=== PATIENT | male | born 1930 | race Caucasian/White ===

== ENCOUNTER 2016-02-13 19:03 | Inpatient (IN) | payer MEDICARE, OTHER ==
[~2016-02-13] VITALS: Ht 175.3 cm; Wt 91.1 kg
[~2016-02-13 19:03] MED LIST: AMLO5 PO; ASPI81CH37 CHEW; FERR325T PO; GLARGINE; LIPI40TA PO; METO50TA PO; NIAC50TA4 PO; NOVORP2 SQ; PRAD75CA PO
[2016-02-13 19:14] VITALS: BP 139/64; PULSE 65; RESP 20; TEMP 98.1; O2SAT 86
[2016-02-13] MEDS ORDERED: SODIUM CHLORIDE 0.9% FLUSH 5 ML FLUSH IVF PRN (19:15)
--- NOTE | 2016-02-13 19:17 | PD ---
HPI Chief Complaint: altered mental status Time Seen by Provider: 19:08 Travel History International Travel<30 days: No Contact w/Intl Traveler<30days: No History of Present Illness HPI This is an 85-year-old male who presents to the emergency department with fatigue, lightheadedness and weakness over the past week, with poor energy and poor exercise intolerance. His reports that he's been confused today. He was seen by Dr. correa yesterday in clinic and told everything looked good. He has been recently treated for anemia and was started on iron pills. He does say he has had black stools but this is ever since he started taking iron. He' s on Pradaxa. His thinks it's for his congestive heart failure. PFSH Past Medical History Arthritis: Yes Blood Disorders: No Anxiety: Yes (POST TRAUMATIC STRESS) Heart Rhythm Problems: No Cancer: Yes (BLADDER) Cardiac Catheterization: No Cardiovascular Problems: Yes High Cholesterol: No Chest Pain: Yes Congestive Heart Failure: No Diabetes: Yes Diminished Hearing: Yes (HEARING AIDS) Genitourinary: Yes Hypertension: Yes Immune Disorder: No Musculoskeletal: No Neurologic: No Reproductive: No Respiratory: No Myocardial Infarction: No Sickle Cell Disease: No Past Surgical History Abdominal Surgery: No Appendectomy: Yes Cardiac Surgery: Yes Cholecystectomy: Yes Coronary Artery Bypass Graft: No Ear Surgery: No Endocrine Surgery: No Eye Surgery: No Genitourinary Surgery: Yes Gynecologic Surgery: No Oral Surgery: No Thoracic Surgery: No Other Surgery: Yes Social History Alcohol Use: No Tobacco Use: No Substance Use: No Allergies-Medications (Allergen,Severity, Reaction): Coded Allergies: No Known Allergies (Verified , 02/18/10) Reported Meds & Prescriptions Reported Meds & Active Scripts Active Ferrous Sulfate 325 Mg Tab 325 Mg PO BID Pradaxa (Dabigatran) 75 Mg Cap 75 Mg PO BID Lipitor (Atorvastatin Calcium) 40 Mg Tab 40 Mg PO DAILY Norvasc (Amlodipine Besylate) 5 Mg Tab 5 Mg PO DAILY Reported [Glargine] Niacin 50 Mg Tab 20 Mg PO BID Metoprolol Tartrate 50 Mg Tab 50 Mg PO BID Novolin R Inj (Insulin Human Regular) 1,000 Unit/10 Ml Vial 0 SQ DIRECTED Sliding Scale As Directed. Aspirin Low Dose (Aspirin) 81 Mg Chew 81 Mg CHEW DAILY Review of Systems Except as stated in HPI: all other systems reviewed are Neg Physical Exam Narrative GENERAL: Pale, unwell-appearing SKIN: Warm and dry. HEAD: Atraumatic. Normocephalic. EYES: Pupils equal and round. No injection or drainage. Pale sclera. ENT: Dry mucous membranes. NECK: Trachea midline. CARDIOVASCULAR: Regular rate and rhythm. No murmur appreciated. RESPIRATORY: Clear to auscultation. Breath sounds equal bilaterally. GASTROINTESTINAL: Abdomen soft, non-tender, nondistended. MUSCULOSKELETAL: No obvious deformities. NEUROLOGICAL: Awake and alert. No obvious cranial nerve deficits. No dysarthria or aphasia. No upper or lower extremity drift. No upper extremity ataxia. PSYCHIATRIC: Appropriate mood and affect; insight and judgment normal. Data Data Orders Complete Blood Count With Diff (02/13/16 19:05) Comprehensive Metabolic Panel (02/13/16 19:05) Prothrombin Time / Inr (Pt) (02/13/16 19:05) Act Partial Throm Time (Ptt) (02/13/16 19:05) Urinalysis - C+S If Indicated (02/13/16 19:05) Type And Screen (02/13/16 19:05) Ecg Monitoring (02/13/16 19:05) Iv Access Insert/Monitor (02/13/16 19:05) Oximetry (02/13/16 19:05) Sodium Chloride 0.9% Flush (Ns Flush) (02/13/16 19:15) Troponin I (02/13/16 19:05) Thyroid Stimulating Hormone (02/13/16 19:05) Ct Brain W/O Iv Contrast(Rout) (02/13/16 ) MDM Medical Decision Making Medical Screen Exam Complete: Yes Emergency Medical Condition: Yes Interpretation(s) Vital signs are reassuring Differential Diagnosis GI bleed, urinary tract infection, dehydration, stroke, myocardial infarction, arrhythmia Narrative Course This is an 85-year-old male who presents to the emergency department with generalized fatigue and weakness that's been worsening over the past 5 days. He is very pale appearing on exam. Patient was placed on a monitor and an IV was established. EKG is demonstrates some ST depressions in the lateral leads. Patient was Hemoccult positive although he is on iron supplementation. I suspect that the patient is suffering from a GI bleed although differential is broad and includes silent myocardial infarction, urinary tract infection, and electrolyte abnormality. CT of the head will also be obtained given the patient 's episode of confusion although currently he has a normal nonfocal neurologic exam. The case Was discussed with Dr. Narvaez. Bobbi Nova MD Feb 13, 2016 19:16
[2016-02-13 19:44] LABS: AUTOMATED NEUTROPHIL # 5.7 TH/MM3 (1.8-7.7); BASOPHIL # 0.1 TH/MM3 (0-0.2); BASOPHIL % 0.6 % (0.0-2.0); EOSINOPHIL # 0.1 TH/MM3 (0-0.4); EOSINOPHIL % 0.5 % (0.0-4.0); LYMPH % 31.4 % (9.0-44.0); LYMPHOCYTE # 3.1 TH/MM3 (1.0-4.8); MEAN CELL VOLUME 101.1 FL (80.0-100.0); MEAN CORPUSCULAR HEMOGLOBIN 31.5 PG (27.0-34.0); MEAN CORPUSCULAR HGB CONC 31.2 % (32.0-36.0); MONO % 9.9 % (0.0-8.0); NEUT % 57.6 % (16.0-70.0); PLATELET COUNT 184 TH/MM3 (150-450); RED BLOOD COUNT 1.13 MIL/MM3 (4.50-5.90); WHITE BLOOD COUNT 9.9 TH/MM3 (4.0-11.0)
[2016-02-13 19:45] LABS: HEMO FLAGS AUTO DIFF
[2016-02-13 19:48] LABS: HEMATOCRIT 11.4 % (39.0-51.0)
--- NOTE | 2016-02-13 19:52 | RADRPT ---
EXAM DATE/TIME: 02/13/2016 19:24 [facility] COMPARISON: No previous studies available for comparison. INDICATIONS : Confusion fatigue,lightedheadness and weakness foe one weak RADIATION DOSE: 56.35 CTDIvol (mGy) MEDICAL HISTORY : Cardiovascular disease. Hypertension. Carcinoma, bladder.Diabetes SURGICAL HISTORY : CABG Appendectomy.Cholecystectomy. ENCOUNTER: Initial ACUITY: 1 week PAIN SCALE: 0/10 LOCATION: cranial TECHNIQUE: Multiple contiguous axial images were obtained of the head. Using automated exposure control and adj ustment of the mA and/or kV according to patient size, radiation dose was kept as low as reasonably a chievable to obtain optimal diagnostic quality images. FINDINGS: CEREBRUM: There is cerebral atrophy. Round calcified density in the right sella measures 11 mm. The ventricles are normal for age. Areas of low-attenuation are seen in the white matter and left basal ganglia. No evidence of midline shift, mass lesion, hemorrhage or acute infarction. No extra-axial fluid collect ions are seen. POSTERIOR FOSSA: The cerebellum and brainstem are intact. The 4th ventricle is midline. The cerebellopontine angle i s unremarkable. EXTRACRANIAL: The visualized portion of the orbits is intact. SKULL: The calvaria is intact. No evidence of skull fracture. CONCLUSION: 1. Cerebral atrophy and chronic ischemic small vessel vasculopathy. 2. Calcified density right sella. Aneurysm cannot be excluded. CTA brain may be warranted. Eitan Verdugo MD on February 13, 2016 at 19:48 Board Certified Radiologist. This report was verified electronically.
[2016-02-13 19:59] LABS: ANION GAP 15 MEQ/L (5-15); AST (GOT) 8 U/L (15-37); BICARBONATE 14.8 MEQ/L (21.0-32.0); BLOOD UREA NITROGEN 87 MG/DL (7-18); CHLORIDE 112 MEQ/L (98-107); GLOMERULAR FILTRATION RATE 23 ML/MIN (>89); POTASSIUM 4.7 MEQ/L (3.5-5.1); SODIUM (NA) 142 MEQ/L (136-145)
[2016-02-13 20:00] LABS: INTERNATIONAL NORMALIZED RATIO 1.1 RATIO; PROTHROMBIN TIME - PATIENT 12.4 SEC (9.8-11.6)
[2016-02-13] MEDS ORDERED: SODIUM CHLOR 0.9% 250 ML INJ 250 ML IV ONE (20:00)
[2016-02-13 20:09] LABS: ALKALINE PHOSPHATASE 57 U/L (45-117); ALT (GPT) 11 U/L (12-78); TOTAL BILIRUBIN ADULT 0.3 MG/DL (0.2-1.0)
--- NOTE | 2016-02-13 20:11 | PD ---
Physical Exam Date Seen by Provider: Feb 13, 2016 Time Seen by Provider: 19:59 Narrative 85-year-old male came to the emergency room brought by EMS with history of altered mental status, slurred speech that was transient and feeling weak for past 4 days. Patient had gone to the CT scanner and hence I was getting all the history from his . Patient has significant coronary artery disease and was seen by his advertising account manager yesterday. However today patient somehow made it to his friend's place to play cards and started having some speech issue. His brought him outside and put in in the car to drive him to the emergency room and that's when he just slumped into the seat and seemed to be unresponsive and staring. As per the she thought he was . 911 was called and patient was brought to the emergency room. Soon after I spoke with the patient was brought back from the CAT scan her and I got similar history from the patient. At that point he was awake and talking and responding appropriately to all my questions. He did not display any symptoms of stroke at that point. Patient did appear very pale. Patient was seen by the previous ER physician as soon as he came in and she had done a stool Hemoccult which was positive. Patient is on Pardaxa atrial fibrillation as per his . His was concerned that he might be anemic since he appeared so pale. Critical lab result was called from the lab personnel on hemoglobin and hematocrit which was dictated to be 3.4/11.5. I relayed this information to the patient and his family and let them know that he required blood transfusion. He was okay with that plan. I spoke with Dr. Grant from GI and asked for a consult. Patient will be getting IV Protonix bolus and drip. He will do an endoscopy and colonoscopy. I reviewed patient's test of the blood test results which reveals acute renal failure with metabolic acidosis probably all related to the GI bleeding. I have ordered 4 units of PRBC transfusion. In my opinion patient should go to the intensive care unit and I spoke with the chief nursing officer who agreed. Currently patient remains hemodynamically stable. CAT scan of the head was done and was resulted to be within normal limits from acute hemorrhage or any acute changes standpoint. Data Data Last Documented VS Vital Signs Date Time Temp Pulse Resp B/P Pulse Ox O2 Delivery O2 Flow Rate FiO2 02/13/16 19:14 98.1 65 20 139/64 86 Orders Complete Blood Count With Diff (02/13/16 19:05) Comprehensive Metabolic Panel (02/13/16 19:05) Prothrombin Time / Inr (Pt) (02/13/16 19:05) Act Partial Throm Time (Ptt) (02/13/16 19:05) Urinalysis - C+S If Indicated (02/13/16 19:05) Type And Screen (02/13/16 19:05) Ecg Monitoring (02/13/16 19:05) Iv Access Insert/Monitor (02/13/16 19:05) Oximetry (02/13/16 19:05) Sodium Chloride 0.9% Flush (Ns Flush) (02/13/16 19:15) Troponin I (02/13/16 19:05) Thyroid Stimulating Hormone (02/13/16 19:05) Ct Brain W/O Iv Contrast(Rout) (02/13/16 ) Red Blood Cells (Rbc) (02/13/16 19:57) Blood Product Administration .UPON TRANSFUSION (02/13/16 19:57) Sodium Chlor 0.9% 250 Ml Inj (Ns 250 Ml (02/13/16 20:00) Admit Order (Ed Use Only) (02/13/16 20:13) Pantoprazole Inj (Protonix Inj) (02/13/16 21:15) Pantoprazole Inj (Protonix Inj) (02/13/16 21:15) Labs Laboratory Tests Test 02/13/16 02/13/16 19:10 19:57 Prothrombin Time 12.4 SEC Prothromb Time International 1.1 RATIO Ratio Activated Partial 21.0 SEC Thromboplast Time Sodium Level 142 MEQ/L Potassium Level 4.7 MEQ/L Chloride Level 112 MEQ/L Carbon Dioxide Level 14.8 MEQ/L Anion Gap 15 MEQ/L Blood Urea Nitrogen 87 MG/DL Creatinine 2.68 MG/DL Estimat Glomerular Filtration 23 ML/MIN Rate Random Glucose 254 MG/DL Calcium Level 8.9 MG/DL Total Bilirubin 0.3 MG/DL Aspartate Amino Transf 8 U/L (AST/SGOT) Alanine Aminotransferase 11 U/L (ALT/SGPT) Alkaline Phosphatase 57 U/L Troponin I 0.03 NG/ML Total Protein 5.5 GM/DL Albumin 2.7 GM/DL Thyroid Stimulating Hormone 1.180 uIU/ML 3rd Gen Blood Type O NEGATIVE Antibody Screen NEGATIVE White Blood Count 9.9 TH/MM3 Red Blood Count 1.13 MIL/MM3 Hemoglobin 3.5 GM/DL Hematocrit 11.4 % Mean Corpuscular Volume 101.1 FL Mean Corpuscular Hemoglobin 31.5 PG Mean Corpuscular Hemoglobin 31.2 % Concent Red Cell Distribution Width 15.0 % Platelet Count 184 TH/MM3 Mean Platelet Volume 8.1 FL Neutrophils (%) (Auto) 57.6 % Lymphocytes (%) (Auto) 31.4 % Monocytes (%) (Auto) 9.9 % Eosinophils (%) (Auto) 0.5 % Basophils (%) (Auto) 0.6 % Neutrophils # (Auto) 5.7 TH/MM3 Lymphocytes # (Auto) 3.1 TH/MM3 Monocytes # (Auto) 1.0 TH/MM3 Eosinophils # (Auto) 0.1 TH/MM3 Basophils # (Auto) 0.1 TH/MM3 CBC Comment AUTO DIFF Differential Comment Crossmatch Leukocyte-Reduced Red Blood Cells Blood Bank Comment [facility] Supervised Visit with DAISHA: No Interpretation(s) Twelve-lead EKG was reviewed by me. Normal sinus rhythm, left axis deviation, interventricular conduction delay, left axis deviation, lateral T wave inversion. Heart rate of 69 bpm. Differential Diagnosis Severe anemia, intracranial hemorrhage, GI bleed Critical Care Narrative Aggregate critical care time was 45 minutes. Time to perform other separately billable procedures was not included in the critical care time. My time did not include minutes spent treating any other patients simultaneously or on activities that did not directly contribute to the patient's treatment. The services I provided to this patient were to treat and/or prevent clinically significant deterioration that could result in: GI bleed, severe anemia, symptomatic anemia, acute renal failure, metabolic acidosis I provided critical care services requiring my management, as noted below: Chart data review, documentation time, medication orders and management, vital sign assessments/reviewing monitor data, ordering and reviewing lab tests, ordering and interpreting/reviewing x-rays and diagnostic studies, care of the patient and discussion of the patient with the admitting physicians. HemaPrompt Test Point of Care Internal Pos. & Neg. Controls: Passed Fecal Specimen Occult Blood: Positive Physician Communication Physician Communication Dr. Grant, Dr. Cain Diagnosis Primary Impression: GI bleed Qualified Code: K92.2 - Gastrointestinal hemorrhage, unspecified gastrointestinal hemorrhage type Additional Impressions: Severe anemia Symptomatic anemia Acute renal failure Qualified Code: N17.9 - Acute renal failure, unspecified acute renal failure type Metabolic acidosis Admitting Information Admitting Physician Requests: Admit Jam Narvaez MD Feb 13, 2016 20:11
[2016-02-13 20:57] VITALS: BP 133/60; PULSE 63; RESP 20; TEMP 98.1; O2SAT 99
[2016-02-13] MEDS ORDERED: ACETAMINOPHEN 325 MG TAB PO PRN (21:00)
[2016-02-13] MEDS ORDERED: MAGNESIUM OXIDE 400 MG TAB PO PRN (21:00)
[2016-02-13] MEDS ORDERED: POTASSIUM CL 40 MEQ/30 ML LIQ UDC PO/TUBE PRN ×2 (21:00)
[2016-02-13] MEDS ORDERED: MAGNESIUM SULFATE INJ 2 GM in SODIUM CHLORIDE 0.9% INJ 96 ML IV PRN (21:00)
[2016-02-13] MEDS ORDERED: CHLORHEXIDINE GLUCONATE 2 % 1 PACK (2 CLOTHS) TOP PRN (21:00)
[2016-02-13] MEDS ORDERED: RESP: ALBUTEROL 2.5 MG/IPRATROPIUM 0.5 MG NEB (PRN) INH (21:00)
[2016-02-13] MEDS ORDERED: SODIUM PHOSPHATE INJ 30 MMOL in SODIUM CHLOR 0.9% 250 ML INJ 240 ML IV PRN (21:00)
[2016-02-13] MEDS ORDERED: POTASSIUM PHOSPHATE INJ 30 MMOL in SODIUM CHLOR 0.9% 250 ML INJ 250 ML IV PRN (21:00)
[2016-02-13] MEDS ORDERED: MISCELLANEOUS NURSING INFORMATION XX SCH (21:00)
[2016-02-13] MEDS ORDERED: POTASSIUM PHOSPHATE MONOBASIC 500 MG TAB PO/TUBE PRN (21:00)
[2016-02-13] MEDS ORDERED: MAGNESIUM SULFATE INJ 4 GM in SODIUM CHLORIDE 0.9% INJ 92 ML IV PRN (21:00)
[2016-02-13] MEDS ORDERED: POTASSIUM CHLOR 20 MEQ PREMIX 100 ML IV PRN ×2 (21:00)
[2016-02-13] MEDS ORDERED: POTASSIUM CHLOR 40 MEQ PREMIX 100 ML IV PRN ×2 (21:00)
[2016-02-13] MEDS ORDERED: POTASSIUM PHOSPHATE MONOBASIC 500 MG TAB PO PRN (21:00)
[2016-02-13 21:15] VITALS: BP 146/70; PULSE 66; RESP 20; TEMP 97.9; O2SAT 99
[2016-02-13] MEDS ORDERED: PANTOPRAZOLE INJ 80 MG in SODIUM CHLORIDE 0.9% INJ 35 ML IV ONE (21:15)
--- NOTE | 2016-02-13 21:15 | HHI.HP ---
[facility] Service Critical Care Medicine Primary Care Physician Nathan Reyes III, MD Admission Diagnosis GI bleed, severe anemia, symptomatic anemia Diagnosis: Travel History International Travel<30 Days: No Contact w/Intl Traveler <30 Da: No Traveled to Known Affected Are: No History of Present Illness This is an 85-year-old male who presents to the emergency department with fatigue, lightheadedness and weakness he states that began to occur several days ago. The patient's spouse reported he had periods of confusion. The patient was previously admitted 01/22/16 as an inpatient with atrial fibrillation with RVR, and CHF exacerbation at which point he was noted to be anemic. He was started on ferrous sulfate and instructed to return to his primary care provider for a GI workup to include endoscopies. He had noticed that his stools had become darker but associated to consumption of iron medication. The patient's presenting hemoglobin 3.5. Of note the patient has a history of paroxysmal atrial fibrillation and has been on Pradaxa 75 mg BID, and ASA. Critical care medicine is consulted for treatment and management Review of Systems Constitutional: COMPLAINS OF: Fatigue Respiratory: COMPLAINS OF: Shortness of breath Cardiovascular: COMPLAINS OF: Dyspnea on Exertion, Lower Extremity Edema, Orthopnea Past Family Social History Allergies: Coded Allergies: No Known Allergies (Verified , 02/13/16) Past Medical History Past Medical History see HPI Arthritis Posttraumatic stress disorder Stage IV bladder cancer status post resection and chemotherapy Hypertension Hyperlipidemia Type 2 diabetes mellitus Atrial fibrillation with RVR (see EKG 01/08/2007 and 01/16/2007) Stage 3 CKD Past Surgical History see HPI Appendectomy Cholecystectomy Bladder cancer with ostomy Cataract surgery Reported Medications Niacin 50 Mg Tab 20 Mg PO BID Metoprolol Tartrate 50 Mg Tab 50 Mg PO BID Novolin R Inj (Insulin Human Regular) 1,000 Unit/10 Ml Vial 0 SQ DIRECTED Sliding Scale As Directed. Aspirin Low Dose (Aspirin) 81 Mg Chew 81 Mg CHEW DAILY Physical Exam Vital Signs Vital Signs Date Time Temp Pulse Resp B/P Pulse Ox O2 Delivery O2 Flow Rate FiO2 02/13/16 20:57 98.1 63 20 133/60 99 Room Air 02/13/16 19:14 98.1 65 20 139/64 86 Physical Exam GENERAL: Very pale appearing critically ill male lying semirecumbent in bed SKIN: Warm and dry. HEAD: Atraumatic. Normocephalic. EYES: Pupils equal and round. No scleral icterus. No injection or drainage. ENT: No nasal bleeding or discharge. Mucous membranes pink and moist. Nasal cannula at 2 L/minute NECK: Trachea midline. No JVD. CARDIOVASCULAR: Normal rate,regular rhythm. RESPIRATORY: No accessory muscle use. Clear to auscultation. Breath sounds equal bilaterally. GASTROINTESTINAL: Abdomen soft, non-tender, nondistended. No guarding. MUSCULOSKELETAL: Extremities without clubbing, cyanosis. Ankle edema noted .No obvious deformities. NEUROLOGICAL: Awake and alert. RASS 0, oriented. No gross focal/sensory deficits. Follows commands in all 4 extremities. Laboratory Laboratory Tests Test 02/13/16 02/13/16 19:10 19:57 White Blood Count 9.9 Red Blood Count 1.13 Hemoglobin 3.5 Hematocrit 11.4 Mean Corpuscular Volume 101.1 Mean Corpuscular Hemoglobin 31.5 Mean Corpuscular Hemoglobin 31.2 Concent Red Cell Distribution Width 15.0 Platelet Count 184 Mean Platelet Volume 8.1 Neutrophils (%) (Auto) 57.6 Lymphocytes (%) (Auto) 31.4 Monocytes (%) (Auto) 9.9 Eosinophils (%) (Auto) 0.5 Basophils (%) (Auto) 0.6 Neutrophils # (Auto) 5.7 Lymphocytes # (Auto) 3.1 Monocytes # (Auto) 1.0 Eosinophils # (Auto) 0.1 Basophils # (Auto) 0.1 CBC Comment AUTO DIFF Differential Comment Prothrombin Time 12.4 Prothromb Time International 1.1 Ratio Activated Partial 21.0 Thromboplast Time Sodium Level 142 Potassium Level 4.7 Chloride Level 112 Carbon Dioxide Level 14.8 Anion Gap 15 Blood Urea Nitrogen 87 Creatinine 2.68 Estimat Glomerular Filtration 23 Rate Random Glucose 254 Calcium Level 8.9 Total Bilirubin 0.3 Aspartate Amino Transf 8 (AST/SGOT) Alanine Aminotransferase 11 (ALT/SGPT) Alkaline Phosphatase 57 Troponin I 0.03 Total Protein 5.5 Albumin 2.7 Thyroid Stimulating Hormone 1.180 3rd Gen Blood Type O NEGATIVE Antibody Screen NEGATIVE Crossmatch Leukocyte-Reduced Red Blood Cells Blood Bank Comment Result Diagram: 02/13/16190902/13/161909 Septic Shock Reassessment Heart: Irregular Lungs: Clear Skin: Warm Peripheral Pulses: Bounding Right Radial Bounding Left Radial Bounding Right Dorsalis Pedis Bounding Left Dorsalis Pedis Capillary Refill: Brisk Assessment and Plan Assessment and Plan This is an 85-year-old male, with symptomatic severe anemia, with weakness, confusion, and shortness of breath secondary to GI bleed. The patient has a known history of atrial fibrillation and has scheduled dosing twice a day of Pradaxa and ASA for his coronary artery disease. The patient has chronic kidney disease stage 3, and this possibly may be anticoagulant associated bleeding, secondary to decreased renal clearance, or of a GI focus. Neurologic: Confusion/altered mental status H/O PTSD -02/12-CT negative -Confusion resolved upon my examination, patient is alert and oriented 3 -Neurochecks per ICU protocol -Sleep hygiene for prevention of delirium Respiratory: Respiratory distress History of smoking -Maintain O2 sat greater than 92%. Continue O2 at 2 L nasal cannula -Bronchodilators PRN Cardiovascular: H/O CHF exacerbation(01/22/2016) Coronary artery disease H/O CABG Hyperlipidemia Ventricular hypertrophy Paroxysmal A. fib Hypertension -Last hospitalization A. fib with RVR w/ CHF [id number]/13/2016-the patient was placed on beta blockers with resolution -02/12 EKG-ST depression in lateral leads( probable demand ischemia) -Cardiology consult Dr. Rodriges -Hold Pradaxa -ECHO 01/23/16- EF 6065% RWMA,, TV-mild to moderate regurgitation, mild LVH , MV mild regurgitation, PASP 42 mmHG Renal: History of bladder cancer Chronic kidney disease stage III -Creatinine 2.68 -- Strict I/Os FEN/GI: GI bleed Melena -Protonix infusion -Maintain NPO status -GI consulted-planned endoscopies in a.m.. Last colonoscopy per medical record 7 years ago. -If no GI source located via imaging, versus endoscopy, will consider Idarucizumab, Pradaxa reversal -Place NG tube to LIWS -Hold ASA -Monitor BMP-BUN 87, likely secondary to bleeding Heme/ID: Anemia of chronic disease Severe anemia -secondary to Anticoagulant associated bleeding versus GI bleed -Hgb 3.5 - Monitor serial CBC every 6 hours -Will hold Pradaxa, 8085% dependency on renal clearance. Will monitor PT/PTT to monitor residual effects of Pradaxa with normally 2-3 days clearance in normal renal function -Transfuse PRBC's 4 units, consider giving 10 mg Lasix in between transfusion of PRBC's -The patient was started on FeSO4, 2 weeks ago during last hospitalization-Will resume when patient is able to begin PO intake Endocrine: Diabetes mellitus -- SSI Prophylaxis: GI Prophylaxis Protonix infusion DVT Prophylaxis -- SCDs No pharmacological DVT prophylaxis secondary to active bleeding Lines: Peripheral IVs 2 Dispo: This patient remains critically ill with one or more organ systems which are or may become a threat to life. I have spent in excess of 60 minutes discontinuously in the care and management of this patient. This time is exclusive of procedures, and includes, but is not limited to, evaluation of the patient, review of the medical record, discussions with family, consultants, nursing staff, or respiratory therapy, and documentation in the medical record. Code Status Full Discussed Condition With at bedside Rama Cain MD Feb 13, 2016 21:15
[2016-02-13] MEDS: PANTOPRAZOLE INJ 80 MG in SODIUM CHLORIDE 0.9% INJ 100 ML IV SCH (21:18)
[2016-02-13 22:15] VITALS: BP 144/62; PULSE 68; RESP 20; O2SAT 96
[2016-02-13 22:20] LABS: INDIRECT BILIRUBIN 0.1 MG/DL (0.0-0.8); TOTAL BILIRUBIN ADULT 0.2 MG/DL (0.2-1.0)
[2016-02-13 23:42] VITALS: BP 156/70; PULSE 66; RESP 16; TEMP 97.9; O2SAT 100
[2016-02-13 23:45] VITALS: BP 149/73; PULSE 71; RESP 16; TEMP 97.7; O2SAT 100
[2016-02-14] VITALS (17 sets, daily range): BP systolic 139–176; BP diastolic 59–75; PULSE 54–73; RESP 13–24; TEMP 97.7–98.1; O2SAT 95–99
[2016-02-14] MEDS ORDERED: FUROSEMIDE 20 MG/2 ML VIAL IV PUSH SCH
[2016-02-14 04:27] LABS: BACTERIA, URINE MOD /hpf; BLOOD, URINE NEG (NEG); COMMENT (UR) CULTURE INDICATED; CULTURE IF INDICATED CULTURE INDICATED; GLUCOSE,URINE NEG (NEG); KETONE, URINE NEG (NEG); MUCUS URINE FEW /lpf (OCC); NITRITE,URINE NEG (NEG); URINE COLOR LIGHT-YELLOW (YELLW/STRAW)
[2016-02-14] MEDS: CHLORHEXIDINE GLUCONATE 2 % 1 PACK (2 CLOTHS) TOP SCH (04:30)
[2016-02-14 05:27] LABS: INTERNATIONAL NORMALIZED RATIO 1.1 RATIO; PROTHROMBIN TIME - PATIENT 12.2 SEC (9.8-11.6)
--- NOTE | 2016-02-14 05:30 | EKG ---
Date Performed: 02/13/2016 Time Performed: 19:03:10 PTAGE: 85 years EKG: BASELINE ARTIFACT PRESENT. Unclear underlying rhythm MODERATE INTRAVENTRICULAR CONDUCTION D ELAY Nonspecific ST-T wave changes ABNORMAL ECG COMPARED TO PRIOR ELECTROCARDIOGRAM, Rhythm has slowe d and is regular. PREVIOUS TRACING : 01/23/2016 07.12 DOCTOR: Pedro Zurita Interpretating Date/Time 02/14/2016 05:28:27
[2016-02-14 05:38] LABS: BICARBONATE 20.2 MEQ/L (21.0-32.0); MAGNESIUM 2.4 MG/DL (1.5-2.5); POTASSIUM 4.4 MEQ/L (3.5-5.1)
[2016-02-14] MEDS ORDERED: IDARUcizUMAB INJ 100 ML IV ONE (08:00)
--- NOTE | 2016-02-14 08:17 | MB ---
cc: ABBY ALTAMIRANO MD DATE OF CONSULTATION 02/14/2016 HISTORY This is an 85-year-old gentleman who is admitted to the hospital for somewhat change in mental status and weakness. He has a history of coronary artery disease with bypass grafting in 2006 and chronic atrial fibrillation. He has been on anticoagulants and was recently seen with a CHF exacerbation in January. He was recently seen in the office and everything was felt to be going well. When he left the office and went to visit friends, he said that he became goofy and could not think straight. He came to the emergency department where he was found to have a severe anemia with a hemoglobin of 3.5 and hematocrit of 11. He has been on Pradaxa and has noted black tarry stools over the past [id number] weeks, but he attributed this to iron tablets that he had been taking for mild anemia. His electrocardiogram does confirm atrial fibrillation which is well-controlled. No chest pain or shortness of breath has been present. He is currently receiving blood transfusion. PHYSICAL EXAMINATION He is awake and alert, actually in no distress at the present time. VITAL SIGNS: His blood pressure is 140/60, pulse is 66 and irregular. LUNGS: His lungs are clear. CARDIOVASCULAR: Exam reveals an irregular rate and rhythm with no murmur or gallop. ABDOMEN: Soft. There is no tenderness, organomegaly. Bowel sounds are normal. ASSESSMENT The patient has had a life-threatening GI bleed. At this point in time, we have given him Praxbind to reverse his Pradaxa and certainly agree with blood transfusions. For the present time, we will certainly hold any of his anticoagulants and would certainly recommended a GI consultation for further evaluation. MD LAVELL Claudio/JEAN PAUL /8:04 AM /8:09 AM
--- NOTE | 2016-02-14 08:59 | PD.CONS ---
HPI History of Present Illness This is a 85 year old male patient who came to the ER for evaluation of fatigue , lightheadedness, and weakness x 1 week. He was found to have severe anemia with 3.5/11.4 and admitted for severe anemia. Of note, he has a hx atrial fibrillation and takes takes Eliquis for atrial fibrillation. He believes he took this yesterday, but is not sure. Of note, his spoke to Dr. Correa this morning and states that [facility], but that he recommended Pradaxa instead once this was resumed. The patient reports that he has been feeling as he has just "ran out of steam" to the point that he could "no longer function" for the past week. During this time, he reports that he's had a decreased appetite and has probably lost about 9 pounds. He denies any heartburn or reflux but states he did have 1 episode of nausea and vomiting last night consisting of bilious material, but no hematemesis. He denies any abdominal pain. He states that he has been told that he is anemic in the past and was started on iron supplements about 10-15 days ago. Since that time he has been having black tarry stools, but he attributed this to his iron supplements. He last had a colonoscopy 8-9 years ago and reports that this was normal. He does have a family history of colon cancer in his brother. He denies any history of GI bleeding or peptic ulcer disease. He also denies any ibuprofen or Aleve use and denies the intake of alcohol. (Carmen Magdaleno) PFSH Past Medical History Arthritis Posttraumatic stress disorder Stage IV bladder cancer, s/p resection and chemotherapy HTN Hyperlipidemia Type 2 DM Atrial fibrillation Stage 3 CKD CHF Past Surgical History Appendectomy Cholecystectomy Cystectomy with urostomy Cataract surgery (Carmen Magdaleno) Coded Allergies: No Known Allergies (Verified , 02/13/16) Medications Allergies Coded Allergies Type Severity Reaction Last Updated Verified No Known Allergies 02/13/16 Yes Active Scripts Medications Dose Route/Sig Days Date Category Dose Instructions Ferrous Sulfate 325 Mg Tab 325 Mg PO BID 01/24/16 Rx Pradaxa (Dabigatran) 75 Mg Cap 75 Mg PO BID 01/24/16 Rx Lipitor (Atorvastatin Calcium) 40 Mg Tab 40 Mg PO DAILY 01/24/16 Rx Norvasc (Amlodipine Besylate) 5 Mg Tab 5 Mg PO DAILY 01/24/16 Rx [Glargine] 01/22/16 Reported Niacin 50 Mg Tab 20 Mg PO BID 01/22/16 Reported Metoprolol Tartrate 50 Mg Tab 50 Mg PO BID 01/22/16 Reported Novolin R Inj (Insulin Human Regular) 1,000 Unit/10 Ml Vial 0 SQ DIRECTED 01/22/16 Reported Sliding Scale As Directed. Aspirin Low Dose (Aspirin) 81 Mg Chew 81 Mg CHEW DAILY 01/22/16 Reported Family History History of colon cancer in brother Social History No use of tobacco or alcohol (Carmen Magdaleno) Review of Systems Constitutional: COMPLAINS OF: Fatigue, Weight loss, Change in appetite, DENIES : Fever, Chills Respiratory: COMPLAINS OF: Shortness of breath, DENIES: Cough Cardiovascular: DENIES: Chest pain Gastrointestinal: COMPLAINS OF: Black stools, Nausea, Vomiting, Anorexia, DENIES: Abdominal pain, Bloody stools, Constipation, Diarrhea, Swelling of Abdomen, Heartburn, Hematemesis Musculoskeletal: DENIES: Joint pain Integumentary: DENIES: Abnormal pigmentation Hematologic/lymphatic: DENIES: Bruising Psychiatric: DENIES: Confusion (Carmen Magdaleno) GI Exam Vitals I&O Vital Signs Date Time Temp Pulse Resp B/P Pulse Ox O2 Delivery O2 Flow Rate FiO2 02/14/16 06:36 97.8 66 96 02/14/16 06:21 97.9 66 13 144/63 96 02/14/16 06:00 63 02/14/16 04:21 98.0 73 20 160/70 98 02/14/16 04:20 72 02/14/16 04:06 98.1 64 16 151/69 98 Nasal Cannula 2 02/14/16 03:16 97.7 66 16 139/67 96 Nasal Cannula 2 02/13/16 23:45 97.7 71 16 149/73 100 Room Air 02/13/16 23:42 97.9 66 16 156/70 100 Room Air 02/13/16 22:15 68 20 144/62 96 Room Air 02/13/16 21:15 97.9 66 20 146/70 99 Room Air 02/13/16 20:57 98.1 63 20 133/60 99 Room Air 02/13/16 19:14 98.1 65 20 139/64 86 I/O 02/13/16 02/13/16 02/13/16 02/14/16 02/14/16 02/14/16 07:00 15:00 23:00 07:00 15:00 23:00 Intake Total 1523 ml Output Total 800 ml Balance 723 ml Intake IV Total 13 ml Packed Cells 1510 ml Output Urine Total 800 ml # Voids 0 # Bowel Movements 0 Imaging Last Impressions Head CT 02/13/16 0000 Signed Impressions: Service Date/Time: Saturday, February 13, 2016 19:24 - CONCLUSION: 1. Cerebral atrophy and chronic ischemic small vessel vasculopathy. 2. Calcified density right sella. Aneurysm cannot be excluded. CTA brain may be warranted. Eitan Verdugo MD Laboratory Test 02/13/16 02/13/16 02/13/16 02/14/16 19:10 19:57 21:25 04:10 Prothrombin Time 12.4 SEC Prothromb Time International 1.1 RATIO Ratio Activated Partial 21.0 SEC Thromboplast Time Sodium Level 142 MEQ/L Potassium Level 4.7 MEQ/L Chloride Level 112 MEQ/L Carbon Dioxide Level 14.8 MEQ/L Anion Gap 15 MEQ/L Blood Urea Nitrogen 87 MG/DL Creatinine 2.68 MG/DL Estimat Glomerular Filtration 23 ML/MIN Rate Random Glucose 254 MG/DL Calcium Level 8.9 MG/DL Total Bilirubin 0.3 MG/DL 0.2 MG/DL Aspartate Amino Transf 8 U/L 11 U/L (AST/SGOT) Alanine Aminotransferase 11 U/L 14 U/L (ALT/SGPT) Alkaline Phosphatase 57 U/L 53 U/L Troponin I 0.03 NG/ML 0.02 NG/ML Total Protein 5.5 GM/DL 5.3 GM/DL Albumin 2.7 GM/DL 2.6 GM/DL Thyroid Stimulating Hormone 1.180 uIU/ML 3rd Gen Blood Type O NEGATIVE Antibody Screen NEGATIVE White Blood Count 9.9 TH/MM3 Red Blood Count 1.13 MIL/MM3 Hemoglobin 3.5 GM/DL Hematocrit 11.4 % Mean Corpuscular Volume 101.1 FL Mean Corpuscular Hemoglobin 31.5 PG Mean Corpuscular Hemoglobin 31.2 % Concent Red Cell Distribution Width 15.0 % Platelet Count 184 TH/MM3 Mean Platelet Volume 8.1 FL Neutrophils (%) (Auto) 57.6 % Lymphocytes (%) (Auto) 31.4 % Monocytes (%) (Auto) 9.9 % Eosinophils (%) (Auto) 0.5 % Basophils (%) (Auto) 0.6 % Neutrophils # (Auto) 5.7 TH/MM3 Lymphocytes # (Auto) 3.1 TH/MM3 Monocytes # (Auto) 1.0 TH/MM3 Eosinophils # (Auto) 0.1 TH/MM3 Basophils # (Auto) 0.1 TH/MM3 CBC Comment AUTO DIFF Differential Comment Crossmatch Leukocyte-Reduced Red Blood Cells Blood Bank Comment Phosphorus Level 2.8 MG/DL Direct Bilirubin 0.1 MG/DL Indirect Bilirubin 0.1 MG/DL Ammonia 17 MCMOL/L Urine Color LIGHT-YELLOW Urine Turbidity HAZY Urine pH 6.0 Urine Specific Kindred 1.012 Urine Protein TRACE mg/dL Urine Glucose (UA) NEG mg/dL Urine Ketones NEG mg/dL Urine Occult Blood NEG Urine Nitrite NEG Urine Bilirubin NEG Urine Urobilinogen LESS THAN 2.0 MG/DL Urine Leukocyte Esterase LARGE Urine RBC 2 /hpf Urine WBC 6 /hpf Urine Bacteria MOD /hpf Urine Mucus FEW /lpf Microscopic Urinalysis Comment CULTURE INDICATED Test 02/14/16 02/14/16 04:33 05:13 Nasal Screen MRSA (PCR) NEGATIVE Prothrombin Time 12.2 SEC Prothromb Time International 1.1 RATIO Ratio Sodium Level 146 MEQ/L Potassium Level 4.4 MEQ/L Chloride Level 115 MEQ/L Carbon Dioxide Level 20.2 MEQ/L Anion Gap 11 MEQ/L Blood Urea Nitrogen 88 MG/DL Creatinine 2.46 MG/DL Estimat Glomerular Filtration 25 ML/MIN Rate Random Glucose 193 MG/DL Lactic Acid Level 0.8 mmol/L Calcium Level 8.7 MG/DL Phosphorus Level 3.1 MG/DL Magnesium Level 2.4 MG/DL Troponin I 0.03 NG/ML Date/Time Procedure Status Source Growth 02/14/16 04:10 Urine Culture Received Urine Clean Catch Pending Physical Examination HEENT: Normocephalic; atraumatic; no jaundice. NECK: Neck is supple, no JVD, no lymphadenopathy. CHEST: CTA CARDIAC: Irregular ABDOMEN: Soft, nondistended, nontender; no hepatosplenomegaly; bowel sounds are present in all four quadrants. Urostomy EXTREMITIES: No clubbing, cyanosis, or edema. SKIN: Normal; no rash; no jaundice. COOKER MEAL: No focal deficits; alert and oriented times three. (Carmen Magdaleno) Assessment and Plan Plan ASSESSMENT: - Severe anemia with H&H of 3.5/11.4 on admission. Status post 4 units of packed red blood cells. No repeat labs. Stat CBC ordered. No obvious blood loss although he did have 1 episode of nausea and vomiting last night (nonbloody) and has been having black tarry stools since starting iron supplements tender 15 days ago. The patient is on a liquids at home although he is unsure if he took this yesterday. Last colonoscopy was 8-9 years ago and was normal per patient. Protonix gtt. NPO. - Black tarry stools. Patient has anemia and was started on iron supplements tended 15 days ago at which time he started having black tarry stools - Nausea and vomiting 1 last night. This consisted of bilious material and no hematemesis. Protonix drip. - Atrial fibrillation. [facility]. However reports that she spoke to Dr. correa this morning and he stated that this needed to be changed to Pradaxa once his anticoagulation was resumed - Hypernatremia per primary - Acute kidney injury on chronic kidney disease. Creatinine 2.46. GFR 25 - History of stage IV bladder cancer, status post resection and chemotherapy. Patient has a urostomy - Hypertension, hyperlipidemia, diabetes, CHF per primary PLAN: - Plan for EGD today - Obtain consents - Nothing by mouth - Protonix drip - Stat CBC and basic metabolic panel - CBC, BMP in a.m. - H&H every 6 hours 3 - Transfuse as necessary - Supportive care - Further recommendations to follow based on results of above - Patient seen and examined by Dr. Goodson and myself and this note is written on his behalf (Carmen Magdaleno) Physician Comments patient was seen and examined, agree with above note and plan, EGD today. ( Sana Goodson MD) Carmen Magdaleno Feb 14, 2016 08:59 Sana Goodson MD Feb 14, 2016 10:38
[2016-02-14] MEDS: PANTOPRAZOLE INJ 80 MG in SODIUM CHLORIDE 0.9% INJ 100 ML IV SCH (09:21)
[2016-02-14] MEDS ORDERED: PROPOFOL 200 MG/20 ML AMP IV ONE (10:48)
--- NOTE | 2016-02-14 11:20 | MR ---
cc: KIMBERLY GOODSON M.D. DATE 02/14/2016 DATE OF [address] Leon PROCEDURE Upper gastrointestinal endoscopy. ENDOSCOPIST Dr. Goodson MEDICATIONS Propofol with anesthesia. INSTRUMENT Pentax upper scope. INDICATIONS An 85-year-old gentleman with severe anemia on Pradaxa. Needs evaluation to rule out upper GI bleed. PROCEDURE After informing the patient about the procedure and complication, consent was signed. The patient was placed in his left lateral decubitus. Adequate sedation was achieved by propofol. The scope was placed in the mouth, advanced under video guidance to the second portion of the duodenum. The scope was drawn back to the stomach. Retroflexion was performed, then the scope drawn back without immediate complication. FINDINGS 1. Esophagus: Mild esophagitis grade A to B. No sign of active bleeding. 2. Stomach: Normal. 3. Duodenum: Normal. 4. No reason for the significant anemia. RECOMMENDATIONS 1. Clear liquids. 2. Colonoscopy in the morning. 3. CBC with packed RBCs as needed. 4. Protonix 40 mg daily. MD RAPHAEL Delacruz/ZACH /11:08 AM /11:15 AM
--- NOTE | 2016-02-14 11:21 | HHI.CCPN ---
Subjective Remarks/Hospital Course 02/12: This is an 85-year-old male who presents to the emergency department with fatigue, lightheadedness and weakness he states that began to occur several days ago. The patient's spouse reported he had periods of confusion. The patient was previously admitted 01/22/16 as an inpatient with atrial fibrillation with RVR, and CHF exacerbation at which point he was noted to be anemic. He was started on ferrous sulfate and instructed to return to his primary care provider for a GI workup to include endoscopies. He had noticed that his stools had become darker but associated to consumption of iron medication. The patient's presenting hemoglobin 3.5. Of note the patient has a history of paroxysmal atrial fibrillation and has been on Pradaxa 75 mg BID, and ASA. Critical care medicine is consulted for treatment and management. 02/13: Resting in bed comfortably, denies any shortness of breath or chest pain. Completed 4 units PRBC transfusions this morning. Objective Vital Signs Date Time Temp Pulse Resp B/P Pulse Ox O2 Delivery O2 Flow Rate FiO2 02/14/16 10:21 96 Nasal Cannula 2.00 02/14/16 08:00 68 02/14/16 08:00 97.9 24 148/68 Intake and Output 02/13/16 02/13/16 02/14/16 08:00 16:00 00:00 Intake Total 250 ml Output Total 400 ml Balance -150 ml Result Diagram: 02/13/16190902/14/16 0513 Objective Remarks GENERAL: pale appearing male lying semirecumbent in bed SKIN: Warm and dry. HEAD: Atraumatic. Normocephalic. EYES: Pupils equal and round. No scleral icterus. No injection or drainage. ENT: No nasal bleeding or discharge. Mucous membranes pink and moist. Nasal cannula at 2 L/minute NECK: Trachea midline. No JVD. CARDIOVASCULAR: Normal rate,regular rhythm. RESPIRATORY: No accessory muscle use. Clear to auscultation. Breath sounds equal bilaterally. GASTROINTESTINAL: Abdomen soft, non-tender, nondistended. No guarding. MUSCULOSKELETAL: Extremities without clubbing, cyanosis. Ankle edema noted .No obvious deformities. NEUROLOGICAL: Awake and alert. RASS 0, oriented. No gross focal/sensory deficits. Follows commands in all 4 extremities. A/P Assessment and Plan This is an 85-year-old male, with symptomatic severe anemia, with weakness, confusion, and shortness of breath secondary to GI bleed. The patient has a known history of atrial fibrillation and has scheduled dosing twice a day of Pradaxa and ASA for his coronary artery disease. The patient has chronic kidney disease stage 3, and this possibly may be anticoagulant associated bleeding, secondary to decreased renal clearance, or of a GI focus. Neurologic: Confusion/altered mental status H/O PTSD -02/12-CT negative -Confusion resolved upon my examination, patient is alert and oriented 3 -Neurochecks per ICU protocol -Sleep hygiene for prevention of delirium Respiratory: Respiratory distress History of smoking -Maintain O2 sat greater than 92%. Continue O2 at 2 L nasal cannula -Bronchodilators PRN Cardiovascular: H/O CHF exacerbation(01/22/2016) Coronary artery disease H/O CABG Hyperlipidemia Ventricular hypertrophy Paroxysmal A. fib Hypertension -Last hospitalization A. fib with RVR w/ CHF [id number]/13/2016-the patient was placed on beta blockers with resolution -02/12 EKG-ST depression in lateral leads( probable demand ischemia) -Cardiology consult Dr. Rodriges -Hold Pradaxa -ECHO 01/23/16- EF 6065% RWMA,, TV-mild to moderate regurgitation, mild LVH , MV mild regurgitation, PASP 42 mmHG Renal: History of bladder cancer Chronic kidney disease stage III -Creatinine 2.68 -- Strict I/Os FEN/GI: GI bleed Melena -Protonix infusion -Maintain NPO status -GI consulted-planned endoscopies in a.m.. Last colonoscopy per medical record 7 years ago. - Idarucizumab for Pradaxa reversal given on 02/13 per cardiology. -Place NG tube to LIWS -Hold ASA -Monitor BMP-BUN 87, likely secondary to bleeding Heme/ID: Anemia of chronic disease Severe anemia -secondary to Anticoagulant associated bleeding versus GI bleed -Hgb 3.5 - Monitor serial CBC every 6 hours -Will hold Pradaxa, 8085% dependency on renal clearance. Will monitor PT/PTT to monitor residual effects of Pradaxa with normally 2-3 days clearance in normal renal function -Transfuse PRBC's 4 units -The patient was started on FeSO4, 2 weeks ago during last hospitalization-Will resume when patient is able to begin PO intake Endocrine: Diabetes mellitus -- SSI Prophylaxis: GI Prophylaxis Protonix infusion DVT Prophylaxis -- SCDs No pharmacological DVT prophylaxis secondary to active bleeding Lines: Peripheral IVs 2 Dispo: Discussed with Jarred Molina NP, MD Feb 14, 2016 11:21
[2016-02-14] MEDS ORDERED: DO NOT ADM ANY ANTICOAGULANT DRUGS XX PRN (11:30)
[2016-02-14 13:36] LABS: AUTOMATED NEUTROPHIL # 6.3 TH/MM3 (1.8-7.7); BASOPHIL % 0.4 % (0.0-2.0); EOSINOPHIL # 0.1 TH/MM3 (0-0.4); EOSINOPHIL % 0.9 % (0.0-4.0); HEMATOCRIT 22.2 % (39.0-51.0); LYMPH % 14.8 % (9.0-44.0); LYMPHOCYTE # 1.3 TH/MM3 (1.0-4.8); MEAN CELL VOLUME 88.2 FL (80.0-100.0); MEAN CORPUSCULAR HEMOGLOBIN 29.5 PG (27.0-34.0); MEAN CORPUSCULAR HGB CONC 33.4 % (32.0-36.0); MONO % 11.1 % (0.0-8.0); NEUT % 72.8 % (16.0-70.0); PLATELET COUNT 133 TH/MM3 (150-450); RED BLOOD COUNT 2.51 MIL/MM3 (4.50-5.90); RED CELL DISTRIBUTION WIDTH 18.6 % (11.6-17.2); WHITE BLOOD COUNT 8.6 TH/MM3 (4.0-11.0)
[2016-02-14 13:42] LABS: HEMO FLAGS AUTO DIFF
[2016-02-14 13:52] LABS: BICARBONATE 21.2 MEQ/L (21.0-32.0); POTASSIUM 4.5 MEQ/L (3.5-5.1)
[2016-02-14 14:22] LABS: CORRECTED NUCLEATED RBC 2 /100 WBC (0-0); POLYS (SEG NEUTROPHILS) 81 % (16-70); WBC DIFF SAMPLE 100
[2016-02-14 14:23] LABS: PLATELET ESTIMATE SMEAR LOW (NORMAL); PLATELET MORPHOLOGY NORMAL (NORMAL); SCAN/DIFF FINAL DIFF MANUAL
[2016-02-14 14:25] LABS: HEMATOCRIT 22.5 % (39.0-51.0); REVIEW FLAG FINAL
[2016-02-14] MEDS ORDERED: PEG (High)/E-LYTE SOLN 4000 ML BTL PO ONE (15:00)
[2016-02-14] MEDS ORDERED: SODIUM CHLOR 0.9% 250 ML INJ 250 ML IV ONE (15:00)
--- NOTE | 2016-02-14 17:12 | PD.CONS ---
HPI Service [facility] Hospitalists Consult Requested By Dr. Truong Reason for Consult Medical management, tx from critical care Primary Care Physician Nathan Reyes III, MD Diagnoses: History of Present Illness This is an 85-year-old male who presented to the emergency department with fatigue, lightheadedness and weakness for several days. The patient's spouse reported he had periods of confusion. The patient was previously admitted 01/21 as an inpatient with atrial fibrillation with RVR, and CHF exacerbation at which point he was noted to be anemic. He was started on ferrous sulfate and instructed to return to his primary care provider for a GI workup to include endoscopies. He had noticed that his stools had become darker but associated to consumption of iron medication. The patient's presenting hemoglobin 3.5. Pt has a history of paroxysmal atrial fibrillation and has been on Pradaxa 75 mg BID, and ASA. Patient initially admitted to critical care services, had 4 units of packed RBCs transfused. Initially an NG tube was placed to low intermittent suction. Aspirin and Pradaxa were put on hold. Cardiology was consulted for evaluation. Thorax spine was administered to reverse Pradaxa. Gastroenterology was consulted and patient underwent EGD on 02/14/2016 with findings of mild gastritis but no active bleeding. A colonoscopy is scheduled for tomorrow. Patient is evaluated in the emergency room, denies any chest pain , no shortness of breath. Indicates that he had been losing some weight, approximately 10 pounds over the last couple weeks unable to really determine how long. No significant abdominal pain, appetite has been poor, no heartburn. Denies any alcohol abuse. He was also noted with acute on chronic renal insufficiency, creatinine is slowly improving. Hospitalist services are requested to assume medical management. (Pia Trevino) Review of Systems ROS Limitations: Poor Historian Constitutional: COMPLAINS OF: Fatigue, Weight loss Gastrointestinal: COMPLAINS OF: Black stools (Pia Trevino) Past Family Social History Past Medical History Arthritis Posttraumatic stress disorder Stage IV bladder cancer status post resection and chemotherapy Hypertension Hyperlipidemia Type 2 diabetes mellitus Atrial fibrillation with RVR (see EKG 01/08/2007 and 01/16/2007) Stage 3 CKD Past Surgical History Appendectomy Cholecystectomy Bladder cancer with ostomy Cataract surgery Reported Medications Reported Meds & Active Scripts Active Ferrous Sulfate 325 Mg Tab 325 Mg PO BID Pradaxa (Dabigatran) 75 Mg Cap 75 Mg PO BID Lipitor (Atorvastatin Calcium) 40 Mg Tab 40 Mg PO DAILY Norvasc (Amlodipine Besylate) 5 Mg Tab 5 Mg PO DAILY Reported [Glargine] Niacin 50 Mg Tab 20 Mg PO BID Metoprolol Tartrate 50 Mg Tab 50 Mg PO BID Novolin R Inj (Insulin Human Regular) 1,000 Unit/10 Ml Vial 0 SQ DIRECTED Sliding Scale As Directed. Aspirin Low Dose (Aspirin) 81 Mg Chew 81 Mg CHEW DAILY (Pia Trevino) Allergies: Coded Allergies: No Known Allergies (Verified , 02/13/16) Active Ordered Medications Inpatient Medications Acetaminophen (Tylenol) 650 mg Q6H PRN PO PAIN 1-10 AND/OR FEVER >101F; Start 02/13/16 at 21:00 Albuterol/ Ipratropium (Duoneb Neb) 1 ampule Q4HR NEB PRN INH WHEEZING; Start 02/13/16 at 21:00 Chlorhexidine Gluconate (Chlorhexidine 2% Cloth) 3 pack Taper DAILY@04 TOP Last administered on 02/14/16t 04:30; Start 02/14/16 at 04:00; Stop 02/09/17 at 03: 59 Chlorhexidine Gluconate 3 pack 3 pack UNSCH PRN TOP HYGIENIC CARE; Start at 21:00 Furosemide 20 mg 20 mg UNSCH X1 IV PUSH ; Start 02/14/16 at 00:00; Stop 02/14/16 at 14:00; Status DC Idarucizumab (Praxbind Inj) 100 ml @ 300 mls/hr ONCE ONCE IV ; Start 02/14/16 at 08:00; Stop 02/14/16 at 08:24; Status DC IV Flush 2 ml 2 ml UNSCH PRN IVF FLUSH AFTER USING IV ACCESS; Start 02/13/16 at 19:15 Magnesium Oxide 800 mg 800 mg UNSCH PRN PO For Magnesium 1.2 - 1.6 mg/dL; Start 02/13/16 at 21:00; Stop 02/14/16 at 11:02; Status DC Magnesium Sulfate 2 gm/Sodium Chloride 100 ml @ 50 mls/hr UNSCH PRN IV For Magnesium 1.2 - 1.6 mg/dL; Start 02/13/16 at 21:00; Stop 02/14/16 at 11:02; Status DC Magnesium Sulfate/ Sodium Chloride (Magnesium Sulfate Inj/NS Inj) 100 ml @ 50 mls/hr UNSCH PRN IV For Magnesium 0.9 - 1.1 mg/dL; Start 02/13/16 at 21:00; Stop 02/14/16 at 11:02; Status DC Miscellaneous Information ALL NURSING DEPARTME... UNSCH PRN XX SEE LABEL COMMENTS; Start 02/14/16 at 11:30; Stop 02/15/16 at 11:29 Pantoprazole Sodium 40 mg 40 mg DAILY PO ; Start 02/15/16 at 09:00 Pantoprazole Sodium 80 mg/ Sodium Chloride 35 ml @ 420 mls/hr ONCE ONCE IV Last administered on 02/13/16 21:18; Start 02/13/16 at 21:15; Stop 02/13/16 at 21: 19; Status DC Pantoprazole Sodium/Sodium Chloride (Protonix Inj/NS Inj) 100 ml @ 10 mls/hr Q10H IV Last administered on 02/14/16 09:21; Start 02/13/16 at 21:15; Stop at 11:48; Status DC Polyethylene Glycol/ Electrolytes (Colyte Liq) 4,000 ml ONCE ONCE PO ; Start at 15:00; Stop 02/14/16 at 15:01; Status DC Potassium Chloride 40 meq 40 meq UNSCH PRN PO/TUBE For Potassium 3.3 - 3.5 mEq/ L; Start 02/13/16 at 21:00; Stop 02/14/16 at 11:02; Status DC Potassium Phosphate 2000 mg 2,000 mg UNSCH PRN PO/TUBE SEE LABEL COMMENTS; Start 02/13/16 at 21:00; Stop 02/14/16 at 11:02; Status DC Potassium Phosphate/Sodium Chloride (Potassium Phosphate Inj/NS 250 ml Inj) 260 ml @ 42 mls/hr UNSCH PRN IV SEE LABEL COMMENTS; Start 02/13/16 at 21:00; Stop 02/14/16 at 11:03; Status DC Potassium Chloride (KCl 20 Meq Premix Inj) 100 ml @ 50 mls/hr Q2H PRN IV For Potassium 2.8 - 3.2 mEq/L; Start 02/13/16 at 21:00; Stop 02/14/16 at 11:02; Status DC Potassium Chloride (KCl 40 Meq/30 ml Liq) 40 meq UNSCH PRN PO/TUBE SEE LABEL COMMENTS; Start 02/13/16 at 21:00; Stop 02/14/16 at 11:02; Status DC Sodium Chloride (NS 250 ml Inj) 250 ml @ 15 mls/hr ONCE ONCE IV ; Start at 15:00; Stop 02/15/16 at 07:39 Sodium Phosphate/ Sodium Chloride (Sodium Phosphate Inj/NS 250 ml Inj) 250 ml @ 42 mls/hr UNSCH PRN IV For Phosphorus < 2.5 mg/dL; Start 02/13/16 at 21:00; Stop 02/14/16 at 11:02; Status DC Family History History of colon cancer in brother Social History Lives with , no smoking, no ETOH, no substance abuse (Pia Trevino) Physical Exam Vital Signs Vital Signs Date Time Temp Pulse Resp B/P Pulse Ox O2 Delivery O2 Flow Rate FiO2 02/14/16 14:00 65 02/14/16 12:00 66 02/14/16 12:00 98.0 67 20 156/59 99 02/14/16 11:15 98.6 66 15 149/67 98 Nasal Cannula 3 02/14/16 11:10 62 14 130/75 99 02/14/16 11:00 98.2 62 15 113/45 99 Nasal Cannula 3 02/14/16 10:21 96 Nasal Cannula 2.00 02/14/16 10:00 66 02/14/16 08:00 68 02/14/16 08:00 97.9 65 24 148/68 95 02/14/16 06:36 97.8 66 96 02/14/16 06:21 97.9 66 13 144/63 96 02/14/16 06:00 63 02/14/16 04:21 98.0 73 20 160/70 98 02/14/16 04:20 72 02/14/16 04:06 98.1 64 16 151/69 98 Nasal Cannula 2 02/14/16 03:16 97.7 66 16 139/67 96 Nasal Cannula 2 02/13/16 23:45 97.7 71 16 149/73 100 Room Air 02/13/16 23:42 97.9 66 16 156/70 100 Room Air 02/13/16 22:15 68 20 144/62 96 Room Air 02/13/16 21:15 97.9 66 20 146/70 99 Room Air 02/13/16 20:57 98.1 63 20 133/60 99 Room Air 02/13/16 19:14 98.1 65 20 139/64 86 Physical Exam GENERAL: This is a well-nourished, well-developed patient, in no apparent distress. SKIN: Pale, cool dry HEAD: Atraumatic. Normocephalic. No temporal or scalp tenderness. EYES: Pupils equal round and reactive. Extraocular motions intact. No scleral icterus. No injection or drainage. ENT: Nose without bleeding, purulent drainage or septal hematoma. Throat without erythema, tonsillar hypertrophy or exudate. Uvula midline. Airway patent. NECK: Trachea midline. No JVD or lymphadenopathy. Supple, nontender, no meningeal signs. CARDIOVASCULAR: Regular rate and rhythm without murmurs, gallops, or rubs. RESPIRATORY: Clear to auscultation. Breath sounds equal bilaterally. No wheezes , rales, or rhonchi. GASTROINTESTINAL: Abdomen soft, non-tender, nondistended. No hepato-splenomegaly , or palpable masses. No guarding. GENITOURINARY: Has urostomy in place with clear urine. MUSCULOSKELETAL: Extremities without clubbing, cyanosis, or edema. No joint tenderness, effusion, or edema noted. No calf tenderness. Negative Homans sign bilaterally. NEUROLOGICAL: Awake, alert oriented 3. Following commands, no focal deficits. Laboratory Laboratory Tests Test 02/13/16 02/13/16 02/13/16 02/14/16 19:10 19:57 21:25 04:10 Prothrombin Time 12.4 Prothromb Time International 1.1 Ratio Activated Partial 21.0 Thromboplast Time Sodium Level 142 Potassium Level 4.7 Chloride Level 112 Carbon Dioxide Level 14.8 Anion Gap 15 Blood Urea Nitrogen 87 Creatinine 2.68 Estimat Glomerular Filtration 23 Rate Random Glucose 254 Calcium Level 8.9 Total Bilirubin 0.3 0.2 Aspartate Amino Transf 8 11 (AST/SGOT) Alanine Aminotransferase 11 14 (ALT/SGPT) Alkaline Phosphatase 57 53 Troponin I 0.03 0.02 Total Protein 5.5 5.3 Albumin 2.7 2.6 Thyroid Stimulating Hormone 1.180 3rd Gen Blood Type O NEGATIVE Antibody Screen NEGATIVE White Blood Count 9.9 Red Blood Count 1.13 Hemoglobin 3.5 Hematocrit 11.4 Mean Corpuscular Volume 101.1 Mean Corpuscular Hemoglobin 31.5 Mean Corpuscular Hemoglobin 31.2 Concent Red Cell Distribution Width 15.0 Platelet Count 184 Mean Platelet Volume 8.1 Neutrophils (%) (Auto) 57.6 Lymphocytes (%) (Auto) 31.4 Monocytes (%) (Auto) 9.9 Eosinophils (%) (Auto) 0.5 Basophils (%) (Auto) 0.6 Neutrophils # (Auto) 5.7 Lymphocytes # (Auto) 3.1 Monocytes # (Auto) 1.0 Eosinophils # (Auto) 0.1 Basophils # (Auto) 0.1 CBC Comment AUTO DIFF Differential Comment Crossmatch Leukocyte-Reduced Red Blood Cells Blood Bank Comment Phosphorus Level 2.8 Direct Bilirubin 0.1 Indirect Bilirubin 0.1 Ammonia 17 Urine Color LIGHT-YELLOW Urine Turbidity HAZY Urine pH 6.0 Urine Specific [place] 1.012 Urine Protein TRACE Urine Glucose (UA) NEG Urine Ketones NEG Urine Occult Blood NEG Urine Nitrite NEG Urine Bilirubin NEG Urine Urobilinogen LESS THAN 2.0 Urine Leukocyte Esterase LARGE Urine RBC 2 Urine WBC 6 Urine Bacteria MOD Urine Mucus FEW Microscopic Urinalysis Comment CULTURE INDICATED Test 02/14/16 02/14/16 02/14/16 02/14/16 04:33 05:13 13:05 14:00 Nasal Screen MRSA (PCR) NEGATIVE Prothrombin Time 12.2 Prothromb Time International 1.1 Ratio Sodium Level 146 147 Potassium Level 4.4 4.5 Chloride Level 115 117 Carbon Dioxide Level 20.2 21.2 Anion Gap 11 9 Blood Urea Nitrogen 88 87 Creatinine 2.46 2.39 Estimat Glomerular Filtration 25 26 Rate Random Glucose 193 170 Lactic Acid Level 0.8 Calcium Level 8.7 8.5 Phosphorus Level 3.1 Magnesium Level 2.4 Troponin I 0.03 White Blood Count 8.6 Red Blood Count 2.51 Hemoglobin 7.4 Hematocrit 22.2 Mean Corpuscular Volume 88.2 Mean Corpuscular Hemoglobin 29.5 Mean Corpuscular Hemoglobin 33.4 Concent Red Cell Distribution Width 18.6 Platelet Count 133 Mean Platelet Volume 7.6 Neutrophils (%) (Auto) 72.8 Lymphocytes (%) (Auto) 14.8 Monocytes (%) (Auto) 11.1 Eosinophils (%) (Auto) 0.9 Basophils (%) (Auto) 0.4 Neutrophils # (Auto) 6.3 Lymphocytes # (Auto) 1.3 Monocytes # (Auto) 1.0 Eosinophils # (Auto) 0.1 Basophils # (Auto) 0.0 CBC Comment AUTO DIFF Differential Total Cells 100 Counted Neutrophils % (Manual) 81 Lymphocytes % 11 Monocytes % 8 Neutrophils # (Manual) 7.0 Nucleated Red Blood Cells 2 Differential Comment FINAL DIFF MANUAL Platelet Estimate LOW Platelet Morphology Comment NORMAL Blood Type O NEGATIVE Crossmatch Leukocyte-Reduced Red Blood Cells Blood Bank Comment Test 02/14/16 14:08 Hemoglobin 7.5 Hematocrit 22.5 Date/Time Procedure Status Source Growth 02/14/16 04:10 Urine Culture Received Urine Clean Catch Pending (Pia Trevino) Result Diagram: 02/14/16 1408 02/14/16 1305 Imaging Last Impressions Head CT 02/13/16 0000 Signed Impressions: Service Date/Time: Saturday, February 13, 2016 19:24 - CONCLUSION: 1. Cerebral atrophy and chronic ischemic small vessel vasculopathy. 2. Calcified density right sella. Aneurysm cannot be excluded. CTA brain may be warranted. Eitan Verdugo MD (Pia Trevino) A/P Diagnosis: (1) Severe anemia (2) GI bleed (3) Acute renal failure (4) A-fib (5) Type 2 diabetes mellitus (6) CHF (congestive heart failure) (7) hx blader cancer Assessment and Plan Thank you for this consultation 85-year-old elderly male found severely anemic, hemoglobin of 3.2, takes Pradaxa and aspirin, history of A. fib. Received 4 units of packed cells, underwent EGD on 02/14/2016 with findings of gastritis, no active bleeding. Patient did receive reversal for Pradaxa. Continue to monitor H&H closely GI following, patient to undergo colonoscopy in the morning Continue a Protonix 40 mg by mouth daily Continue to hold aspirin and Pradaxa Resume by mouth iron supplement Acute on chronic renal injury, improving Monitor BMP closely Cautious hydration Chronic CHF, stable Monitor for signs and symptoms of fluid overload History of A. fib, stable Continuous cardiac telemetry Resume beta blockers -Evaluated by Dr. James, recommends to hold anticoagulation at this time. Hypertension, stable Resume home medications Type 2 diabetes Accu-Cheks before meals and at bedtime with insulin therapy UTI Rocephin 1 g IV daily Continue to follow urine cultures History of bladder cancer, in remission, had urostomy Monitor Plan of care discussed with the patient, attending and registered nurse. Further management of the patient be dependent on the hospital course This patient was seen by myself and Dr. Ferrara, this consultation is written on his behalf (Pia Trevino) Assessment and Plan pt seen and examined in detail as above chart reviewed dw leave coordinator dw rn dw forestry laborer will follow (Blue Ferrara MD) Problem Qualifiers (1) GI bleed: Qualified Code: K92.2 - Gastrointestinal hemorrhage, unspecified gastrointestinal hemorrhage type (2) Acute renal failure: Qualified Code: N17.9 - Acute renal failure, unspecified acute renal failure type (3) A-fib: Qualified Code: I48.91 - Atrial fibrillation, unspecified type (4) CHF (congestive heart failure): Qualified Code: I50.9 - Chronic congestive heart failure, unspecified congestive heart failure type Pia Trevino Feb 14, 2016 17:12 Blue Ferrara MD Feb 14, 2016 20:33
[2016-02-14] MEDS ORDERED: GLUCAGON 1 MG/ML VIAL OTHER PRN (17:15)
[2016-02-14] MEDS ORDERED: DEXTROSE 50% IN WATER 50 ML VIAL(D50) IV PUSH PRN (17:15)
[2016-02-14] MEDS: cefTRIAXone INJ 1,000 MG in SODIUM CHLORIDE 0.9% INJ 100 ML IV SCH (17:41)
[2016-02-14] MEDS: FERROUS SULFATE 325 MG (65 MG ELEMENTAL IRON) TAB PO SCH (20:53)
[2016-02-14] MEDS: METOPROLOL TARTRATE 50 MG TAB PO SCH (20:53)
[2016-02-14] MEDS: INSULIN ASPART SUPPLEMENTAL SCALE SQ SCH (20:53)
[2016-02-14 21:41] LABS: HEMATOCRIT 26.1 % (39.0-51.0); REVIEW FLAG FINAL
[2016-02-15] VITALS (14 sets, daily range): BP systolic 134–160; BP diastolic 60–77; PULSE 51–68; RESP 16–24; TEMP 97.7–98.3; O2SAT 93–100
[2016-02-15 02:18] LABS: AUTOMATED NEUTROPHIL # 5.7 TH/MM3 (1.8-7.7); BASOPHIL % 0.4 % (0.0-2.0); EOSINOPHIL # 0.2 TH/MM3 (0-0.4); EOSINOPHIL % 2.1 % (0.0-4.0); HEMATOCRIT 25.4 % (39.0-51.0); HEMO FLAGS DIFF FINAL; LYMPH % 20.5 % (9.0-44.0); LYMPHOCYTE # 1.8 TH/MM3 (1.0-4.8); MEAN CELL VOLUME 88.2 FL (80.0-100.0); MEAN CORPUSCULAR HEMOGLOBIN 30.2 PG (27.0-34.0); MEAN CORPUSCULAR HGB CONC 34.3 % (32.0-36.0); PLATELET COUNT 138 TH/MM3 (150-450); RED BLOOD COUNT 2.88 MIL/MM3 (4.50-5.90); RED CELL DISTRIBUTION WIDTH 17.5 % (11.6-17.2); WHITE BLOOD COUNT 8.9 TH/MM3 (4.0-11.0)
[2016-02-15 02:47] LABS: BICARBONATE 21.6 MEQ/L (21.0-32.0); POTASSIUM 4.3 MEQ/L (3.5-5.1)
[2016-02-15] MEDS: CHLORHEXIDINE GLUCONATE 2 % 1 PACK (2 CLOTHS) TOP SCH (04:00)
[2016-02-15] MEDS: INSULIN ASPART SUPPLEMENTAL SCALE SQ SCH ×4 (07:00→22:08)
[2016-02-15] MEDS: METOPROLOL TARTRATE 50 MG TAB PO SCH ×2 (07:44→22:08)
[2016-02-15] MEDS: FERROUS SULFATE 325 MG (65 MG ELEMENTAL IRON) TAB PO SCH ×2 (07:44→22:11)
[2016-02-15] MEDS: PANTOPRAZOLE SOD 40 MG DELAYED RELEASE TAB PO SCH (07:45)
[2016-02-15] MEDS: amLODIPine BESYLATE 5 MG TAB PO SCH (07:45)
--- NOTE | 2016-02-15 08:50 | PD.CARD.PN ---
Subjective Subjective Remarks no CV complaints (Thai Bacon) Objective Vital Signs / I&O Vital Signs Date Time Temp Pulse Resp B/P Pulse Ox O2 Delivery O2 Flow Rate FiO2 02/15/16 06:00 60 02/15/16 04:00 98.3 57 23 134/60 100 02/15/16 04:00 57 02/15/16 02:00 59 02/15/16 00:00 98.2 56 17 160/68 100 02/15/16 00:00 56 02/14/16 22:00 54 02/14/16 20:00 97.9 68 14 176/75 99 02/14/16 20:00 68 02/14/16 19:45 97 Nasal Cannula 2.00 02/14/16 18:00 73 02/14/16 16:00 97.9 71 18 168/70 99 02/14/16 16:00 71 02/14/16 14:00 65 02/14/16 12:00 66 02/14/16 12:00 98.0 67 20 156/59 99 02/14/16 11:15 98.6 66 15 149/67 98 Nasal Cannula 3 02/14/16 11:10 62 14 130/75 99 02/14/16 11:00 98.2 62 15 113/45 99 Nasal Cannula 3 02/14/16 10:21 96 Nasal Cannula 2.00 02/14/16 10:00 66 I/O 02/14/16 02/14/16 02/14/16 02/15/16 02/15/16 02/15/16 07:00 15:00 23:00 07:00 15:00 23:00 Intake Total 1523 ml 1025 ml 1304 ml 1000 ml Output Total 800 ml 810 ml 750 ml 2825 ml Balance 723 ml 215 ml 554 ml -1825 ml Intake Oral 600 ml 900 ml 1000 ml IV Total 13 ml 25 ml 154 ml Packed Cells 1510 ml 250 ml Other 400 ml Output Urine Total 800 ml 760 ml 750 ml 1125 ml Stool Total 1700 ml Estimated Blood Loss 50 ml # Voids 0 # Bowel Movements 0 2 3 Physical Exam GENERAL: Well-nourished, well-developed patient in no apparent distress. NECK: No JVD. No carotid bruit. CARDIOVASCULAR: Regular rate and rhythm. S1/S2 no murmur, rub, or gallop. RESPIRATORY: No accessory muscle use. Clear to auscultation. Breath sounds equal bilaterally. GASTROINTESTINAL: Abdomen soft, non-tender, nondistended. MUSCULOSKELETAL: Extremities without clubbing, cyanosis, or edema. Laboratory Laboratory Tests Test 02/14/16 02/14/16 02/14/16 02/14/16 13:05 14:00 14:08 20:41 White Blood Count 8.6 TH/MM3 Red Blood Count 2.51 MIL/MM3 Hemoglobin 7.4 GM/DL 7.5 GM/DL 8.9 GM/DL Hematocrit 22.2 % 22.5 % 26.1 % Mean Corpuscular Volume 88.2 FL Mean Corpuscular Hemoglobin 29.5 PG Mean Corpuscular Hemoglobin 33.4 % Concent Red Cell Distribution Width 18.6 % Platelet Count 133 TH/MM3 Mean Platelet Volume 7.6 FL Neutrophils (%) (Auto) 72.8 % Lymphocytes (%) (Auto) 14.8 % Monocytes (%) (Auto) 11.1 % Eosinophils (%) (Auto) 0.9 % Basophils (%) (Auto) 0.4 % Neutrophils # (Auto) 6.3 TH/MM3 Lymphocytes # (Auto) 1.3 TH/MM3 Monocytes # (Auto) 1.0 TH/MM3 Eosinophils # (Auto) 0.1 TH/MM3 Basophils # (Auto) 0.0 TH/MM3 CBC Comment AUTO DIFF Differential Total Cells 100 Counted Neutrophils % (Manual) 81 % Lymphocytes % 11 % Monocytes % 8 % Neutrophils # (Manual) 7.0 TH/MM3 Nucleated Red Blood Cells 2 /100 WBC Differential Comment FINAL DIFF MANUAL Platelet Estimate LOW Platelet Morphology Comment NORMAL Sodium Level 147 MEQ/L Potassium Level 4.5 MEQ/L Chloride Level 117 MEQ/L Carbon Dioxide Level 21.2 MEQ/L Anion Gap 9 MEQ/L Blood Urea Nitrogen 87 MG/DL Creatinine 2.39 MG/DL Estimat Glomerular Filtration 26 ML/MIN Rate Random Glucose 170 MG/DL Calcium Level 8.5 MG/DL Blood Type O NEGATIVE Crossmatch Leukocyte-Reduced Red Blood Cells Blood Bank Comment Test 02/15/16 01:49 White Blood Count 8.9 TH/MM3 Red Blood Count 2.88 MIL/MM3 Hemoglobin 8.7 GM/DL Hematocrit 25.4 % Mean Corpuscular Volume 88.2 FL Mean Corpuscular Hemoglobin 30.2 PG Mean Corpuscular Hemoglobin 34.3 % Concent Red Cell Distribution Width 17.5 % Platelet Count 138 TH/MM3 Mean Platelet Volume 7.7 FL Neutrophils (%) (Auto) 64.0 % Lymphocytes (%) (Auto) 20.5 % Monocytes (%) (Auto) 13.0 % Eosinophils (%) (Auto) 2.1 % Basophils (%) (Auto) 0.4 % Neutrophils # (Auto) 5.7 TH/MM3 Lymphocytes # (Auto) 1.8 TH/MM3 Monocytes # (Auto) 1.2 TH/MM3 Eosinophils # (Auto) 0.2 TH/MM3 Basophils # (Auto) 0.0 TH/MM3 CBC Comment DIFF FINAL Differential Comment Sodium Level 148 MEQ/L Potassium Level 4.3 MEQ/L Chloride Level 118 MEQ/L Carbon Dioxide Level 21.6 MEQ/L Anion Gap 8 MEQ/L Blood Urea Nitrogen 75 MG/DL Creatinine 2.13 MG/DL Estimat Glomerular Filtration 30 ML/MIN Rate Random Glucose 133 MG/DL Calcium Level 8.6 MG/DL (Thai Bacon) Assessment and Plan Problem List: (1) GI bleed Code Status no source of GI bleed seen yet, colonoscopy today (Thai Bacon) Assessment and Plan GI workup limited no source of GIB identified. stable from cardiac standpoint would not reinitiate anticoagulation for risk of future bleeding May consider asa 81 will sign off call with further questions (Rishi Rodriges MD) Problem Qualifiers (1) GI bleed: Qualified Code: K92.2 - Gastrointestinal hemorrhage, unspecified gastrointestinal hemorrhage type Thai Bacon Feb 15, 2016 08:50 Rishi Rodriges MD Feb 15, 2016 14:46
[2016-02-15] MEDS ORDERED: PROPOFOL 200 MG/20 ML AMP IV ONE (10:00)
--- NOTE | 2016-02-15 10:29 | HHI.GIFU ---
Subjective Remarks feels ok, tolerated prep, HGb stable Objective Vitals I&O Vital Signs Date Time Temp Pulse Resp B/P Pulse Ox O2 Delivery O2 Flow Rate FiO2 02/15/16 08:00 58 02/15/16 08:00 97.7 61 20 151/67 98 02/15/16 06:00 60 02/15/16 04:00 98.3 57 23 134/60 100 02/15/16 04:00 57 02/15/16 02:00 59 02/15/16 00:00 98.2 56 17 160/68 100 02/15/16 00:00 56 02/14/16 22:00 54 02/14/16 20:00 97.9 68 14 176/75 99 02/14/16 20:00 68 02/14/16 19:45 97 Nasal Cannula 2.00 02/14/16 18:00 73 02/14/16 16:00 97.9 71 18 168/70 99 02/14/16 16:00 71 02/14/16 14:00 65 02/14/16 12:00 66 02/14/16 12:00 98.0 67 20 156/59 99 02/14/16 11:15 98.6 66 15 149/67 98 Nasal Cannula 3 02/14/16 11:10 62 14 130/75 99 02/14/16 11:00 98.2 62 15 113/45 99 Nasal Cannula 3 I/O 02/14/16 02/14/16 02/14/16 02/15/16 02/15/16 02/15/16 07:00 15:00 23:00 07:00 15:00 23:00 Intake Total 1523 ml 1025 ml 1304 ml 1000 ml Output Total 800 ml 810 ml 750 ml 2825 ml Balance 723 ml 215 ml 554 ml -1825 ml Intake Oral 600 ml 900 ml 1000 ml IV Total 13 ml 25 ml 154 ml Packed Cells 1510 ml 250 ml Other 400 ml Output Urine Total 800 ml 760 ml 750 ml 1125 ml Stool Total 1700 ml Estimated Blood Loss 50 ml # Voids 0 # Bowel Movements 0 2 3 Laboratory Laboratory Tests Test 02/14/16 02/14/16 02/14/16 02/14/16 13:05 14:00 14:08 20:41 White Blood Count 8.6 Red Blood Count 2.51 Hemoglobin 7.4 7.5 8.9 Hematocrit 22.2 22.5 26.1 Mean Corpuscular Volume 88.2 Mean Corpuscular Hemoglobin 29.5 Mean Corpuscular Hemoglobin 33.4 Concent Red Cell Distribution Width 18.6 Platelet Count 133 Mean Platelet Volume 7.6 Neutrophils (%) (Auto) 72.8 Lymphocytes (%) (Auto) 14.8 Monocytes (%) (Auto) 11.1 Eosinophils (%) (Auto) 0.9 Basophils (%) (Auto) 0.4 Neutrophils # (Auto) 6.3 Lymphocytes # (Auto) 1.3 Monocytes # (Auto) 1.0 Eosinophils # (Auto) 0.1 Basophils # (Auto) 0.0 CBC Comment AUTO DIFF Differential Total Cells 100 Counted Neutrophils % (Manual) 81 Lymphocytes % 11 Monocytes % 8 Neutrophils # (Manual) 7.0 Nucleated Red Blood Cells 2 Differential Comment FINAL DIFF MANUAL Platelet Estimate LOW Platelet Morphology Comment NORMAL Sodium Level 147 Potassium Level 4.5 Chloride Level 117 Carbon Dioxide Level 21.2 Anion Gap 9 Blood Urea Nitrogen 87 Creatinine 2.39 Estimat Glomerular Filtration 26 Rate Random Glucose 170 Calcium Level 8.5 Blood Type O NEGATIVE Crossmatch Leukocyte-Reduced Red Blood Cells Blood Bank Comment Test 02/15/16 01:49 White Blood Count 8.9 Red Blood Count 2.88 Hemoglobin 8.7 Hematocrit 25.4 Mean Corpuscular Volume 88.2 Mean Corpuscular Hemoglobin 30.2 Mean Corpuscular Hemoglobin 34.3 Concent Red Cell Distribution Width 17.5 Platelet Count 138 Mean Platelet Volume 7.7 Neutrophils (%) (Auto) 64.0 Lymphocytes (%) (Auto) 20.5 Monocytes (%) (Auto) 13.0 Eosinophils (%) (Auto) 2.1 Basophils (%) (Auto) 0.4 Neutrophils # (Auto) 5.7 Lymphocytes # (Auto) 1.8 Monocytes # (Auto) 1.2 Eosinophils # (Auto) 0.2 Basophils # (Auto) 0.0 CBC Comment DIFF FINAL Differential Comment Sodium Level 148 Potassium Level 4.3 Chloride Level 118 Carbon Dioxide Level 21.6 Anion Gap 8 Blood Urea Nitrogen 75 Creatinine 2.13 Estimat Glomerular Filtration 30 Rate Random Glucose 133 Calcium Level 8.6 Date/Time Procedure Status Source Growth 02/14/16 04:10 Urine Culture Received Urine Clean Catch Pending Physical Exam HEENT: Pupils round and reactive to light; normocephalic; atraumatic; no jaundice. Throat is clear. NECK: Neck is supple, no JVD, no lymphadenopathy. CHEST: Chest is clear to auscultation and percussion. CARDIAC: Regular rate and rhythm with no murmur gallop or rubs. ABDOMEN: Soft, nondistended, nontender; no hepatosplenomegaly; bowel sounds are present in all four quadrants. urostomy bag in abdomen EXTREMITIES: No clubbing, cyanosis, or edema. SKIN: Normal; no rash; no jaundice. SYSTEMS SOFTWARE MANAGER: No focal deficits; alert and oriented times three. Assessment and Plan Plan ASSESSMENT: - Severe anemia with H&H of 3.5/11.4 on admission. Status post 4 units of packed red blood cells. No repeat labs. Stat CBC ordered. No obvious blood loss although he did have 1 episode of nausea and vomiting last night (nonbloody) and has been having black tarry stools since starting iron supplements tender 15 days ago. The patient is on a liquids at home although he is unsure if he took this yesterday. Last colonoscopy was 8-9 years ago and was normal per patient. Protonix gtt. NPO. - Black tarry stools. Patient has anemia and was started on iron supplements tended 15 days ago at which time he started having black tarry stools - Nausea and vomiting 1 last night. This consisted of bilious material and no hematemesis. Protonix drip. - Atrial fibrillation. [facility] However reports that she spoke to Dr. correa this morning and he stated that this needed to be changed to Pradaxa once his anticoagulation was resumed - Hypernatremia per primary - Acute kidney injury on chronic kidney disease. Creatinine 2.46. GFR 25 - History of stage IV bladder cancer, status post resection and chemotherapy. Patient has a urostomy - Hypertension, hyperlipidemia, diabetes, CHF per primary 1--17 patient HGb is better, incomplete colonoscopy sever diverticulosis and tortuous colon possibly because the previous surgery, PLAN: - Plan for ACBE today - MARIBETH after ACBE - Protonix drip - CBC, BMP in a.m. - Transfuse as necessary - Supportive care Sana Goodson MD Feb 15, 2016 10:29
[2016-02-15] MEDS ORDERED: DO NOT ADM ANY ANTICOAGULANT DRUGS XX PRN (10:45)
--- NOTE | 2016-02-15 11:12 | MR ---
cc: KIMBERLY GIBBS M.D. DATE: 02/15/2016 DATE OF : [address] Cain. PROCEDURE Incomplete colonoscopy. INDICATION 85-year-old gentleman has a bladder cancer status post resection and chemotherapy. He has anemia normal EGD. PROCEDURE After informing the patient of procedure and complication consent was signed. The patient was placed on his left lateral decubitus adequate sedation was achieved by propofol. Rectal exam was performed which was normal. Scope was placed in the rectum, advanced under video guidance to about 25-30 cm. There was significant diverticulosis and severe redundancy of the colon. I was not able to pass the scope beyond that area, most likely because of his previous surgery and changes in his anatomy. The patient start retching and we were worried about aspiration so the procedure was terminated because I did not feel that I will be able to pass the scope through the colon safely FINDINGS 1. Incomplete colonoscopy. 2. Diverticulosis. RECOMMENDATIONS 1. Air contrast barium enema today. 2. Diet after air contrast barium enema 3. Further plan depends on findings. MD RAPHAEL Delacruz/shukri /10:38 AM /11:04 AM
[2016-02-15] MEDS ORDERED: MAGNESIUM CITRATE SOLN 300 ML BTL PO ONE ×2 (12:00→18:00)
--- NOTE | 2016-02-15 14:41 | RADRPT ---
EXAM DATE/TIME: 02/15/2016 00:00 [place] COMPARISON: No previous studies available for comparison. INDICATIONS : Incomplete colonoscopy. Diverticulitis. FLUORO TIME: 2.2 minutes IMAGE COUNT: CONTRAST: 1. Polibar ACB Barium Sulfate (96% w/w) MEDICAL HISTORY : Hypertension. Hypercholesterolemia. Bladder cancer. Arthritis. Diabetes. SURGICAL HISTORY : Appendectomy.Cholecystectomy. Cardiac bypass. ENCOUNTER: Subsequent ACUITY: 2 days PAIN SCORE: 0/10 LOCATION: abdomen FINDINGS: Double contrast barium enema was attempted. There is severe sigmoid diverticulosis with luminal narro wing. This results in increased sigmoid pressure which is followed by incontinence of barium that was unable to be stopped. We are unable to advance the barium beyond the sigmoid colon. CONCLUSION: 1. Incomplete barium enema. Severe sigmoid diverticulosis. Incontinence. Chris Nayak MD on February 15, 2016 at 14:37 Board Certified Radiologist. This report was verified electronically.
--- NOTE | 2016-02-15 15:49 | HHI.PR ---
Subjective Remarks Patient is feeling good Offering no complaint No pain No nausea vomiting More energy No headache and [place] no dizziness Review of system for 10 point system otherwise unremarkable Objective Objective Results - Vital Signs Date Time Temp Pulse Resp B/P Pulse Ox O2 Delivery O2 Flow Rate FiO2 02/15/16 12:00 98.0 66 22 145/65 97 02/15/16 12:00 66 02/15/16 10:44 72 14 155/75 98 02/15/16 10:24 97.4 72 14 149/68 98 02/15/16 10:00 60 02/15/16 08:00 58 02/15/16 08:00 97.7 61 20 151/67 98 02/15/16 06:00 60 02/15/16 04:00 98.3 57 23 134/60 100 02/15/16 04:00 57 02/15/16 02:00 59 02/15/16 00:00 98.2 56 17 160/68 100 02/15/16 00:00 56 02/14/16 22:00 54 02/14/16 20:00 97.9 68 14 176/75 99 02/14/16 20:00 68 02/14/16 19:45 97 Nasal Cannula 2.00 02/14/16 18:00 73 02/14/16 16:00 97.9 71 18 168/70 99 02/14/16 16:00 71 I/O 02/14/16 02/14/16 02/14/16 02/15/16 02/15/16 02/15/16 07:00 15:00 23:00 07:00 15:00 23:00 Intake Total 1523 ml 1025 ml 1304 ml 1000 ml 900 ml Output Total 800 ml 810 ml 750 ml 2825 ml 2000 ml Balance 723 ml 215 ml 554 ml -1825 ml -1100 ml Intake Oral 600 ml 900 ml 1000 ml 600 ml IV Total 13 ml 25 ml 154 ml Packed Cells 1510 ml 250 ml Other 400 ml 300 ml Output Urine Total 800 ml 760 ml 750 ml 1125 ml 1200 ml Stool Total 1700 ml 800 ml Estimated Blood Loss 50 ml # Voids 0 # Bowel Movements 0 2 3 Result Diagram: 02/15/16 0149 02/15/16 0149 Imaging Last Impressions Head CT 02/13/16 0000 Signed Impressions: Service Date/Time: Saturday, February 13, 2016 19:24 - CONCLUSION: 1. Cerebral atrophy and chronic ischemic small vessel vasculopathy. 2. Calcified density right sella. Aneurysm cannot be excluded. CTA brain may be warranted. Eitan Verdugo MD Other Results Laboratory Tests Test 02/14/16 02/15/16 20:41 01:49 Hemoglobin 8.9 8.7 Hematocrit 26.1 25.4 White Blood Count 8.9 Red Blood Count 2.88 Mean Corpuscular Volume 88.2 Mean Corpuscular Hemoglobin 30.2 Mean Corpuscular Hemoglobin 34.3 Concent Red Cell Distribution Width 17.5 Platelet Count 138 Mean Platelet Volume 7.7 Neutrophils (%) (Auto) 64.0 Lymphocytes (%) (Auto) 20.5 Monocytes (%) (Auto) 13.0 Eosinophils (%) (Auto) 2.1 Basophils (%) (Auto) 0.4 Neutrophils # (Auto) 5.7 Lymphocytes # (Auto) 1.8 Monocytes # (Auto) 1.2 Eosinophils # (Auto) 0.2 Basophils # (Auto) 0.0 CBC Comment DIFF FINAL Differential Comment Sodium Level 148 Potassium Level 4.3 Chloride Level 118 Carbon Dioxide Level 21.6 Anion Gap 8 Blood Urea Nitrogen 75 Creatinine 2.13 Estimat Glomerular Filtration 30 Rate Random Glucose 133 Calcium Level 8.6 Date/Time Procedure Status Source Growth 02/14/16 04:10 Urine Culture - Preliminary Resulted Urine Clean Catch Gram Negative Anibal Physical Exam Physical Exam GENERAL: This is a well-nourished, well-developed patient, in no apparent distress. SKIN: cool dry HEAD: Atraumatic. Normocephalic. No temporal or scalp tenderness. EYES: Pupils equal round and reactive. Extraocular motions intact. No scleral icterus. No injection or drainage. ENT: Nose without bleeding, purulent drainage or septal hematoma. Throat without erythema, tonsillar hypertrophy or exudate. Uvula midline. Airway patent. NECK: Trachea midline. No JVD or lymphadenopathy. Supple, nontender, no meningeal signs. CARDIOVASCULAR: Regular rate and rhythm without murmurs, gallops, or rubs. RESPIRATORY: Clear to auscultation. Breath sounds equal bilaterally. No wheezes , rales, or rhonchi. GASTROINTESTINAL: Abdomen soft, non-tender, nondistended. No hepato-splenomegaly , or palpable masses. No guarding. GENITOURINARY: Has urostomy in place with clear urine. MUSCULOSKELETAL: Extremities without clubbing, cyanosis, or edema. No joint tenderness, effusion, or edema noted. No calf tenderness. Negative Homans sign bilaterally. NEUROLOGICAL: Awake, alert oriented 3. Following commands, no focal deficits. A/P Assessment and Plan (1) Severe anemia (2) GI bleed (3) Acute renal failure (4) A-fib (5) Type 2 diabetes mellitus (6) CHF (congestive heart failure) (7) hx blader cancer Plan 85-year-old elderly male found severely anemic, hemoglobin was 3.2, takes Pradaxa and aspirin, history of A. fib. Received 4 units of packed cells, underwent EGD on 02/14/2016 with findings of gastritis, no active bleeding. Patient did receive reversal for Pradaxa. Continue to monitor H&H closely, stable and better GI following, patient to status post colonoscopy February 14 which is incomplete and showing diverticulosis. Status post barium enema showing incomplete, diverticulosis Continue a Protonix 40 mg by mouth daily Continue to hold aspirin and Pradaxa Resume by mouth iron supplement Acute on chronic renal injury, improving Monitor BMP closely Cautious hydration Chronic CHF, stable Monitor for signs and symptoms of fluid overload History of A. fib, stable Continuous cardiac telemetry Resume beta blockers -Evaluated by Dr. James, recommends to hold anticoagulation at this time. Hypertension, stable Resume home medications Type 2 diabetes Accu-Cheks before meals and at bedtime with insulin therapy UTI Rocephin 1 g IV daily Continue to follow urine cultures History of bladder cancer, in remission, had urostomy Monitor Plan of care discussed with the patient, and family at bedside in detail. Talked to her POA on phone in presence of family. All questions answered in detail fashion. Discussed with Registered nurse. Further management of the patient be dependent on the hospital course Labs for morning Blue Ferrara MD Feb 15, 2016 15:49
[2016-02-15] MEDS: BISACODYL EC 5 MG TABEC PO SCH ×2 (17:17→21:00)
[2016-02-15] MEDS: cefTRIAXone INJ 1,000 MG in SODIUM CHLORIDE 0.9% INJ 100 ML IV SCH (17:43)
[2016-02-16] VITALS (11 sets, daily range): BP systolic 144–176; BP diastolic 64–72; PULSE 52–73; RESP 16–25; TEMP 97.6–98.4; O2SAT 93–98
[2016-02-16] MEDS: CHLORHEXIDINE GLUCONATE 2 % 1 PACK (2 CLOTHS) TOP SCH (04:00)
[2016-02-16] MEDS: INSULIN ASPART SUPPLEMENTAL SCALE SQ SCH ×4 (07:00→20:57)
[2016-02-16] MEDS: METOPROLOL TARTRATE 50 MG TAB PO SCH ×2 (07:39→20:56)
[2016-02-16] MEDS: PANTOPRAZOLE SOD 40 MG DELAYED RELEASE TAB PO SCH (07:39)
[2016-02-16] MEDS: FERROUS SULFATE 325 MG (65 MG ELEMENTAL IRON) TAB PO SCH ×2 (07:39→20:56)
[2016-02-16] MEDS: amLODIPine BESYLATE 5 MG TAB PO SCH (07:39)
--- NOTE | 2016-02-16 09:18 | HHI.GIFU ---
Subjective Remarks Up in chair. No distress. Tolerating clear liquids. No obvious active bleeding. No GI symptoms. States that he is 85 years old and does not want to have any additional procedures done. He states that he would rather just go home and let it be. (Carmen Magdaleno) Objective Vitals I&O Vital Signs Date Time Temp Pulse Resp B/P Pulse Ox O2 Delivery O2 Flow Rate FiO2 02/16/16 06:00 61 02/16/16 05:00 98.4 56 25 152/68 93 02/16/16 04:00 56 02/16/16 02:00 55 02/16/16 00:00 52 02/16/16 00:00 97.9 52 23 144/64 96 02/15/16 22:00 51 02/15/16 20:00 98.3 62 16 149/66 100 02/15/16 20:00 62 02/15/16 19:24 93 21 02/15/16 18:34 97 Nasal Cannula 2.00 02/15/16 18:00 68 02/15/16 16:00 66 02/15/16 16:00 97.8 66 24 151/77 95 02/15/16 14:00 64 02/15/16 12:00 98.0 66 22 145/65 97 02/15/16 12:00 66 02/15/16 10:44 72 14 155/75 98 02/15/16 10:24 97.4 72 14 149/68 98 02/15/16 10:00 60 I/O 02/15/16 02/15/16 02/15/16 02/16/16 02/16/16 02/16/16 07:00 15:00 23:00 07:00 15:00 23:00 Intake Total 1000 ml 900 ml 620 ml 200 ml Output Total 2825 ml 2000 ml 500 ml 650 ml Balance -1825 ml -1100 ml 120 ml -450 ml Intake Oral 1000 ml 600 ml 500 ml 200 ml IV Total 120 ml 0 ml Other 300 ml Output Urine Total 1125 ml 1200 ml 500 ml 650 ml Stool Total 1700 ml 800 ml # Bowel Movements 0 0 Laboratory Date/Time Procedure Status Source Growth 02/14/16 04:10 Urine Culture - Preliminary Resulted Urine Clean Catch Gram Negative Anibal Imaging Last Impressions Barium Enema 02/15/16 0000 Signed Impressions: Service Date/Time: Monday, February 15, 2016 00:00 - CONCLUSION: 1. Incomplete barium enema. Severe sigmoid diverticulosis. Incontinence. Chris Nayak MD Head CT 02/13/16 0000 Signed Impressions: Service Date/Time: Saturday, February 13, 2016 19:24 - CONCLUSION: 1. Cerebral atrophy and chronic ischemic small vessel vasculopathy. 2. Calcified density right sella. Aneurysm cannot be excluded. CTA brain may be warranted. Eitan Verdugo MD Physical Exam HEENT: Normocephalic; atraumatic; no jaundice. Throat is clear. NECK: Neck is supple, no JVD, no lymphadenopathy. CHEST: CTA CARDIAC: Irregular ABDOMEN: Soft, nondistended, nontender; no hepatosplenomegaly; bowel sounds are present in all four quadrants. urostomy bag in abdomen EXTREMITIES: No clubbing, cyanosis, or edema. SKIN: Normal; no rash; no jaundice. UTILITY TELLER: No focal deficits; alert and oriented times three. (Carmen Magdaleno [facility]) Assessment and Plan Plan ASSESSMENT: - Severe anemia with H&H of 3.5/11.4 on admission. Status post 5 units of packed red blood cells. S/P EGD (02/14/16)---> mild esophagitis grade a to B. No signs of active bleeding, normal stomach, normal duodenum, no recent for the significant anemia S/P Colonoscopy (02/15/16)-----> incomplete colonoscopy, diverticulosis S/P Barium enema (02/15/16)----> incomplete barium enema. Severe sigmoid diverticulosis. Incontinent Patient is up in chair in no distress. He is not having any active bleeding. Patient reports that he is 85 years old and he does not want any further procedures and that he would rather go home and just let it be. D/W patient further evaluation with CT Colonography. Pt states that he does not wish to proceed with this either because even if it showed something, he would not want any procedures or surgery. - Nausea and vomiting 1 last night. No further episodes. - Atrial fibrillation. [facility]. However reports that she spoke to Dr. correa this morning and he stated that this needed to be changed to Pradaxa once his anticoagulation was resumed - Hypernatremia per primary - Acute kidney injury on chronic kidney disease. Creatinine 2.13 - History of stage IV bladder cancer, status post resection and chemotherapy. Patient has a urostomy - Hypertension, hyperlipidemia, diabetes, CHF per primary PLAN: - MARIBETH - Cont. PPI - Monitor labs - Transfuse as necessary - Supportive care - Patient reports that he is 85 years old and he does not want any further procedures and that he would rather go home and just let it be. D/W patient further evaluation with CT Colonography. Pt states that he does not wish to proceed with this either because even if it showed something, he would not want any procedures or surgery. - Pt is at a high risk for re-bleeding with anticoagulation, as the etiology of his anemia was not discovered and he does not want any further evaluation for this. If the risks of not receiving it outweigh the risks of bleeding and he is restarted on anticoagulation, recommend that he stays on the lowest possible dose with close monitoring. - GI will sign off, please reconsult as needed - Pt seen and examined by Dr. Goodson and myself and this note is written on his behalf (Carmen Magdaleno) Physician Comments patient was seen and examined, agree with above note, supportive care, i had a discussion with patient and , no more procedures, they understand the risk of anticoagulation and that we do not have clear reason for the source of bleeding. (Sana Goodson MD) Carmen Magdaleno Feb 16, 2016 09:17 Sana Goodson MD Feb 16, 2016 11:26
--- NOTE | 2016-02-16 15:25 | HHI.PR ---
Subjective Remarks Patient is feeling good Offering no complaint No pain No nausea vomiting More energy No headache and [place] no dizziness No bleeding per rectum Review of system for 10 point system otherwise unremarkable Objective Objective Results - Vital Signs Date Time Temp Pulse Resp B/P Pulse Ox O2 Delivery O2 Flow Rate FiO2 02/16/16 13:55 97.7 57 20 159/69 97 02/16/16 12:00 98.3 56 18 158/66 96 02/16/16 12:00 56 02/16/16 10:00 57 02/16/16 08:00 68 02/16/16 08:00 97.7 68 18 151/66 98 02/16/16 06:00 61 02/16/16 05:00 98.4 56 25 152/68 93 02/16/16 04:00 56 02/16/16 02:00 55 02/16/16 00:00 52 02/16/16 00:00 97.9 52 23 144/64 96 02/15/16 22:00 51 02/15/16 20:00 98.3 62 16 149/66 100 02/15/16 20:00 62 02/15/16 19:24 93 21 02/15/16 18:34 97 Nasal Cannula 2.00 02/15/16 18:00 68 02/15/16 16:00 66 02/15/16 16:00 97.8 66 24 151/77 95 I/O 02/15/16 02/15/16 02/15/16 02/16/16 02/16/16 02/16/16 07:00 15:00 23:00 07:00 15:00 23:00 Intake Total 1000 ml 900 ml 620 ml 200 ml Output Total 2825 ml 2000 ml 500 ml 650 ml Balance -1825 ml -1100 ml 120 ml -450 ml Intake Oral 1000 ml 600 ml 500 ml 200 ml IV Total 120 ml 0 ml Other 300 ml Output Urine Total 1125 ml 1200 ml 500 ml 650 ml Stool Total 1700 ml 800 ml # Bowel Movements 0 0 Result Diagram: 02/15/16 0149 02/15/16 0149 Imaging Last Impressions Head CT 02/13/16 0000 Signed Impressions: Service Date/Time: Saturday, February 13, 2016 19:24 - CONCLUSION: 1. Cerebral atrophy and chronic ischemic small vessel vasculopathy. 2. Calcified density right sella. Aneurysm cannot be excluded. CTA brain may be warranted. Eitan Verdugo MD Other Results Date/Time Procedure Status Source Growth 02/14/16 04:10 Urine Culture - Preliminary Resulted Urine Clean Catch Escherichia Coli Gram Negative Anibal Physical Exam Physical Exam GENERAL: This is a well-nourished, well-developed patient, in no apparent distress. SKIN: cool dry HEAD: Atraumatic. Normocephalic. No temporal or scalp tenderness. EYES: Pupils equal round and reactive. Extraocular motions intact. No scleral icterus. No injection or drainage. ENT: Airway patent. NECK: Trachea midline. No JVD or lymphadenopathy. Supple, nontender, no meningeal signs. CARDIOVASCULAR: Regular rate and rhythm without murmurs, gallops, or rubs. RESPIRATORY: Clear to auscultation. Breath sounds equal bilaterally. No wheezes , rales, or rhonchi. GASTROINTESTINAL: Abdomen soft, non-tender, nondistended. No hepato-splenomegaly , or palpable masses. No guarding. GENITOURINARY: Has urostomy in place with clear urine. MUSCULOSKELETAL: Extremities without clubbing, cyanosis, or edema. No joint tenderness, effusion, or edema noted. No calf tenderness. Negative Homans sign bilaterally. NEUROLOGICAL: Awake, alert oriented 3. Following commands, no focal deficits. A/P Assessment and Plan (1) Severe anemia (2) GI bleed (3) Acute renal failure (4) A-fib (5) Type 2 diabetes mellitus (6) CHF (congestive heart failure) (7) hx blader cancer Plan 85-year-old elderly male found severely anemic, hemoglobin was 3.2, takes Pradaxa and aspirin, history of A. fib. Received 4 units of packed cells, underwent EGD on 02/14/2016 with findings of gastritis, no active bleeding. Patient did receive reversal for Pradaxa. Continue to monitor H&H closely, stable and better GI following, patient to status post colonoscopy February 14 which is incomplete and showing diverticulosis. Status post barium enema , incomplete, showing diverticulosis Continue a Protonix 40 mg by mouth daily Continue to hold aspirin and Pradaxa Resume by mouth iron supplement Acute on chronic renal injury, improving Monitor BMP closely Cautious hydration Chronic CHF, stable Monitor for signs and symptoms of fluid overload History of A. fib, stable Continuous cardiac telemetry Resume beta blockers -Evaluated by Dr. James, recommends to hold anticoagulation at this time. Hypertension, stable Resume home medications Type 2 diabetes Accu-Cheks before meals and at bedtime with insulin therapy UTI Rocephin 1 g IV daily Continue to follow urine cultures History of bladder cancer, in remission, had urostomy Monitor Labs reviewed. Stable H&H. Stable platelet count. Slight increase in sodium. Stable kidney function Plan of care discussed with the patient, and his spouse at bedside in detail. Talked to her daughter Jeannie on phone after permission from patient and spouse. All questions answered in detail fashion. Discussed with Registered nurse. Further management of the patient be dependent on the hospital course Labs for morning Blue Ferrara MD Feb 16, 2016 15:25
[2016-02-16] MEDS: cefTRIAXone INJ 1,000 MG in SODIUM CHLORIDE 0.9% INJ 100 ML IV SCH (17:03)
[2016-02-17 00:30] VITALS: BP 170/80; PULSE 80; RESP 18; TEMP 98.4; O2SAT 96
[2016-02-17] MEDS: CHLORHEXIDINE GLUCONATE 2 % 1 PACK (2 CLOTHS) TOP SCH (03:28)
[2016-02-17 04:08] VITALS: BP 142/62; PULSE 61; RESP 16; TEMP 98.3; O2SAT 96
[2016-02-17] MEDS: INSULIN ASPART SUPPLEMENTAL SCALE SQ SCH ×2 (06:06→11:25)
[2016-02-17] MEDS: PANTOPRAZOLE SOD 40 MG DELAYED RELEASE TAB PO SCH (07:50)
[2016-02-17] MEDS: amLODIPine BESYLATE 5 MG TAB PO SCH (07:50)
[2016-02-17] MEDS: FERROUS SULFATE 325 MG (65 MG ELEMENTAL IRON) TAB PO SCH (07:50)
[2016-02-17] MEDS: METOPROLOL TARTRATE 50 MG TAB PO SCH (07:50)
[2016-02-17 08:00] VITALS: BP 142/63; PULSE 66; RESP 16; TEMP 98.1; O2SAT 98
[2016-02-17 08:47] LABS: HEMATOCRIT 27.2 % (39.0-51.0); MEAN CELL VOLUME 90.5 FL (80.0-100.0); MEAN CORPUSCULAR HEMOGLOBIN 30.4 PG (27.0-34.0); MEAN CORPUSCULAR HGB CONC 33.6 % (32.0-36.0); PLATELET COUNT 161 TH/MM3 (150-450); RED BLOOD COUNT 3.01 MIL/MM3 (4.50-5.90); RED CELL DISTRIBUTION WIDTH 18.3 % (11.6-17.2); REVIEW FLAG FINAL; WHITE BLOOD COUNT 8.5 TH/MM3 (4.0-11.0)
[2016-02-17 09:21] LABS: BICARBONATE 19.6 MEQ/L (21.0-32.0); POTASSIUM 4.1 MEQ/L (3.5-5.1)
--- NOTE | 2016-02-17 11:59 | HHI.PR ---
Subjective Remarks Patient is feeling good Offering no complaint No pain No nausea vomiting More energy No headache and [place] no dizziness No bleeding per rectum. Had normal bowel movement this morning at 4 AM Review of system for 10 point system otherwise unremarkable Objective Objective Results - Vital Signs Date Time Temp Pulse Resp B/P Pulse Ox O2 Delivery O2 Flow Rate FiO2 02/17/16 08:00 98.1 66 16 142/63 98 02/17/16 04:08 98.3 61 16 142/62 96 02/17/16 00:30 98.4 80 18 170/80 96 02/16/16 20:00 98.2 73 16 176/72 98 02/16/16 16:00 97.6 64 20 153/70 95 02/16/16 13:55 97.7 57 20 159/69 97 02/16/16 12:00 98.3 56 18 158/66 96 02/16/16 12:00 56 I/O 02/16/16 02/16/16 02/16/16 02/17/16 02/17/16 02/17/16 07:00 15:00 23:00 07:00 15:00 23:00 Intake Total 200 ml 360 ml 200 ml Output Total 650 ml 425 ml 300 ml Balance -450 ml -65 ml -100 ml Intake Oral 200 ml 360 ml 200 ml IV Total 0 ml Output Urine Total 650 ml 425 ml 300 ml # Bowel Movements 0 Result Diagram: 02/17/16 0727 02/17/16 0727 Imaging Last Impressions Head CT 02/13/16 0000 Signed Impressions: Service Date/Time: Saturday, February 13, 2016 19:24 - CONCLUSION: 1. Cerebral atrophy and chronic ischemic small vessel vasculopathy. 2. Calcified density right sella. Aneurysm cannot be excluded. CTA brain may be warranted. Eitan Verdugo MD Other Results Laboratory Tests Test 02/17/16 07:27 White Blood Count 8.5 Red Blood Count 3.01 Hemoglobin 9.2 Hematocrit 27.2 Mean Corpuscular Volume 90.5 Mean Corpuscular Hemoglobin 30.4 Mean Corpuscular Hemoglobin 33.6 Concent Red Cell Distribution Width 18.3 Platelet Count 161 Mean Platelet Volume 7.7 Sodium Level 146 Potassium Level 4.1 Chloride Level 114 Carbon Dioxide Level 19.6 Anion Gap 12 Blood Urea Nitrogen 40 Creatinine 1.93 Estimat Glomerular Filtration 33 Rate Random Glucose 116 Calcium Level 8.9 Date/Time Procedure Status Source Growth 02/14/16 04:10 Urine Culture - Final Complete Urine Clean Catch Escherichia Coli Klebsiella Oxytoca Physical Exam Physical Exam GENERAL: This is a well-nourished, well-developed patient, in no apparent distress. SKIN: cool dry HEAD: Atraumatic. Normocephalic. No temporal or scalp tenderness. EYES: Pupils equal round and reactive. Extraocular motions intact. No scleral icterus. No injection or drainage. ENT: Airway patent. NECK: Trachea midline. No JVD or lymphadenopathy. Supple, nontender, no meningeal signs. CARDIOVASCULAR: Regular rate and rhythm without murmurs, gallops, or rubs. RESPIRATORY: Clear to auscultation. Breath sounds equal bilaterally. No wheezes , rales, or rhonchi. GASTROINTESTINAL: Abdomen soft, non-tender, nondistended. No hepato-splenomegaly , or palpable masses. No guarding. GENITOURINARY: Has urostomy in place with clear urine. MUSCULOSKELETAL: Extremities without clubbing, cyanosis, or edema. No joint tenderness, effusion, or edema noted. No calf tenderness. Negative Homans sign bilaterally. NEUROLOGICAL: Awake, alert oriented 3. Following commands, no focal deficits. A/P Assessment and Plan (1) Severe anemia (2) GI bleed (3) Acute renal failure (4) A-fib (5) Type 2 diabetes mellitus (6) CHF (congestive heart failure) (7) hx blader cancer Plan 85-year-old elderly male found severely anemic, hemoglobin was 3.2, takes Pradaxa and aspirin, history of A. fib. Received 4 units of packed cells, underwent EGD on 02/14/2016 with findings of gastritis, no active bleeding. Patient did receive reversal for Pradaxa. Continue to monitor H&H closely, stable and better GI following, patient to status post colonoscopy February 14 which is incomplete and showing diverticulosis. Status post barium enema , incomplete, showing diverticulosis Continue a Protonix 40 mg by mouth daily Continue to hold aspirin and Pradaxa Resume by mouth iron supplement Acute on chronic renal injury, improving Monitor BMP closely Cautious hydration Chronic CHF, stable Monitor for signs and symptoms of fluid overload History of A. fib, stable Continuous cardiac telemetry Resume beta blockers -Evaluated by Dr. James, recommends to hold anticoagulation at this time. Hypertension, stable Resume home medications Type 2 diabetes Accu-Cheks before meals and at bedtime with insulin therapy UTI On Rocephin 1 g IV daily urine cultures followed will discharge on Cipro at home History of bladder cancer, in remission, had urostomy Monitor Labs reviewed. Stable H&H. Stable platelet count. Slight increase in sodium. Stable kidney function Plan of care discussed with the patient, and his spouse at bedside. Patient doesn't want to do any workup at all. Talked to her daughters, both, on phone after permission from patient and spouse. All questions answered in detail fashion. They all agree to honor patient's wishes in okay to discharge today. Discussed with Registered nurse. Plan to DC him today to be followed by PCP GI and cardiology as outpatient. Will be DC on aspirin 81 mg as recommended by cardiology Blue Ferrara MD Feb 17, 2016 11:59
[2016-02-17 12:00] VITALS: BP 148/67; PULSE 63; RESP 16; TEMP 97.9; O2SAT 97
--- NOTE | 2016-02-18 16:07 | HHI.DS ---
Discharge Summary Admission Date Feb 13, 2016 at 20:16 Discharge Date: Feb 17, 2016 Admitting Diagnosis GI bleed, severe anemia, symptomatic anemia (1) Severe anemia (2) GI bleed (3) Acute renal failure (4) A-fib (5) Type 2 diabetes mellitus (6) CHF (congestive heart failure) (7) hx blader cancer Procedures S/P EGD (02/14/16)---> mild esophagitis grade a to B. No signs of active bleeding, normal stomach, normal duodenum, no recent for the significant anemia S/P Colonoscopy (02/15/16)-----> incomplete colonoscopy, diverticulosis S/P Barium enema (02/15/16)----> incomplete barium enema. Severe sigmoid diverticulosis. Incontinent CBC/BMP: 02/17/16 0727 02/17/16 0727 Significant Findings Laboratory Tests Test 02/17/16 07:27 Red Blood Count 3.01 MIL/MM3 (4.50-5.90) Hemoglobin 9.2 GM/DL (13.0-17.0) Hematocrit 27.2 % (39.0-51.0) Red Cell Distribution Width 18.3 % (11.6-17.2) Sodium Level 146 MEQ/L (136-145) Chloride Level 114 MEQ/L (98-107) Carbon Dioxide Level 19.6 MEQ/L (21.0-32.0) Blood Urea Nitrogen 40 MG/DL (7-18) Creatinine 1.93 MG/DL (0.60-1.30) Estimat Glomerular Filtration 33 ML/MIN (>89) Rate Random Glucose 116 MG/DL (74-106) Imaging Last Impressions Barium Enema 02/15/16 0000 Signed Impressions: Service Date/Time: Monday, February 15, 2016 00:00 - CONCLUSION: 1. Incomplete barium enema. Severe sigmoid diverticulosis. Incontinence. Chris Nayak MD Head CT 02/13/16 0000 Signed Impressions: Service Date/Time: Saturday, February 13, 2016 19:24 - CONCLUSION: 1. Cerebral atrophy and chronic ischemic small vessel vasculopathy. 2. Calcified density right sella. Aneurysm cannot be excluded. CTA brain may be warranted. Eitan Verdugo MD Hospital Course This is an 85-year-old male who presented to the emergency department with fatigue, lightheadedness and weakness for several days. The patient's spouse reported he had periods of confusion. The patient was previously admitted 01/21 as an inpatient with atrial fibrillation with RVR, and CHF exacerbation at which point he was noted to be anemic. He was started on ferrous sulfate and instructed to return to his primary care provider for a GI workup to include endoscopies. He had noticed that his stools had become darker but associated to consumption of iron medication. The patient's presenting hemoglobin 3.5. Pt has a history of paroxysmal atrial fibrillation and has been on Pradaxa 75 mg BID, and ASA. Patient initially admitted to critical care services, had 4 units of packed RBCs transfused. Initially an NG tube was placed to low intermittent suction. Aspirin and Pradaxa were put on hold. Cardiology was consulted for evaluation. Thorax spine was administered to reverse Pradaxa. Gastroenterology was consulted and patient underwent EGD on 02/14/2016 with findings of mild gastritis but no active bleeding. A colonoscopy was scheduled. Patient was evaluated in the emergency room, denied any chest pain , no shortness of breath. Indicated that he had been losing some weight, approximately 10 pounds over the last couple weeks unable to really determine how long. No significant abdominal pain, appetite has been poor, no heartburn. Denied any alcohol abuse. He was also noted with acute on chronic renal insufficiency, creatinine was slowly improving. Hospitalist services were requested to assume medical management. He was diagnosed with: (1) Severe anemia (2) GI bleed (3) Acute renal failure (4) A-fib (5) Type 2 diabetes mellitus (6) CHF (congestive heart failure) (7) hx blader cancer (8) UTI During course of hospitalization, the following took place: 85-year-old elderly male found severely anemic, hemoglobin was 3.2, takes Pradaxa and aspirin, history of A. fib. Received 4 units of packed cells, underwent EGD on 02/14/2016 with findings of gastritis, no active bleeding. Patient did receive reversal for Pradaxa. monitored H&H closely, stable improved, after PRBC x 5 units transfusion. GI following, ot had EGD, then status post colonoscopy February 14 which is incomplete due to poor prep and showing diverticulosis. Status post barium enema , incomplete, showing diverticulosis Continued Protonix 40 mg by mouth daily Continue to hold aspirin and Pradaxa Resume by mouth iron supplement -HH improved, diet resumed, tolerated well Acute on chronic renal injury, improving Monitored BMP closely Cautious hydration -creat improved Chronic CHF, stable Monitor for signs and symptoms of fluid overload History of A. fib, stable Continuous cardiac telemetry Resumed beta blockers -Evaluated by Dr. James, recommended to hold anticoagulation at this time. Hypertension, stable Resumed home medications Type 2 diabetes Accu-Cheks before meals and at bedtime with insulin therapy UTI Pu on Rocephin 1 g IV daily urine cultures followed, positive as noted, discharged on Cipro at home History of bladder cancer, in remission, had urostomy Monitored, stable Labs reviewed. Stable H&H. Stable platelet count. Slight increase in sodium. Stable kidney function Plan of care discussed with the patient, and his spouse at bedside. Patient doesn't want to do any workup at all. Talked to her daughters, both, on phone after permission from patient and spouse. All questions answered in detail fashion. They all agree to honor patient's wishes and okay to discharge Discharged home in stable condition, instructed to follow up with PCP, GI and cardiology as outpatient. Will be DCd on aspirin 81 mg as recommended by cardiology Pt Condition on Discharge: Good Discharge Disposition: Discharge Home Discharge Instructions DIET: Follow Instructions for: Diabetic Diet Activities you can perform: Weight Bearing as Deanna Follow up Referrals: Cardiology - 2 Weeks Gastroenterology - 3 Weeks PCP Follow-up - 1 Week Continued Medications: Amlodipine (Norvasc) 5 Mg Tab 5 MG PO DAILY HTN #30 TAB Aspirin (Aspirin Low Dose) 81 Mg Chew 81 MG CHEW DAILY Ref 0 TAB Atorvastatin (Lipitor) 40 Mg Tab 40 MG PO DAILY HLD #30 TAB Ferrous Sulfate (Ferrous Sulfate) 325 Mg Tab 325 MG PO BID anemia #60 TAB Insulin Human Regular Inj (Novolin R Inj) 1,000 Unit/10 Ml Vial 0 SQ DIRECTED Sliding Scale As Directed. Blood Sugar Management #10 Ref 0 ML Metoprolol Tartrate (Metoprolol Tartrate) 50 Mg Tab 50 MG PO BID #60 Ref 0 TAB Niacin (Niacin) 50 Mg Tab 20 MG PO BID Nutritional Supplement #60 Ref 0 TAB ([Glargine]) Discontinued Medications: Dabigatran (Pradaxa) 75 Mg Cap 75 MG PO BID afib #60 Pia Juarez Feb 18, 2016 16:07
== END 2016-02-17 13:46 | disposition home or self-care (01) | DRG 378 ==
LOC: NEPE 19:03 → NEDA 20:16 → NEDH 02-14 00:16 → HIME 02-14 04:20 → N04B 02-16 13:42
PROVIDERS: ADMIT Specialist; ATTEND Specialist
PROC: 30233N1 Transfusion of Nonautologous Red Blood Cells into Peripheral Vein, Percutaneous Approach (ICD-10-PCS; principal; 2016-02-13)
PROC: 0DJ08ZZ Inspection of Upper Intestinal Tract, Via Natural or Artificial Opening Endoscopic (ICD-10-PCS; 2016-02-14)
PROC: 0DJD8ZZ Inspection of Lower Intestinal Tract, Via Natural or Artificial Opening Endoscopic (ICD-10-PCS; 2016-02-15)
DX: K92.2 Gastrointestinal hemorrhage, unspecified (principal); N17.9 Acute kidney failure, unspecified; E87.0 Hyperosmolality and hypernatremia; I13.0 Hypertensive heart and chronic kidney disease with heart failure and stage 1 through stage 4 chronic kidney disease, or unspecified chronic kidney disease; I50.9 Heart failure, unspecified; N18.3 Chronic kidney disease, stage 3 (moderate); N39.0 Urinary tract infection, site not specified; E11.22 Type 2 diabetes mellitus with diabetic chronic kidney disease; I48.0 Paroxysmal atrial fibrillation; Z79.02 Long term (current) use of antithrombotics/antiplatelets; Z79.82 Long term (current) use of aspirin; Z79.4 Long term (current) use of insulin; F43.10 Post-traumatic stress disorder, unspecified; Z85.51 Personal history of malignant neoplasm of bladder; Z93.6 Other artificial openings of urinary tract status; Z92.21 Personal history of antineoplastic chemotherapy; E78.5 Hyperlipidemia, unspecified; I25.10 Atherosclerotic heart disease of native coronary artery without angina pectoris; Z95.1 Presence of aortocoronary bypass graft; D63.8 Anemia in other chronic diseases classified elsewhere; H91.90 Unspecified hearing loss, unspecified ear; K20.9 Esophagitis, unspecified; K57.30 Diverticulosis of large intestine without perforation or abscess without bleeding
CPT/HCPCS: 36430; 70450; 74270; 74280; 80048; 80053; 80076; 81001; 82140; 82948; 83605; 83735; 84100; 84443; 84484; 85007; 85014; 85018; 85025; 85027; 85610; 85730; 86850; 86900; 86901; 86920; 87077; 87086; 87186; 87641; 93005; C9113; J0696; J1815; J7050; P9016

== ENCOUNTER 2017-04-24 11:19 | Inpatient (IN) | payer MEDICARE, OTHER ==
[~2017-04-24] VITALS: Ht 180.3 cm; Wt 113.8 kg
[2017-04-24] VITALS (13 sets, daily range): BP systolic 97–170; BP diastolic 58–119; PULSE 87–136; RESP 16–30; TEMP 97.6–98.5; O2SAT 97–100
[~2017-04-24 11:19] MED LIST changes: -ASPI81CH37 CHEW; +ASPI81CH6 CHEW; -PRAD75CA PO
[2017-04-24] MEDS ORDERED: PROPOFOL 500 MG/50 ML INJ 50 ML ONE ×2 (11:23→11:31)
[2017-04-24] MEDS ORDERED: ETOMIDATE 40 MG/20 ML VIAL ONE (11:23)
[2017-04-24] MEDS ORDERED: ROCURONIUM INJ 50 MG/5 ML VIAL ONE (11:24)
[2017-04-24] MEDS ORDERED: SODIUM CHLOR 0.9% 1000 ML INJ 1,000 ML IV ONE (11:29)
[2017-04-24] MEDS ORDERED: PANT40TA3 PO (11:35)
[2017-04-24] MEDS ORDERED: ULOR40TA PO (11:35)
[2017-04-24] MEDS ORDERED: METO50TA PO (11:35)
[2017-04-24] MEDS ORDERED: FURO1TAB61 PO (11:35)
[2017-04-24 11:42] LABS: AUTOMATED NEUTROPHIL # 7.1 TH/MM3 (1.8-7.7); BASOPHIL % 0.2 % (0.0-2.0); EOSINOPHIL # 0.1 TH/MM3 (0-0.4); EOSINOPHIL % 0.6 % (0.0-4.0); HEMATOCRIT 31.9 % (39.0-51.0); HEMOGLOBIN 10.6 GM/DL (13.0-17.0); LYMPH % 23.6 % (9.0-44.0); LYMPHOCYTE # 2.7 TH/MM3 (1.0-4.8); MEAN CELL VOLUME 94.1 FL (80.0-100.0); MEAN CORPUSCULAR HEMOGLOBIN 31.2 PG (27.0-34.0); MEAN CORPUSCULAR HGB CONC 33.1 % (32.0-36.0); MONO % 12.9 % (0.0-8.0); MONOCYTE # 1.5 TH/MM3 (0-0.9); NEUT % 62.7 % (16.0-70.0); PLATELET COUNT 183 TH/MM3 (150-450); RED BLOOD COUNT 3.39 MIL/MM3 (4.50-5.90); RED CELL DISTRIBUTION WIDTH 14.7 % (11.6-17.2); WHITE BLOOD COUNT 11.4 TH/MM3 (4.0-11.0)
--- NOTE | 2017-04-24 11:52 | RADRPT ---
EXAM DATE/TIME: 04/24/2017 11:38 [facility] COMPARISON: CT BRAIN W/O CONTRAST, February 13, 2016, 19:24. INDICATIONS : Stroke alert, left sided gaze RADIATION DOSE: 56.35 CTDIvol (mGy) This report was called by Dr. Cain to the Dr. Clemons at 11: 44 AM MEDICAL HISTORY : Non-responsive. SURGICAL HISTORY : Non-responsive. ENCOUNTER: Initial ACUITY: 1 day PAIN SCALE: Non-responsive LOCATION: cranial TECHNIQUE: Multiple contiguous axial images were obtained of the head. Using automated exposure control and adj ustment of the mA and/or kV according to patient size, radiation dose was kept as low as reasonably a chievable to obtain optimal diagnostic quality images. DICOM format image data is available electro nically for review and comparison. FINDINGS: There is probable loss of guadalupe-white differentiation involving the left temporal and parietal lobes s uggesting probable acute left MCA infarct. Clinical correlation is recommended. No acute hemorrhage i s noted. Moderate periventricular and subcortical white matter small vessel ischemic changes are note d bilaterally. An old lacunar infarct is noted involving the left caudate. Scattered old lacunar infa rcts are noted within the cerebellar hemispheres. There is a stable calcified 12 mm density within th e sella which may represent an aneurysm. CONCLUSION: 1. Loss of guadalupe-white differentiation involving left temporal and parietal lobes suggesting probable acute left MCA infarct. Clinical correlation is recommended. 2. No acute hemorrhage. 3. Moderate periventricular and subcortical white matter small vessel ischemic changes bilaterally. 4. Old lacunar infarcts within the left caudate and cerebellar hemispheres bilaterally. 5. Stable calcified 12 mm density within the sella which may represent aneurysm. Jonh Cain MD on April 24, 2017 at 11:45 Board Certified Radiologist. This report was verified electronically.
[2017-04-24 11:56] LABS: INTERNATIONAL NORMALIZED RATIO 1.1 RATIO; PROTHROMBIN TIME - PATIENT 10.7 SEC (9.8-11.6)
[2017-04-24 12:05] LABS: TROPONIN I LESS THAN 0.02 NG/ML (0.02-0.05)
[2017-04-24] MEDS ORDERED: niCARdipine INJ 25 MG in SODIUM CHLOR 0.9% 250 ML INJ 240 ML IV ONE (12:15)
[2017-04-24] MEDS ORDERED: ALTEPLASE BOLUS 9 MG/9 ML SYR IV ONE (12:15)
[2017-04-24] MEDS ORDERED: DILTIAZEM HCL 25 MG/5 ML VIAL IV ONE (12:15)
[2017-04-24] MEDS ORDERED: MISCELLANEOUS NURSING INFORMATION XX PRN (12:15)
[2017-04-24] MEDS ORDERED: ALTEPLASE DRIP IV ONE (12:15)
[2017-04-24] MEDS ORDERED: SODIUM CHLORIDE 0.9% 50 ML BAG IVF ONE (12:15)
[2017-04-24] MEDS ORDERED: DILTIAZEM HCL 50 MG/10 ML VIAL ONE (12:16)
--- NOTE | 2017-04-24 12:23 | PD ---
HPI Chief Complaint: Stroke Alert Time Seen by Provider: 11:29 Travel History International Travel<30 days: No Contact w/Intl Traveler<30days: No Traveled to known affect area: No History of Present Illness HPI The patient is a 86-year-old male who presents to the emergency department via EMS as a stroke alert. The patient was last seen normal at approximately 10:40 AM while putting on his COLLIN hose. The patient states the patient fell back, went to sleep, she took a nap, over, she awakened the patient was not acting appropriately. When EMS arrived they noted that the patient had a left gaze, was not moving the right side of his body. Stroke alert was called in the field. Upon arrival the patient had rhonchorous respirations, left gaze, would not follow commands. However, if you raise his left arm or left leg he would move them. The patient would not move the right arm or right leg. Stroke alert was called. No further information was obtainable from the patient. PFSH Past Medical History Arthritis: Yes Blood Disorders: No Anxiety: Yes (POST TRAUMATIC STRESS) Heart Rhythm Problems: No Cancer: Yes (BLADDER) Cardiac Catheterization: No Cardiovascular Problems: Yes High Cholesterol: No Chest Pain: Yes Congestive Heart Failure: No Diabetes: Yes Patient Takes Glucophage: No Diminished Hearing: Yes (HEARING AIDS) Genitourinary: Yes Hypertension: Yes Immune Disorder: No Musculoskeletal: No Neurologic: No Reproductive: No Respiratory: No Myocardial Infarction: No Sickle Cell Disease: No Tetanus Vaccination: Unknown Past Surgical History Abdominal Surgery: No Appendectomy: Yes Cardiac Surgery: Yes Cholecystectomy: Yes 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) Ear Surgery: No Endocrine Surgery: No Eye Surgery: No Genitourinary Surgery: Yes (BLADDERECTOMY WITH UROSTOMY BAG) Gynecologic Surgery: No Oral Surgery: No Thoracic Surgery: No Other Surgery: Yes Family History Family Myocardial Infarction: Yes (mother) Social History Alcohol Use: No Tobacco Use: No Substance Use: No Allergies-Medications (Allergen,Severity, Reaction): Coded Allergies: No Known Allergies (Verified Adverse Reaction, Unknown, 04/24/17) Reported Meds & Prescriptions Reported Meds & Active Scripts Active Lipitor (Atorvastatin Calcium) 40 Mg Tab 40 Mg PO DAILY Reported Uloric (Febuxostat) 40 Mg Tab 40 Mg PO DAILY Pantoprazole (Pantoprazole Sodium) 40 Mg Tab 40 Mg PO DAILY Metoprolol Tartrate 50 Mg Tab 50 Mg PO BID Lasix (Furosemide) 80 Mg Tab 80 Mg PO DAILY Novolin R Inj (Insulin Human Regular) 1,000 Unit/10 Ml Vial 0 SQ DIRECTED Sliding Scale As Directed. Aspirin Low Dose (Aspirin) 81 Mg Chew 81 Mg CHEW DAILY Review of Systems ROS Limitations: Clinical Condition Except as stated in HPI: all other systems reviewed are Neg Neurologic: Positive: Weakness, Focal Abnormalities, Slurred Speech Physical Exam Exam Limitations: Clinical Condition Narrative GENERAL: Eyes open, nonverbal 86-year-old male with a left gaze. SKIN: Focused skin assessment warm/dry. HEAD: Atraumatic. Normocephalic. EYES: Pupils equal and round. 2 mm bilateral, left gaze. ENT: Significant for live in the oropharynx. NECK: Trachea midline. No JVD. CARDIOVASCULAR: Irregularly irregular with a heart rate in the 130s. RESPIRATORY: No accessory muscle use. Rhonchi noted left and right base. GASTROINTESTINAL: Abdomen soft, non-tender, nondistended. Urostomy bag in place. MUSCULOSKELETAL: No obvious deformities. No clubbing. No cyanosis. No edema. COLLIN hose in place lower extremities. NEUROLOGICAL: Eyes open, nonverbal, left gaze. Will move the left arm and left leg but not the right arm and right leg. A basic. PSYCHIATRIC: Unable to obtain. Data Data Last Documented VS Vital Signs Date Time Temp Pulse Resp B/P (MAP) Pulse Ox O2 Delivery O2 Flow Rate FiO2 04/24/17 12:18 120 170/119 04/24/17 12:07 100 80 04/24/17 11:44 16 Ventilator 04/24/17 11:20 2.00 04/24/17 11:20 98.3 Orders Orders Etomidate Inj (Amidate Inj) (04/24/17 11:23) Propofol 500 Mg/50 Ml Inj (Diprivan 500 (04/24/17 11:23) Rocuronium Inj (Zemuron Inj) (04/24/17 11:24) Diet Npo (04/24/17 Lunch) Activity Bed Rest (04/24/17 ) Electrocardiogram (04/24/17 ) I-Stat Profile (04/24/17 11:29) Prothrombin Time / Inr (Pt) (04/24/17 11:29) Act Partial Throm Time (Ptt) (04/24/17 11:29) Complete Blood Count With Diff (04/24/17 11:29) Fibrinogen (04/24/17 11:29) Creatine Kinase (Cpk) (04/24/17 11:29) Troponin I (04/24/17 11:29) Ua Includes Microscopic (04/24/17 11:29) Drug Screen, Random Urine (04/24/17 11:29) Type And Screen (04/24/17 11:29) Ct Brain W/O Iv Contrast(Rout) (04/24/17 ) Chest, Single Ap (04/24/17 ) Consult Neurology (04/24/17 ) Blood Glucose (04/24/17 11:29) Ecg Monitoring (04/24/17 11:29) Neuro Checks Q2HX12,Q4H (04/24/17 11:29) Nursing Bedside Swallow Assess .ONCE (04/24/17 11:29) Iv Access Insert/Monitor (04/24/17 11:29) NPO (04/24/17 11:29) Oximetry (04/24/17 11:29) Resp Oxygen Nc Stroke (04/24/17 ) Sodium Chlor 0.9% 1000 Ml Inj (Ns 1000 M (04/24/17 11:29) Cath For Specimen (04/24/17 11:29) Propofol 500 Mg/50 Ml Inj (Diprivan 500 (04/24/17 11:31) (Hub Use Only)Inp Phy Cons/Ref (04/24/17 11:41) Nicardipine Inj (Cardene Inj) (04/24/17 12:03) Nicardipine Inj (Cardene Inj) (04/24/17 12:15) ^ Call Pharmacy (04/24/17 12:01) Nih Stroke Scale - Nihss .ONCE (04/24/17 12:01) Urinary Catheter Insert/Apply (04/24/17 12:01) Anticoagulant Alert (04/24/17 12:01) ^ Post Infusion Restrictions (04/24/17 12:01) ^ Medication Alert (04/24/17 12:01) Vital Signs (Adult) .As directed (04/24/17 12:01) Notify Dr: Blood Pressure (04/24/17 12:01) ^ Medication Alert (04/24/17 12:01) Alteplase Bolus (Activase Bolus) (04/24/17 12:15) Alteplase Drip (Activase Drip) (04/24/17 12:15) Sodium Chloride 0.9% Inj (Ns Inj) (04/24/17 12:15) [facility] (04/24/17 12:15) Resp Oxygen Nc Stroke (04/24/17 ) Ct Brain W/O Iv Contrast(Rout) (04/25/17 ) Mri Brain W/O Contrast (04/24/17 ) Mra Brain W/O Contrast (Cow) (04/24/17 ) Diltiazem Inj (Cardizem Inj) (04/24/17 12:15) Diltiazem Inj (Cardizem Inj) (04/24/17 12:16) Atorvastatin (Lipitor) (04/25/17 09:00) Furosemide (Lasix) (04/25/17 09:00) Metoprolol Tartrate (Lopressor) (04/24/17 21:00) Labs Laboratory Tests Test 04/24/17 11:18 White Blood Count 11.4 TH/MM3 Red Blood Count 3.39 MIL/MM3 Hemoglobin 10.6 GM/DL Bedside Hemoglobin 10.2 G/DL Hematocrit 31.9 % Bedside Hematocrit 30.0 % Mean Corpuscular Volume 94.1 FL Mean Corpuscular Hemoglobin 31.2 PG Mean Corpuscular Hemoglobin Concent 33.1 % Red Cell Distribution Width 14.7 % Platelet Count 183 TH/MM3 Mean Platelet Volume 8.0 FL Neutrophils (%) (Auto) 62.7 % Lymphocytes (%) (Auto) 23.6 % Monocytes (%) (Auto) 12.9 % Eosinophils (%) (Auto) 0.6 % Basophils (%) (Auto) 0.2 % Neutrophils # (Auto) 7.1 TH/MM3 Lymphocytes # (Auto) 2.7 TH/MM3 Monocytes # (Auto) 1.5 TH/MM3 Eosinophils # (Auto) 0.1 TH/MM3 Basophils # (Auto) 0.0 TH/MM3 CBC Comment DIFF FINAL Differential Comment Prothrombin Time 10.7 SEC Prothromb Time International Ratio 1.1 RATIO Activated Partial Thromboplast Time 20.4 SEC Fibrinogen 328 mg/dL Bedside Sodium 141 MMOL/L Bedside Potassium 4.3 MMOL/L Bedside Chloride 109 MMOL/L Bedside Blood Urea Nitrogen 50 MG/DL Bedside Creatinine 3.1 MG/DL Bedside Glucose 95 MG/DL Total Creatine Kinase 34 U/L Troponin I LESS THAN 0.02 NG/ML MDM Medical Screen Exam Complete: Yes Emergency Medical Condition: Yes Medical Record Reviewed: Yes EKG Prior to Arrival: No Differential Diagnosis Differential diagnoses includes CVA, embolic disease, metabolic disease, intracranial hemorrhage, TIA, seizure, complicated migraine. Narrative Course IV was established, labs are drawn and sent, the patient was placed on director veterinary monitoring and continuous pulse oximetry monitoring. The patient had a left gaze, was not protecting his airway, and had rhonchorous respirations. Therefore, the patient was intubated using rapid sequence intubation with rocuronium and etomidate. A stroke alert was called, the patient went immediately to CT, suspicious for a large left MCA infarct. However, creatinine was elevated at 3.1, had a discussion with interventional radiologist. After discussion it was agreed no CTA would be performed, however , stat MRA would be performed after TPA. I did discuss the patient with the neurologist, Dr. Sewell, and the patient's at bedside. After discussion in regards to the risk and benefits of the TPA, risk including bleeding, benefits including improvement stroke scale, she was agreeable to TPA. The patient received TPA, when on a Cardene drip. He also received Cardizem 15 mg intravenously for A. fib with RVR. The patient then went to the MRI suite for an MRA of the brain. Critical Care Narrative Aggregate critical care time was 50 minutes. Time to perform other separately billable procedures was not included in the critical care time. My time did not include minutes spent treating any other patients simultaneously or on activities that did not directly contribute to the patient's treatment. The services I provided to this patient were to treat and/or prevent clinically significant deterioration that could result in: Anoxia, hypoxia, aspiration, arrhythmia, . I provided critical care services requiring my management, as noted below: Chart data review, documentation time, medication orders and management, vital sign assessments/reviewing monitor data, ordering and reviewing lab tests, ordering and interpreting/reviewing x-rays and diagnostic studies, care of the patient and discussion of the patient with the admitting physicians. Stroke Alert NIHSS NIH Stroke Scale Result: 23 NIHSS Time Completed: 11:25 Procedures Procedure Narrative The patient was put in optimal position for the procedure. Rapid sequence intubation was initiated by me using 20 milligrams of etomidate IV and 100 milligrams of rocuronium IV. The patient was intubated with a 8.5 cuffed endotracheal tube. Tube placement was confirmed by visualization of the tube and balloon passing through the cords, capnometry and subsequent chest x-ray. Breath sounds were equal and well aerated bilaterally postintubation. No breath sounds over stomach. Patient tolerated procedure well. Interpretation(s) EKG reveals A. fib with RVR. ST depressions in V5 and V6. Q wave noted in lead 3 and aVF. Moderate intraventricular conduction delay. Laboratory Tests Test 04/24/17 11:18 White Blood Count 11.4 TH/MM3 Red Blood Count 3.39 MIL/MM3 Hemoglobin 10.6 GM/DL Bedside Hemoglobin 10.2 G/DL Hematocrit 31.9 % Bedside Hematocrit 30.0 % Mean Corpuscular Volume 94.1 FL Mean Corpuscular Hemoglobin 31.2 PG Mean Corpuscular Hemoglobin Concent 33.1 % Red Cell Distribution Width 14.7 % Platelet Count 183 TH/MM3 Mean Platelet Volume 8.0 FL Neutrophils (%) (Auto) 62.7 % Lymphocytes (%) (Auto) 23.6 % Monocytes (%) (Auto) 12.9 % Eosinophils (%) (Auto) 0.6 % Basophils (%) (Auto) 0.2 % Neutrophils # (Auto) 7.1 TH/MM3 Lymphocytes # (Auto) 2.7 TH/MM3 Monocytes # (Auto) 1.5 TH/MM3 Eosinophils # (Auto) 0.1 TH/MM3 Basophils # (Auto) 0.0 TH/MM3 CBC Comment DIFF FINAL Differential Comment Prothrombin Time 10.7 SEC Prothromb Time International Ratio 1.1 RATIO Activated Partial Thromboplast Time 20.4 SEC Fibrinogen 328 mg/dL Bedside Sodium 141 MMOL/L Bedside Potassium 4.3 MMOL/L Bedside Chloride 109 MMOL/L Bedside Blood Urea Nitrogen 50 MG/DL Bedside Creatinine 3.1 MG/DL Bedside Glucose 95 MG/DL Total Creatine Kinase 34 U/L Troponin I LESS THAN 0.02 NG/ML Physician Communication Physician Communication I discussed the patient Dr. Bravo who agrees with admission to [facility]. Diagnosis Diagnosis: Primary Impression: CVA (cerebral vascular accident) Qualified Codes: I63.9 - Cerebral infarction, unspecified Additional Impression: Aphasia Admitting Physician Requests: Admit Condition: Critical Talib Clemons MD Apr 24, 2017 12:23
[2017-04-24] MEDS ORDERED: SENNOSIDES 8.6 MG TAB PO PRN (12:30)
[2017-04-24] MEDS ORDERED: MAGNESIUM HYDROXIDE SUSP 30 ML CUP PO PRN (12:30)
[2017-04-24] MEDS ORDERED: LACTULOSE SYRUP 20 GM/30 ML CUP PO PRN (12:30)
[2017-04-24] MEDS ORDERED: ONDANSETRON HCL 4 MG/2 ML VIAL IV PUSH PRN (12:30)
[2017-04-24] MEDS ORDERED: RESP: ALBUTEROL 2.5 MG/IPRATROPIUM 0.5 MG NEB (PRN) INH (12:30)
[2017-04-24] MEDS ORDERED: MISCELLANEOUS NURSING INFORMATION XX SCH (12:30)
[2017-04-24] MEDS ORDERED: ACETAMINOPHEN 325 MG TAB PO PRN (12:30)
[2017-04-24] MEDS ORDERED: CHLORHEXIDINE GLUCONATE 2 % 1 PACK (2 CLOTHS) TOP PRN (12:30)
[2017-04-24] MEDS ORDERED: BISACODYL 10 MG SUPP RECTAL PRN (12:30)
[2017-04-24] MEDS ORDERED: PROPOFOL 1000 MG/100 ML INJ 100 ML IV PRN ×2 (12:30→13:45)
--- NOTE | 2017-04-24 12:47 | RADRPT ---
EXAM DATE/TIME: 04/24/2017 12:24 [facility] COMPARISON: CHEST SINGLE AP, January 22, 2016, 17:10. INDICATIONS : ET tube placement. Stroke alert. MEDICAL HISTORY : Non-responsive. SURGICAL HISTORY : Non-responsive. ENCOUNTER: Initial ACUITY: 1 day PAIN SCORE: Non-responsive. LOCATION: Bilateral chest FINDINGS: Portable AP view of the chest demonstrates cardiac silhouette size at the upper limits for normal in this patient post median sternotomy and CABG. Endotracheal tube is present with distal tip measuring 3.5 cm from the [place]. Nasogastric tube distal tip is in the gastric body. Lungs are underinflated w ith atelectasis at the left lung base. No effusion, consolidation, or pneumothorax is seen. The bones and soft tissues demonstrate no acute finding. CONCLUSION: 1. Endotracheal tube in appropriate position with tip measuring 3.5 cm from the [place]. 2. Atelectasis at the left lung base. No acute pulmonary abnormality is seen. Edward Monterroso MD on April 24, 2017 at 12:43 Board Certified Radiologist. This report was verified electronically.
[2017-04-24] MEDS ORDERED: MORPHINE SULFATE 2 MG/ML INJ IV PUSH PRN (13:00)
[2017-04-24] MEDS ORDERED: VERAPAMIL HCL 5 MG/2 ML VIAL ONE (13:04)
--- NOTE | 2017-04-24 13:37 | PD.CONS ---
History of Present Illness Service Neurology Consult Requested By er Reason for Consult stroke alert Primary Care Physician Nathan Reyes III, History of Present Illness 86 y/o m last normal 1040 am today. brought in as stroke alert after noted pt to be confused. in er. noted to have left gaze deviation, rt hemiplegia. needed airway protection and was intubated in er. based on exam and symptoms flet pt had an acute stroke. iv tpa offered to pt and discussed with spouse to assist with decision making. discussed by er md and myself. she would like to proceed understanding >6% ich, systemic bleeding, , risk in his case of bleed based on higher nihss, advanced age. no cta's done 2/2 depressed gfr. sent for mri/mra to r/o large vessel occlusion. no previous hx of stroke per spouse. was on pradaxa for afib cardioembolic protection but stopped 2/2 anemia. in fact had recent procrit injection. hx obtained from medical chart. Review of Systems intubated, unable to give any hx Past Family Social History Allergies: Coded Allergies: No Known Allergies (Verified , 02/13/16) Past Medical History Past Medical History Anemia Arthritis Posttraumatic stress disorder Stage IV bladder cancer status post resection and chemotherapy 2007/2008 Hypertension Hyperlipidemia Type 2 diabetes mellitus Atrial fibrillation REKG 01/08/2007 and 01/16/2007 Stage 3 CKD Past Surgical History Appendectomy Cholecystectomy Bladder cancer with ostomy Cataract surgery Past Family Social History Allergies: Coded Allergies: No Known Allergies (Verified Allergy, Unknown, 04/24/17) Active Ordered Medications Current Medications Medications (Trade) Dose Ordered Sig/Melanie Route Start Time Stop Time Status Last Admin Sodium Chloride 1,000 ml @ 70 mls/hr [id number] ONCE IV 04/24/17 11:29 04/25/17 01:46 04/24/17 12:19 Miscellaneous Information No Heparin, Warfarin, Aspir... UNSCH PRN XX 04/24/17 12:15 04/25/17 12:14 (Lipitor) 40 mg DAILY PO 04/25/17 09:00 (Lasix) 80 mg DAILY PO 04/25/17 09:00 (Lopressor) 50 mg BID PO 04/24/17 21:00 Sodium Chloride 1,000 ml @ 75 mls/hr [id number] IV 04/24/17 12:45 (Tylenol) 650 mg Q6H PRN PO 04/24/17 12:30 (Morphine Inj) 2 mg Q2H PRN IV PUSH 04/24/17 13:00 (Pepcid Inj) 20 mg Q12HR IV PUSH 04/24/17 21:00 (Zofran Inj) 4 mg Q6H PRN IV PUSH 04/24/17 12:30 (Duoneb Neb) 1 ampule Q4HR NEB PRN INH 04/24/17 12:30 Miscellaneous Information 1 [id number] XX 04/24/17 12:30 (Chlorhexidine 2% Cloth) 3 pack Taper DAILY@04 TOP 04/25/17 04:00 04/21/18 03:59 (Chlorhexidine 2% Cloth) 3 pack UNSCH PRN TOP 04/24/17 12:30 (Melissa-Colace) 1 tab BID PO 04/24/17 21:00 (Milk Of Magnesia Liq) 30 ml Q12H PRN PO 04/24/17 12:30 (Senokot) 17.2 mg Q12H PRN PO 04/24/17 12:30 (Dulcolax Supp) 10 mg DAILY PRN RECTAL 04/24/17 12:30 (Lactulose Liq) 30 ml DAILY PRN PO 04/24/17 12:30 Propofol 100 ml @ 0 mls/hr TITRATE PRN IV 04/24/17 12:30 UNV (Peridex 0.12% Liq) 15 ml BID@08,20 MT 04/24/17 20:00 Exam I&O / VS Vital Signs Date Time Temp Pulse Resp B/P (MAP) Pulse Ox O2 Delivery O2 Flow Rate FiO2 04/24/17 12:48 87 16 97/63 (74) 100 Ventilator 04/24/17 12:18 120 170/119 04/24/17 12:07 100 80 04/24/17 11:44 112 16 166/88 (114) 100 Ventilator 100 04/24/17 11:30 100 04/24/17 11:30 100 100 04/24/17 11:20 97 04/24/17 11:20 97 Nasal Cannula 2.00 04/24/17 11:20 98.3 133 20 170/119 (136) 97 Exam Comments intubated, left gaze deviation, aphasic, rt hemiplegia, nihss 23 Review/Management Diagnosis/Plan: (1) Acute ischemic left MCA stroke ICD Codes: I63.512 - Cerebral infarction due to unspecified occlusion or stenosis of left middle cerebral artery Status: Acute Plan: left mca stroke probably cardioembolic from afib. not on OAC 2/2 anemia, hx of gib recs post tpa order set bp <180/100 f/u mra brain for possible intervention by IR scd's d/w pt's pouse, daughter -in -law. undestand prognosis and want to do whatever tx we can to try to keep him independent. prognosis guarded. pt critically ill (2) Afib ICD Codes: I48.91 - Unspecified atrial fibrillation Status: Chronic (3) Anemia ICD Codes: D64.9 - Anemia, unspecified Status: Chronic (4) CHF (congestive heart failure) ICD Codes: I50.9 - Heart failure, unspecified Status: Acute (5) Acute renal failure ICD Codes: N17.9 - Acute kidney failure, unspecified Status: Acute Problem Qualifiers (1) Afib: Qualified Codes: I48.0 - Paroxysmal atrial fibrillation Missael Sewell MD Apr 24, 2017 13:37
[2017-04-24] MEDS ORDERED: ROCURONIUM INJ 100 MG/10 ML VIAL IV ONE (13:45)
[2017-04-24] MEDS ORDERED: ETOMIDATE 20 MG/10 ML VIAL IV PUSH ONE (13:45)
[2017-04-24] MEDS ORDERED: ROCURONIUM INJ 50 MG/5 ML VIAL IV ONE (14:00)
[2017-04-24] MEDS ORDERED: ceFAZolin 2 GM PREMIX 50 ML ONE (14:08)
[2017-04-24] MEDS ORDERED: PROPOFOL 1000 MG/100 ML IV PRN (14:15)
[2017-04-24] MEDS ORDERED: RASS Change Order XX ONE (14:15)
[2017-04-24] MEDS ORDERED: IODIXANOL 320 MG/ML 50 ML VIAL (for RAD SPEC) I-ARTERIAL ONE (14:35)
--- NOTE | 2017-04-24 14:39 | HHI.HP ---
[facility] Service Critical Care Medicine Primary Care Physician Nathan Reyes III, MD Admission Diagnosis stroke alert, CVA, aphasia, chronic renal failure Diagnosis: (1) Acute ischemic left MCA stroke Diagnosis: Principal (2) Aphasia Diagnosis: Principal (3) Hypertensive urgency Diagnosis: Principal (4) Afib Diagnosis: Secondary (5) Chronic renal disease, stage 3, moderately decreased glomerular filtration rate (GFR) between 30-59 mL/min/1.73 square meter Diagnosis: Secondary (6) Type 2 diabetes mellitus Diagnosis: Secondary Chief Complaint: Confused. Travel History International Travel<30 Days: No Contact w/Intl Traveler <30 Da: No Traveled to Known Affected Are: No History of Present Illness 86 y/o right handed man developed aphasia and right side weakness early today. Came to ED where CT head revealed right MCA ischemic stroke. Longstanding history of a-fib, systolic heart failure, hypertension. Review of Systems ROS Unobtainable, confused. No family. Past Family Social History Allergies: Coded Allergies: No Known Allergies (Verified Allergy, Unknown, 04/24/17) Past Medical History Past Family Social History Allergies: Coded Allergies: No Known Allergies (Verified , 02/13/16) Past Medical History Past Medical History Anemia Arthritis Posttraumatic stress disorder Stage IV bladder cancer status post resection and chemotherapy Hypertension Hyperlipidemia Type 2 diabetes mellitus Atrial fibrillation EKG 01/08/2007 and 01/16/2007 Stage 3 CKD Past Surgical History Appendectomy Cholecystectomy Bladder cancer with ostomy Cataract surgery Review of Systems Review of Systems Past Family Social History Past Family Social History Allergies: Coded Allergies: No Known Allergies (Verified Allergy, Unknown, 04/24/17) Active Ordered Medications Current Medications Medications (Trade) Dose Ordered Sig/Melanie Route Start Time Stop Time Status Last Admin Sodium Chloride 1,000 ml @ 70 mls/hr [id number] ONCE IV 04/24/17 11:29 04/25/17 01:46 04/24/17 12:19 Miscellaneous Information No Heparin, Warfarin, Aspir... UNSCH PRN XX 04/24/17 12:15 04/25/17 12:14 (Lipitor) 40 mg DAILY PO 04/25/17 09:00 (Lasix) 80 mg DAILY PO 04/25/17 09:00 (Lopressor) 50 mg BID PO 04/24/17 21:00 Sodium Chloride 1,000 ml @ 75 mls/hr [id number] IV 04/24/17 12:45 (Tylenol) 650 mg Q6H PRN PO 04/24/17 12:30 (Morphine Inj) 2 mg Q2H PRN IV PUSH 04/24/17 13:00 (Pepcid Inj) 20 mg Q12HR IV PUSH 04/24/17 21:00 (Zofran Inj) 4 mg Q6H PRN IV PUSH 04/24/17 12:30 (Duoneb Neb) 1 ampule Q4HR NEB PRN INH 04/24/17 12:30 Miscellaneous Information 1 Q361D XX 04/24/17 12:30 (Chlorhexidine 2% Cloth) 3 pack Taper DAILY@04 TOP 04/25/17 04:00 04/21/18 03:59 (Chlorhexidine 2% Cloth) 3 pack UNSCH PRN TOP 04/24/17 12:30 (Melissa-Colace) 1 tab BID PO 04/24/17 21:00 (Milk Of Magnesia Liq) 30 ml Q12H PRN PO 04/24/17 12:30 (Senokot) 17.2 mg Q12H PRN PO 04/24/17 12:30 (Dulcolax Supp) 10 mg DAILY PRN RECTAL 04/24/17 12:30 (Lactulose Liq) 30 ml DAILY PRN PO 04/24/17 12:30 Propofol 100 ml @ 0 mls/hr TITRATE PRN IV 04/24/17 12:30 UNV (Peridex 0.12% Liq) 15 ml BID@08,20 MT 04/24/17 20:00 Physical Exam Vital Signs Vital Signs Date Time Temp Pulse Resp B/P (MAP) Pulse Ox O2 Delivery O2 Flow Rate FiO2 04/24/17 12:48 87 16 97/63 (74) 100 Ventilator 04/24/17 12:30 81 16 138/71 (93) 100 Ventilator 100 04/24/17 12:18 120 170/119 04/24/17 12:07 100 80 04/24/17 11:44 112 16 166/88 (114) 100 Ventilator 100 04/24/17 11:30 100 04/24/17 11:30 100 100 04/24/17 11:20 97 04/24/17 11:20 97 Nasal Cannula 2.00 04/24/17 11:20 98.3 133 20 170/119 (136) 97 Physical Exam SBP 175, P 130s irregular, Resp 22, Sats 100% Head: Fresh blood in mouth. Neck: Chronically stiff. Orally intubated. Lungs: Diffuse rhonchi, few crackles. Good air movement. Heart: Irreg Irreg, S3 heard. ++JVD. Abdomen: Soft, large, BS active. Extremities; Generalized LE edema, well perfused. Neuro: Pupils 2 mm, quickly reactive. Cough intact. Toes up bilaterally. Moves both feet to stimulation, moves left arm. Laboratory Laboratory Tests Test 04/24/17 11:18 White Blood Count 11.4 Red Blood Count 3.39 Hemoglobin 10.6 Bedside Hemoglobin 10.2 Hematocrit 31.9 Bedside Hematocrit 30.0 Mean Corpuscular Volume 94.1 Mean Corpuscular Hemoglobin 31.2 Mean Corpuscular Hemoglobin Concent 33.1 Red Cell Distribution Width 14.7 Platelet Count 183 Mean Platelet Volume 8.0 Neutrophils (%) (Auto) 62.7 Lymphocytes (%) (Auto) 23.6 Monocytes (%) (Auto) 12.9 Eosinophils (%) (Auto) 0.6 Basophils (%) (Auto) 0.2 Neutrophils # (Auto) 7.1 Lymphocytes # (Auto) 2.7 Monocytes # (Auto) 1.5 Eosinophils # (Auto) 0.1 Basophils # (Auto) 0.0 CBC Comment DIFF FINAL Differential Comment Prothrombin Time 10.7 Prothromb Time International Ratio 1.1 Activated Partial Thromboplast Time 20.4 Fibrinogen 328 Bedside Sodium 141 Bedside Potassium 4.3 Bedside Chloride 109 Bedside Blood Urea Nitrogen 50 Bedside Creatinine 3.1 Bedside Glucose 95 Total Creatine Kinase 34 Troponin I LESS THAN 0.02 Result Diagram: 04/24/17 1118 Caprini VTE Risk Assessment Caprini VTE Risk Assessment: Mod/High Risk (score >= 2) Caprini Risk Assessment Model Point Value = 1 Point Value = 2 Point Value = 3 Point Value = 5 Age 41-60 Minor surgery BMI > 25 kg/m2 Swollen legs Varicose veins or History of unexplained or recurrent spontaneous Oral contraceptives or hormone replacement Sepsis (< 1 month) Serious lung disease, including pneumonia (< 1 month) Abnormal pulmonary function Acute myocardial infarction Congestive heart failure (< 1 month) History of inflammatory bowel disease Medical patient at bed rest Age 61-74 Arthroscopic surgery Major open surgery (> 45 min) Laparoscopic surgery (> 45 min) Malignancy Confined to bed (> 72 hours) Immobilizing plaster cast Central venous access Age >= 75 History of VTE Family history of VTE Factor V Leiden Prothrombin [id number] Lupus anticoagulant Anticardiolipin antibodies Elevated serum homocysteine Heparin-induced thrombocytopenia Other congenital or acquired thrombophilia Stroke (< 1 month) Elective arthroplasty Hip, pelvis, or leg fracture Acute spinal cord injury (< 1 month) Prophylaxis Regimen Total Risk Factor Score Risk Level Prophylaxis Regimen 0-1 Low Early ambulation 2 Moderate Order ONE of the following: *Sequential Compression Device (SCD) *Heparin 5000 units SQ BID 3-4 Higher Order ONE of the following medications: *Heparin 5000 units SQ TID *Enoxaparin/Lovenox 40 mg SQ daily (WT < 150 kg, CrCl > 30 mL/min) *Enoxaparin/Lovenox 30 mg SQ daily (WT < 150 kg, CrCl > 10-29 mL/min) *Enoxaparin/Lovenox 30 mg SQ BID (WT < 150 kg, CrCl > 30 mL/min) AND/OR *Sequential Compression Device (SCD) 5 or more Highest Order ONE of the following medications: *Heparin 5000 units SQ TID (Preferred with Epidurals) *Enoxaparin/Lovenox 40 mg SQ daily (WT < 150 kg, CrCl > 30 mL/min) *Enoxaparin/Lovenox 30 mg SQ daily (WT < 150 kg, CrCl > 10-29 mL/min) *Enoxaparin/Lovenox 30 mg SQ BID (WT < 150 kg, CrCl > 30 mL/min) AND *Sequential Compression Device (SCD) Assessment and Plan Problem List: (1) Acute ischemic left MCA stroke ICD Code: I63.512 - Cerebral infarction due to unspecified occlusion or stenosis of left middle cerebral artery Status: Acute (2) Hypertensive urgency ICD Code: I16.0 - Hypertensive urgency Status: Acute (3) Aphasia ICD Code: R47.01 - Aphasia Status: Acute (4) Chronic renal disease, stage 3, moderately decreased glomerular filtration rate (GFR) between 30-59 mL/min/1.73 square meter ICD Code: N18.3 - Chronic kidney disease, stage 3 (moderate) Status: Chronic (5) Afib ICD Code: I48.91 - Unspecified atrial fibrillation Status: Chronic Assessment and Plan Plan: 1. tPA protocol. 2. Maintain SBP < 180. 3. Neuro checks. 4. PRVC vent mode, PEEP 5. 5. Hold chemical DVT px. 6. Pepcid. 7. PT, OT eval. 8. Continue diuretics. 9. RFTs daily. 10. Continue lopressor for rate control. 11. ECHO, cardiac 12. Repeat Head CT after 24 hours. 13. SSI for euglycemia. 14. Watch closely for ongoing oral bleeding. Overall impression: Critically ill with acute MCA ischemic stroke. Care is further complicated by poorly compensated chronic systolic heart failure, chronic kidney disease, and diabetes. I am unable to wean him from the ventilator and he remains unstable. Critical Care 44 mins Problem Qualifiers (1) Afib: Qualified Codes: I48.0 - Paroxysmal atrial fibrillation Cecilio Brewer MD Apr 24, 2017 14:39
[2017-04-24 14:43] LABS: CHOLESTEROL/ HDL RATIO 3.85 RATIO; HDL CHOLESTEROL 31.4 MG/DL (40.0-60.0)
--- NOTE | 2017-04-24 14:50 | RADRPT ---
EXAM DATE/TIME: 04/24/2017 12:40 [facility] COMPARISON: CT BRAIN W/O CONTRAST, February 13, 2016, 19:24. INDICATIONS : Stroke alert. 86-year-old male with history of CVA within TPA window and severe azotemia. TPA infu dany has been initiated MRI exam is being performed to evaluate for large vessel occlusion. MEDICAL HISTORY : Hypertension. Carcinoma, prostate. SURGICAL HISTORY : CABG Bladder surgery. ENCOUNTER: Initial ACUITY: 1 day PAIN SCORE: Nonresponsive. LOCATION: head Please note a normal MRA of the brain does not entirely exclude the possibility of a small aneurysm, nor the possibility of distal intracranial vessel disease. TECHNIQUE: 3D time of flight MRA was performed. Source images, multiplanar STS MIP, and 3D volume MIP reconstru ctions were reviewed. FINDINGS: Anterior circulation: Distal intracranial internal carotid arteries are patent with flow extending to the middle and anteri or cerebral arteries. There is occlusion of the proximal left M1 segment. Slight asymmetrical small c aliber right A1 segment, likely congenital. Right MCA branches are patent. There is a 9 x 5 x 7 mm sa ccular aneurysm arising from the right carotid terminus projecting superiorly and medially Posterior circulation: Diminished signal in the distal right vertebral artery. There is no evidence for aneurysm, vessel silverio ncation or stenosis, and no evidence for vascular malformation. Diffusion sequences were also performed as a part of this procedure. There is extensive restricted di ffusion throughout the left cerebral hemisphere corresponding to large MCA territory ischemia. CONCLUSION: 1. Occlusion of the left M1 segment with severe restricted diffusion throughout the left cerebral hem isphere corresponding to large MCA territory ischemia. 2. 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 Tae Cordero MD on April 24, 2017 at 13:09 Board Certified Radiologist. This report was verified electronically.
--- NOTE | 2017-04-24 14:51 | PD.RAD ---
Post Procedure Progress Note Pre Procedure Diagnosis: (1) Afib (2) Acute ischemic left MCA stroke Post Procedure Diagnosis: (1) Afib (2) Acute ischemic left MCA stroke Procedure Date: Apr 24, 2017 Supervising Radiologist: Tae Cordero Proceduralist/Assist: Mickey Mix, RT(R), RT Chata(R)() Anesthesia: Conscious Sedation Plan of Activity Patient to Unit: ROPU Patient Condition: Good See PACS Report for procedural detail/treatment Tae Cordero MD Apr 24, 2017 14:51
--- NOTE | 2017-04-24 15:36 | RADRPT ---
EXAM DATE/TIME: 04/24/2017 00:00 [facility] COMPARISON: MRA BRAIN W/O CONTRAST, April 24, 2017, 12:40. INDICATIONS : Stroke alert. Left M1 segment occlusion with time of onset approximately 2.5 hours ago. Patient has s evere azotemia and MRA examination was performed demonstrating left M1 segment occlusion. MEDICAL HISTORY : 1.Bladder cancer 2. CAD 3. DM 4. HTN 5.Arthritis SURGICAL HISTORY : 1. Apendectomy 2. Cardiac surgery 3. CHolecystectomy 4. CABG x7 5. cystectomy ENCOUNTER: Initial ACUITY: 1 day PAIN SCORE: Nonresponsive. FLUORO TIME: 19.4 minutes IMAGE SERIES: 5 ACCESS SITE: Right Femoral artery CONTRAST: 30 cc Visipaque (iodixanol) DEVICE(S): 1.) Left middle cerebral artery TADEO 68 mechanical thrombectomy 2.) Right common femoral artery 6FR Angio-Seal TIMELINE: Interventional team called: [place] Interventional team arrived: NA Interventional team ready: 1300 pm Patient arrival: 1306 pm Groin puncture: 1316 pm Recanalization: 1403 pm PROCEDURE : 1. Ultrasound-guided puncture of the access site. 2. Conscious sedation with continuous EKG and Oximetry monitoring. 3. Selective catheter placement in the left internal carotid artery with cerebral angiography 4. Pnumbra suction thrombectomy of left M1 segment 5. Angio-Seal vascular closure right common femoral artery access site The risks, benefits and alternatives to the procedure were explained and verbal and written consent w as obtained. The site was prepped in sterile fashion. Full sterile technique was used, including ca p, mask, sterile gloves and gown and a large sterile sheet. Hand hygiene and 2% chlorhexidine and/or betadine/alcohol prep was utilized per protocol for cutaneous antisepsis. Sterile gel and sterile p robe cover were utilized for ultrasound guidance. The skin and subcutaneous tissues were infiltrated with local anesthetic solution. With ultrasound and fluoroscopic guidance the selected artery was punctured and a vascular sheath was placed. The patient has a bovine arch and required multiple catheter and wire selection to cannulate the left carotid artery. Subsequently, an 8 English NeuronMax sheath was placed in the origin of the left internal carotid artery. Cerebral angiography was performed confirming occlusion of the left M1 segment. An Tadeo 68 catheter and Marksman Microcatheter were then advanced through the sheath. The cyndie rocatheter was advanced into the left M2 segment and the Tadeo 68 catheter was advanced to the face of the thrombus. Suction was performed for 2 minutes and the catheter was retrieved. A 5 mm organized th rombus was retrieved. Followup angiography demonstrated TICI 3 recannulization although sheath access was lost following the first post cerebral angiogram. Reattempt access for angiography was not perfo rmed given patient's severe azotemia precluding more contrast injection and apparent TICI 3 revascula rization. Sheath was then removed and hemostasis obtained at the puncture site with Angio-Seal device . Conscious sedation was performed with the prescribed dosages and duration as above in the presence of an independent trained radiology nurse to assist in the monitoring of the patient. EKG and oximetry remained stable throughout the procedure. CONCLUSION: 1. Cerebral angiography confirms left M1 segment occlusion. 2. TICI-3 revascularization following single pass suction thrombectomy. Tae Cordero MD on April 24, 2017 at 15:20 Board Certified Radiologist. This report was verified electronically.
[2017-04-24] MEDS: INSULIN NovoLIN REGULAR SUPPLEMENTAL SCALE SQ SCH ×2 (16:00→22:00)
[2017-04-24] MEDS ORDERED: NOREPINEPHRINE INJ 4 MG in SODIUM CHLOR 0.9% 250 ML INJ 246 ML IV PRN ×2 (16:15→17:45)
[2017-04-24] MEDS ORDERED: SODIUM CHLORID 0.9% 500 ML INJ 500 ML IV ONE (16:15)
[2017-04-24] MEDS ORDERED: TERBUTALINE INJ 1 MG/ML AMP SQ PRN ×3 (16:15→17:45)
[2017-04-24 16:32] LABS: BACTERIA, URINE OCC /hpf; BILIRUBIN, URINE NEG (NEG); BLOOD, URINE SMALL (NEG); GLUCOSE,URINE NEG (NEG); KETONE, URINE NEG (NEG); NITRITE,URINE NEG (NEG); URINE COLOR YELLOW (YELLW/STRAW); URINE LEUKOCYTE ESTERASE LARGE (NEG); WHITE BLOOD CELL CLUMPS MOD
[2017-04-24] MEDS: MIDAZOLAM 100 MG/100 ML INJ 100 ML IV PRN (16:52)
[2017-04-24] MEDS ORDERED: METOPROLOL TARTRATE 5 MG/5 ML VIAL IV PUSH ONE (17:00)
[2017-04-24] MEDS: SODIUM CHLOR 0.9% 1000 ML INJ 1,000 ML IV SCH (17:14)
[2017-04-24] MEDS ORDERED: CHLORHEXIDINE 0.12% (ORAL KIT) 15 ML CUP MT SCH (20:00)
[2017-04-24] MEDS ORDERED: METOPROLOL TARTRATE 50 MG TAB PO SCH (21:00)
[2017-04-24] MEDS ORDERED: DOCUSATE SODIUM 50 MG/SENNA 8.6 MG TAB PO SCH (21:00)
[2017-04-24] MEDS ORDERED: FAMOTIDINE 20 MG/2 ML VIAL IV PUSH SCH (21:00)
[2017-04-24] MEDS: DILTIAZEM HCL 60 MG TAB PO SCH (21:36)
[2017-04-25] VITALS (11 sets, daily range): BP systolic 99–142; BP diastolic 56–77; PULSE 61–110; RESP 16–30; TEMP 97.5–98.6; O2SAT 100
[2017-04-25] MEDS: DILTIAZEM HCL 60 MG TAB PO SCH ×2 (00:11→05:41)
[2017-04-25] MEDS ORDERED: CHLORHEXIDINE GLUCONATE 2 % 1 PACK (2 CLOTHS) TOP SCH (04:00)
[2017-04-25] MEDS: INSULIN NovoLIN REGULAR SUPPLEMENTAL SCALE SQ SCH (04:00)
[2017-04-25] MEDS: MIDAZOLAM 100 MG/100 ML INJ 100 ML IV PRN (04:23)
[2017-04-25] MEDS: SODIUM CHLOR 0.9% 1000 ML INJ 1,000 ML IV SCH (04:25)
[2017-04-25 05:34] LABS: ALBUMIN 2.9 GM/DL (3.4-5.0); BICARBONATE 18.4 MEQ/L (21.0-32.0); CALCIUM 7.8 MG/DL (8.5-10.1); CREATININE 3.38 MG/DL (0.60-1.30)
[2017-04-25] MEDS ORDERED: FUROSEMIDE 80 MG TAB PO SCH (09:00)
[2017-04-25] MEDS ORDERED: ATORVASTATIN 40 MG TAB PO SCH (09:00)
--- NOTE | 2017-04-25 10:11 | HHI.PR ---
Review/Management Diagnosis/Plan: (1) Acute ischemic left MCA stroke ICD Codes: I63.512 - Cerebral infarction due to unspecified occlusion or stenosis of left middle cerebral artery Status: Acute Plan: left mca stroke. s/p iv tpa and IR with left mca clot removal large area of restricted diffusion on mri probably cardioembolic from afib. not on OAC 2/2 anemia, hx of gib recs decline in exam. concern for ICH, swelling, shift d/w pt's spouse, daughter -in -law. repeat ct brain. possible hospice. they understand (2) Afib ICD Codes: I48.91 - Unspecified atrial fibrillation Status: Chronic (3) Anemia ICD Codes: D64.9 - Anemia, unspecified Status: Chronic (4) CHF (congestive heart failure) ICD Codes: I50.9 - Heart failure, unspecified Status: Acute (5) Acute renal failure ICD Codes: N17.9 - Acute kidney failure, unspecified Status: Acute Subjective Subjective Comments No acute events reported Active Medications Current Medications Medications (Trade) Dose Ordered Sig/Melanie Route Start Time Stop Time Status Last Admin Miscellaneous Information No Heparin, Warfarin, Aspir... UNSCH PRN XX 04/24/17 12:15 04/25/17 12:14 (Lipitor) 40 mg DAILY PO 04/25/17 09:00 (Lasix) 80 mg DAILY PO 04/25/17 09:00 (Lopressor) 50 mg BID PO 04/24/17 21:00 04/24/17 21:37 Sodium Chloride 1,000 ml @ 75 mls/hr [id number] IV 04/24/17 12:45 04/25/17 04:25 (Tylenol) 650 mg Q6H PRN PO 04/24/17 12:30 (Morphine Inj) 2 mg Q2H PRN IV PUSH 04/24/17 13:00 (Pepcid Inj) 20 mg Q12HR IV PUSH 04/24/17 21:00 04/24/17 21:00 (Zofran Inj) 4 mg Q6H PRN IV PUSH 04/24/17 12:30 (Duoneb Neb) 1 ampule Q4HR NEB PRN INH 04/24/17 12:30 Miscellaneous Information 1 Q361D XX 04/24/17 12:30 (Chlorhexidine 2% Cloth) 3 pack Taper DAILY@04 TOP 04/25/17 04:00 04/21/18 03:59 (Chlorhexidine 2% Cloth) 3 pack UNSCH PRN TOP 04/24/17 12:30 (Melissa-Colace) 1 tab BID PO 04/24/17 21:00 (Milk Of Magnesia Liq) 30 ml Q12H PRN PO 04/24/17 12:30 (Senokot) 17.2 mg Q12H PRN PO 04/24/17 12:30 (Dulcolax Supp) 10 mg DAILY PRN RECTAL 04/24/17 12:30 (Lactulose Liq) 30 ml DAILY PRN PO 04/24/17 12:30 (Peridex 0.12% Liq) 15 ml BID@08,20 MT 04/24/17 20:00 04/24/17 20:00 Propofol 100 ml @ 2.799 mls/ hr TITRATE PRN IV 04/24/17 14:15 (NovoLIN R SUPPLEMENTAL SCALE) 1 Q6H SQ 04/24/17 16:00 04/25/17 04:00 Midazolam HCl 100 ml @ 2 mls/hr TITRATE PRN IV 04/24/17 16:15 04/25/17 04:23 (fentaNYL INJ) 25 mcg Q1HR NEB PRN IV PUSH 04/24/17 16:15 04/24/17 16:53 (Brethine Inj) 1 mg UNSCH PRN SQ 04/24/17 16:45 Norepinephrine Bitartrate 4 mg/ Sodium Chloride 250 ml @ 7.5 mls/hr TITRATE PRN IV 04/24/17 17:45 (Brethine Inj) 1 mg UNSCH PRN SQ 04/24/17 17:45 (Cardizem) 60 mg Q6HR PO 04/24/17 19:00 04/25/17 00:11 Allergies Allergies Coded Allergies No Known Allergies (Verified Allergy, Unknown, 04/24/17) Review of Systems All other ROS: Unable to obtain Exam I&O / VS Vital Signs Date Time Temp Pulse Resp B/P (MAP) Pulse Ox O2 Delivery O2 Flow Rate FiO2 04/25/17 08:00 Mechanical Ventilator 50 04/25/17 08:00 97.5 81 17 132/66 (88) 100 04/25/17 08:00 61 04/25/17 08:00 50 04/25/17 07:56 100 50 04/25/17 06:00 104 04/25/17 04:20 100 50 04/25/17 04:00 98.2 104 16 99/56 (70) 100 04/25/17 04:00 104 04/25/17 02:00 110 04/25/17 01:21 100 65 04/25/17 00:00 65 04/25/17 00:00 110 04/25/17 00:00 98.6 110 30 142/77 (98) 100 04/24/17 22:00 124 04/24/17 21:13 100 70 04/24/17 20:00 98.5 117 28 126/79 (95) 100 04/24/17 20:00 120 04/24/17 19:00 Mechanical Ventilator 75 04/24/17 18:00 109 04/24/17 17:53 22 04/24/17 16:54 100 75 04/24/17 16:00 128 04/24/17 16:00 97.6 128 30 116/58 (77) 100 04/24/17 16:00 100 04/24/17 15:00 136 04/24/17 12:48 87 16 97/63 (74) 100 Ventilator 04/24/17 12:30 81 16 138/71 (93) 100 Ventilator 100 04/24/17 12:18 120 170/119 04/24/17 12:07 100 80 04/24/17 11:44 112 16 166/88 (114) 100 Ventilator 100 04/24/17 11:30 100 04/24/17 11:30 100 100 04/24/17 11:20 97 04/24/17 11:20 97 Nasal Cannula 2.00 04/24/17 11:20 98.3 133 20 170/119 (136) 97 Exam Comments intubated, sedation taken taken off, ou 4.5mm fixed, no corneals, not following , no verbal, no ext movement Objective Micro and Labs Laboratory Tests Test 04/24/17 11:18 04/24/17 15:30 04/25/17 04:48 White Blood Count 11.4 Red Blood Count 3.39 Hemoglobin 10.6 Bedside Hemoglobin 10.2 Hematocrit 31.9 Bedside Hematocrit 30.0 Mean Corpuscular Volume 94.1 Mean Corpuscular Hemoglobin 31.2 Mean Corpuscular Hemoglobin Concent 33.1 Red Cell Distribution Width 14.7 Platelet Count 183 Mean Platelet Volume 8.0 Neutrophils (%) (Auto) 62.7 Lymphocytes (%) (Auto) 23.6 Monocytes (%) (Auto) 12.9 Eosinophils (%) (Auto) 0.6 Basophils (%) (Auto) 0.2 Neutrophils # (Auto) 7.1 Lymphocytes # (Auto) 2.7 Monocytes # (Auto) 1.5 Eosinophils # (Auto) 0.1 Basophils # (Auto) 0.0 CBC Comment DIFF FINAL Differential Comment Prothrombin Time 10.7 Prothromb Time International Ratio 1.1 Activated Partial Thromboplast Time 20.4 Fibrinogen 328 Bedside Sodium 141 Bedside Potassium 4.3 Bedside Chloride 109 Bedside Blood Urea Nitrogen 50 Bedside Creatinine 3.1 Bedside Glucose 95 Total Creatine Kinase 34 Troponin I LESS THAN 0.02 B-Type Natriuretic Peptide 1199 Triglycerides Level 121 Cholesterol Level 121 LDL Cholesterol 65 HDL Cholesterol 31.4 Cholesterol/HDL Ratio 3.85 Thyroid Stimulating Hormone 3rd Gen 1.330 Urine Color YELLOW Urine Turbidity HAZY Urine pH 6.0 Urine Specific [place] 1.014 Urine Protein 100 Urine Glucose (UA) NEG Urine Ketones NEG Urine Occult Blood SMALL Urine Nitrite NEG Urine Bilirubin NEG Urine Urobilinogen LESS THAN 2.0 Urine Leukocyte Esterase LARGE Urine RBC 10 Urine WBC Urine WBC Clumps MOD Urine Bacteria OCC Urine Opiates Screen NEG Urine Barbiturates Screen NEG Urine Amphetamines Screen NEG Urine Benzodiazepines Screen NEG Urine Cocaine Screen NEG Urine Cannabinoids Screen NEG Blood Urea Nitrogen 57 Creatinine 3.38 Random Glucose 280 Albumin 2.9 Calcium Level 7.8 Phosphorus Level 4.0 Sodium Level 141 Potassium Level 5.2 Chloride Level 112 Carbon Dioxide Level 18.4 Anion Gap 11 Estimat Glomerular Filtration Rate 17 Problem Qualifiers (1) Afib: Qualified Codes: I48.0 - Paroxysmal atrial fibrillation Missael Sewell MD Apr 25, 2017 10:11
--- NOTE | 2017-04-25 10:22 | HHI.CCPN ---
Subjective Remarks/Hospital Course Service Critical Care Medicine Primary Care Physician Nathan Reyes III, Admission Diagnosis stroke alert, CVA, aphasia, chronic renal failure Diagnosis: (1) Acute ischemic left MCA stroke Diagnosis: Principal (2) Aphasia Diagnosis: Principal (3) Hypertensive urgency Diagnosis: Principal (4) Afib Diagnosis: Secondary (5) Chronic renal disease, stage 3, moderately decreased glomerular filtration rate (GFR) between 30-59 mL/min/1.73 square meter Diagnosis: Secondary (6) Type 2 diabetes mellitus Diagnosis: Secondary 86 y/o right handed man developed aphasia and right side weakness early today. Came to ED where CT head revealed probable right MCA ischemic stroke. Longstanding history of a-fib, systolic heart failure, hypertension. 04/25: Received tPA for large area ischemic stroke. Now with decreased LOC, concern for bleed. Urgent CT head. Exacerbated heart failure is complicating care. Objective Vital Signs Date Time Temp Pulse Resp B/P (MAP) Pulse Ox O2 Delivery O2 Flow Rate FiO2 04/25/17 10:00 77 04/25/17 08:00 Mechanical Ventilator 50 04/25/17 08:00 97.5 17 132/66 (88) 100 04/24/17 11:20 2.00 Intake and Output 04/25/17 04/25/17 04/26/17 08:00 16:00 00:00 Output Total 1100 ml Balance -1100 ml Result Diagram: 04/24/17 1118 04/25/17 0448 Objective Remarks SBP 138, P 110s irregular, Resp 22, Sats 100% Head: Atraumatic. Neck: Chronically stiff. Orally intubated. Lungs: Diffuse rhonchi, few crackles in bases. Good air movement. Heart: Irreg Irreg, S3 heard. ++JVD. Abdomen: Soft, large, BS active. No guarding. Extremities; Generalized LE edema, well perfused. Neuro: Pupils 3 mm, slowly reactive. Cough intact. Toes neutral. Unresponsive. A/P Problem List: (1) Acute ischemic left MCA stroke ICD Code: I63.512 - Cerebral infarction due to unspecified occlusion or stenosis of left middle cerebral artery Status: Acute (2) Hypertensive urgency ICD Code: I16.0 - Hypertensive urgency Status: Acute (3) Aphasia ICD Code: R47.01 - Aphasia Status: Acute (4) Chronic renal disease, stage 3, moderately decreased glomerular filtration rate (GFR) between 30-59 mL/min/1.73 square meter ICD Code: N18.3 - Chronic kidney disease, stage 3 (moderate) Status: Chronic (5) Afib ICD Code: I48.91 - Unspecified atrial fibrillation Status: Chronic Assessment and Plan Plan: 1. tPA protocol. 2. Maintain SBP < 180. 3. Neuro checks. 4. PRVC vent mode, PEEP 5. 5. Hold chemical DVT px. 6. Pepcid. 7. PT, OT eval. 8. Continue diuretics. 9. RFTs daily. 10. Continue lopressor for rate control. 11. ECHO, cardiac 12. Repeat Head CT after 24 hours. 13. SSI for euglycemia. 14. Watch closely for ongoing oral bleeding -> stopped. 15. Incresae diuretics iv. 16. Stat head CT. Overall impression: Critically ill with acute MCA ischemic stroke. Care is further complicated by decompensated chronic systolic heart failure, chronic kidney disease, and diabetes. I am unable to wean him from the ventilator and he remains unstable. Prognosis poor. Update: Recent head CT demonstrates hemorrhagic conversion of most of left hemisphere (dominant in him). He will not recover. Family is adamant for extubation and natural . All 8 at the bedside are in agreement. POA for healthcare is in agreement by phone. We will comply with their request as he has no possibility of meaningful recovery. Critical Care 39 mins Problem Qualifiers (1) Afib: Qualified Codes: I48.0 - Paroxysmal atrial fibrillation Cecilio Brewer MD Apr 25, 2017 10:22
[2017-04-25] MEDS ORDERED: FUROSEMIDE 100 MG/10 ML VIAL IV PUSH ONE (10:30)
--- NOTE | 2017-04-25 11:06 | RADRPT ---
EXAM DATE/TIME: 04/25/2017 10:52 [place] COMPARISON: CT BRAIN W/O CONTRAST, April 24, 2017, 11:38. INDICATIONS : Altered mental status, unresponsive. RADIATION DOSE: 62.32 CTDIvol (mGy) MEDICAL HISTORY : Carcinoma, bladder. Hypertension. SURGICAL HISTORY : CABG ENCOUNTER: Initial ACUITY: 1 day PAIN SCALE: Non-responsive LOCATION: Bilateral head TECHNIQUE: Multiple contiguous axial images were obtained of the head. Using automated exposure control and adj ustment of the mA and/or kV according to patient size, radiation dose was kept as low as reasonably a chievable to obtain optimal diagnostic quality images. DICOM format image data is available electro nically for review and comparison. FINDINGS: CEREBRUM: This is a severely abnormal exam with extensive areas of hemorrhage and low-attenuation involving the left parietal, parietal frontal junction and extending into the left occipital lobe. There is efface ment of the left lateral ventricle and mild midline shift to the right. There is dilation of the righ t lateral ventricle with blood products identified within the dependent portion of the ventricle. Add itional areas of intraparenchymal hemorrhage are identified within the right occipital lobe. There is effacement of the fourth ventricle and midline shift to the right approximately 6 mm. POSTERIOR FOSSA: Effacement of the fourth ventricle with midline shift to the right approximately 6 mm. EXTRACRANIAL: The visualized portion of the orbits is intact. SKULL: The calvaria is intact. No evidence of skull fracture. CONCLUSION: Significantly abnormal exam with extensive hemorrhage identified throughout the left supratentorial brain and diffuse low attenuation involving the majority of the left hemisphere with r elative sparing of the left frontal lobe. There is effacement of the left lateral ventricle and mild midline shift to the right. Abnormal dilation of the right lateral ventricle with hemorrhagic blood p roducts. There is additional mass effect upon the posterior fossa with obscuration of the fourth vent ricle and shift of the midline to the right approximately 6 mm. Whit Love MD on April 25, 2017 at 11:00 Board Certified Radiologist. This report was verified electronically.
[2017-04-25] MEDS ORDERED: HYDROmorphone HCL PF 4 MG/ML VIAL IV PUSH PRN (12:00)
[2017-04-25] MEDS ORDERED: LORazepam 2 MG/ML VIAL IV PUSH PRN (12:00)
--- NOTE | 2017-04-25 12:37 | PD.CONS ---
HPI Service Neurosurgery Consult Requested By Dr rdz Reason for Consult Hemorrhagic stroke Primary Care Physician Nathan Reyes III, MD History of Present Illness This is an 86 y/o m last normal 1040 am today. brought to [facility] emergency room in as stroke alert, after noted pt to be confused. in er. noted to have left gaze deviation. He had right hemiplegia. He was not protecting his airway and needed airway protection and was intubated in the emergency room. Based on exam and symptoms flet pt had an acute stroke. He received intravenous TPA. The patient overnight night clinical condition deteriorated, to the point that he became completely unresponsive and developed pupils dilated and fixed. Follow-up CT of the brain show extensive hemorrhagic transformation in the left cerebral hemisphere with severe mass-effect midline shift and radiological evidence of herniation. Neurosurgical consultation was requested Review of Systems It is not possible due to his condition ROS Limitations: Clinical Condition, Altered Mental Status Past Family Social History Allergies: Coded Allergies: No Known Allergies (Verified Allergy, Unknown, 04/24/17) Past Medical History Anemia Arthritis Posttraumatic stress disorder Stage IV bladder cancer status post resection and chemotherapy Hypertension Hyperlipidemia Type 2 diabetes mellitus Atrial fibrillation EKG 01/08/2007 and 01/16/2007 Stage 3 CKD Past Surgical History Appendectomy Cholecystectomy Bladder cancer with ostomy Cataract surgery Active Ordered Medications Current Medications Etomidate (Amidate Inj) 40 mg STK-MED ONCE .ROUTE ; Start 04/24/17 at 11:23; Stop 04/24/17 at 11:24; Status DC Propofol 50 ml @ As Directed STK-MED ONCE .ROUTE ; Start 04/24/17 at 11:23; Stop 04/24/17 at 11:24; Status DC Rocuronium Sparta (Zemuron Inj) 100 mg STK-MED ONCE .ROUTE ; Start 04/24/17 at 11:24; Stop 04/24/17 at 11:25; Status DC Sodium Chloride 1,000 ml @ 70 mls/hr [id number] ONCE IV Last administered on 04/24at 12:19; Start 04/24/17 at 11:29; Stop 04/25/17 at 01:46; Status DC Propofol 50 ml @ As Directed STK-MED ONCE .ROUTE ; Start 04/24/17 at 11:31; Stop 04/24/17 at 11:32; Status DC Nicardipine HCl (Cardene Inj) 25 mg STK-MED ONCE .ROUTE ; Start 04/24/17 at 12: 03; Stop 04/24/17 at 12:04; Status DC Nicardipine HCl 25 mg/Sodium Chloride 250 ml @ 0 mls/hr TITRATE ONCE IV Last administered on 04/24/17at 12:18; Start 04/24/17 at 12:15; Stop 04/24/17 at 12:16 ; Status DC Alteplase, Recombinant (Activase Bolus) 8.4 mg ONCE ONCE IV Last administered on 04/24/17at 12:15; Start 04/24/17 at 12:15; Stop 04/24/17 at 12:16; Status DC Alteplase, Recombinant 75.5 mg/Syringe / Bag 75.5 ml @ 75.5 mls/hr ONCE ONCE IV Last administered on 04/24/17at 12:17; Start 04/24/17 at 12:15; Stop at 13:14; Status DC Sodium Chloride (NS Inj) 30 ml ONCE ONCE IVF Last administered on 04/24/17at 13 :54; Start 04/24/17 at 12:15; Stop 04/24/17 at 12:16; Status DC Miscellaneous Information No Heparin, Warfarin, Aspir... UNSCH PRN XX SEE DOSE INSTRUCTIONS; Start 04/24/17 at 12:15; Stop 04/25/17 at 12:14; Status DC Diltiazem HCl (Cardizem Inj) 15 mg ONCE ONCE IV Last administered on at 12:19; Start 04/24/17 at 12:15; Stop 04/24/17 at 12:16; Status DC Diltiazem HCl (Cardizem Inj) 50 mg STK-MED ONCE .ROUTE ; Start 04/24/17 at 12:16 ; Stop 04/24/17 at 12:17; Status DC Atorvastatin Calcium (Lipitor) 40 mg DAILY PO ; Start 04/25/17 at 09:00 Furosemide (Lasix) 80 mg DAILY PO ; Start 04/25/17 at 09:00 Metoprolol Tartrate (Lopressor) 50 mg BID PO Last administered on 04/24/17at 21: 37; Start 04/24/17 at 21:00 Sodium Chloride 1,000 ml @ 75 mls/hr [id number] IV Last administered on at 04:25; Start 04/24/17 at 12:45 Acetaminophen (Tylenol) 650 mg Q6H PRN PO PAIN 1-10 AND/OR FEVER >101F; Start 04/24/17 at 12:30 Morphine Sulfate (Morphine Inj) 2 mg Q2H PRN IV PUSH PAIN SCALE 6 TO 10; Start 04/24/17 at 13:00 Famotidine (Pepcid Inj) 20 mg Q12HR IV PUSH Last administered on 04/24/17at 21: 00; Start 04/24/17 at 21:00; Stop 04/25/17 at 11:50; Status DC Ondansetron HCl (Zofran Inj) 4 mg Q6H PRN IV PUSH NAUSEA OR VOMITING; Start at 12:30 Albuterol/ Ipratropium (Duoneb Neb) 1 ampule Q4HR NEB PRN INH WHEEZING; Start 04/24/17 at 12:30 Miscellaneous Information 1 Q361D XX ; Start 04/24/17 at 12:30 Chlorhexidine Gluconate (Chlorhexidine 2% Cloth) 3 pack Taper DAILY@04 TOP ; Start 04/25/17 at 04:00; Stop 04/21/18 at 03:59 Chlorhexidine Gluconate (Chlorhexidine 2% Cloth) 3 pack UNSCH PRN TOP HYGIENIC CARE; Start 04/24/17 at 12:30 Senna/Docusate Sodium (Melissa-Colace) 1 tab BID PO ; Start 04/24/17 at 21:00 Magnesium Hydroxide (Milk Of Magnesia Liq) 30 ml Q12H PRN PO Mild constipation ; Start 04/24/17 at 12:30 Sennosides (Senokot) 17.2 mg Q12H PRN PO Moderate constipation; Start 04/24/17 at 12:30 Bisacodyl (Dulcolax Supp) 10 mg DAILY PRN RECTAL SEVERE CONSITIPATION; Start at 12:30 Lactulose (Lactulose Liq) 30 ml DAILY PRN PO SEVERE CONSITIPATION; Start at 12:30 Propofol 100 ml @ 0 mls/hr TITRATE PRN IV SEDATION; Start 04/24/17 at 12:30; Status UNV Chlorhexidine Gluconate (Peridex 0.12% Liq) 15 ml BID@08,20 MT Last administered on 04/24/17at 20:00; Start 04/24/17 at 20:00 Verapamil HCl (Isoptin Inj) 10 mg STK-MED ONCE .ROUTE ; Start 04/24/17 at 13:04 ; Stop 04/24/17 at 13:05; Status DC Etomidate (Amidate Inj) 20 mg ONCE ONCE IV PUSH Last administered on at 11:28; Start 04/24/17 at 13:45; Stop 04/24/17 at 13:46; Status DC Rocuronium Sparta (Zemuron Inj) 100 mg BOLUS ONCE IV ; Start 04/24/17 at 13:45 ; Stop 04/24/17 at 13:46; Status Cancel Propofol 100 ml @ 0 mls/hr TITRATE PRN IV SEDATION Last administered on at 13:56; Start 04/24/17 at 13:45; Stop 04/24/17 at 14:06; Status DC Rocuronium Sparta (Zemuron Inj) 100 mg BOLUS ONCE IV Last administered on at 11:28; Start 04/24/17 at 14:00; Stop 04/24/17 at 14:01; Status DC Propofol 100 ml @ 2.799 mls/ hr TITRATE PRN IV SEDATION; Start 04/24/17 at 14: 15 Cefazolin Sodium/ Dextrose 50 ml @ As Directed STK-MED ONCE .ROUTE ; Start 04/24 at 14:08; Stop 04/24/17 at 14:09; Status DC Miscellaneous Information (RASS Change Order) 1 ea ONCE ONCE XX ; Start at 14:15; Stop 04/24/17 at 14:16; Status DC Iodixanol (VISIPAQUE 320 INJ (Rad Spec)) 70 ml STK-MED ONCE I-ARTERIAL Last administered on 04/24/17at 14:35; Start 04/24/17 at 14:35; Stop 04/24/17 at 14:37 ; Status DC Insulin Human Regular (NovoLIN R SUPPLEMENTAL SCALE) 1 Q6H SQ Last administered on 04/25/17at 04:00; Start 04/24/17 at 16:00 Midazolam HCl 100 ml @ 2 mls/hr TITRATE PRN IV SEDATION Last administered on at 04:23; Start 04/24/17 at 16:15 Fentanyl Citrate (fentaNYL INJ) 25 mcg Q1HR NEB PRN IV PUSH Breakthrough pain Last administered on 04/24/17at 16:53; Start 04/24/17 at 16:15 Sodium Chloride 500 ml @ 500 mls/hr BOLUS ONCE IV Last administered on at 17:07; Start 04/24/17 at 16:15; Stop 04/24/17 at 17:14; Status DC Norepinephrine Bitartrate 4 mg/ Sodium Chloride 250 ml @ 7.5 mls/hr TITRATE PRN IV Blood pressure management; Start 04/24/17 at 16:15; Stop 04/24/17 at 16: 46; Status DC Terbutaline Sulfate (Brethine Inj) 1 mg UNSCH PRN SQ For Extravasation; Start 04/24/17 at 16:15; Stop 04/24/17 at 16:46; Status DC Terbutaline Sulfate (Brethine Inj) 1 mg UNSCH PRN SQ For Extravasation; Start 04/24/17 at 16:45; Stop 04/25/17 at 11:59; Status DC Metoprolol Tartrate (Lopressor Inj) 2.5 mg ONCE ONCE IV PUSH Last administered on 04/24/17at 17:08; Start 04/24/17 at 17:00; Stop 04/24/17 at 17:01 ; Status DC Norepinephrine Bitartrate 4 mg/ Sodium Chloride 250 ml @ 7.5 mls/hr TITRATE PRN IV Blood pressure management; Start 04/24/17 at 17:45 Terbutaline Sulfate (Brethine Inj) 1 mg UNSCH PRN SQ For Extravasation; Start 04/24/17 at 17:45 Diltiazem HCl (Cardizem) 60 mg Q6HR PO Last administered on 04/25/17at 00:11; Start 04/24/17 at 19:00 Furosemide (Lasix Inj) 80 mg ONCE ONCE IV PUSH ; Start 04/25/17 at 10:30; Stop 04/25/17 at 10:31; Status DC Famotidine (Pepcid Inj) 10 mg Q12HR IV PUSH ; Start 04/25/17 at 21:00 Lorazepam (Ativan Inj) 3 mg Q15M PRN IV PUSH any agitation; Start 04/25/17 at 12:00 Hydromorphone HCl (Dilaudid Pf Inj) 4 mg Q30M PRN IV PUSH any pain Last administered on 04/25/17at 12:09; Start 04/25/17 at 12:00 Family History His family history was reviewed and was noncontributory to this admission Social History Negative for tobacco use, alcohol abuse or illicit drug use Physical Exam Vital Signs Vital Signs Date Time Temp Pulse Resp B/P (MAP) Pulse Ox O2 Delivery O2 Flow Rate FiO2 04/25/17 10:00 77 04/25/17 08:00 Mechanical Ventilator 50 04/25/17 08:00 97.5 81 17 132/66 (88) 100 04/25/17 08:00 61 04/25/17 08:00 50 04/25/17 07:56 100 50 04/25/17 06:00 104 04/25/17 04:20 100 50 04/25/17 04:00 98.2 104 16 99/56 (70) 100 04/25/17 04:00 104 04/25/17 02:00 110 04/25/17 01:21 100 65 04/25/17 00:00 65 04/25/17 00:00 110 04/25/17 00:00 98.6 110 30 142/77 (98) 100 04/24/17 22:00 124 04/24/17 21:13 100 70 04/24/17 20:00 98.5 117 28 126/79 (95) 100 04/24/17 20:00 120 04/24/17 19:00 Mechanical Ventilator 75 04/24/17 18:00 109 04/24/17 17:53 22 04/24/17 16:54 100 75 04/24/17 16:00 128 04/24/17 16:00 97.6 128 30 116/58 (77) 100 04/24/17 16:00 100 04/24/17 15:00 136 04/24/17 12:48 87 16 97/63 (74) 100 Ventilator 3/16/18 12:30 81 16 138/71 (93) 100 Ventilator 100 Physical Exam The patient is intubated and sedated. GCS 3 Cranial Nerves: Pupils equal, round, reactive to light. Eyes appear conjugated. There was no nystagmus, no papilledema. Face musculature appeared symmetrical at rest. Face sensation, olfaction, visual sanders, and hearing cannot be adequately assessed due to his neurological condition. The patient has a corneal reflex. He has a gag reflex. The sternocleidomastoid and trapezius are symmetrical. Cervical Spine: His neck is soft, supple, without nuchal rigidity. Motor: There is no response to pain Sensory: On examination there is no response to painful stimuli Cerebellar: Examination cannot be adequately assessed due to the patient's neurological condition. Lungs are clear Heart regular rhythm and rate Skin warm and dry Laboratory Laboratory Tests Test 04/24/17 15:30 04/25/17 04:48 Urine Color YELLOW Urine Turbidity HAZY Urine pH 6.0 Urine Specific [place] 1.014 Urine Protein 100 Urine Glucose (UA) NEG Urine Ketones NEG Urine Occult Blood SMALL Urine Nitrite NEG Urine Bilirubin NEG Urine Urobilinogen LESS THAN 2.0 Urine Leukocyte Esterase LARGE Urine RBC 10 Urine WBC Urine WBC Clumps MOD Urine Bacteria OCC Urine Opiates Screen NEG Urine Barbiturates Screen NEG Urine Amphetamines Screen NEG Urine Benzodiazepines Screen NEG Urine Cocaine Screen NEG Urine Cannabinoids Screen NEG Blood Urea Nitrogen 57 Creatinine 3.38 Random Glucose 280 Albumin 2.9 Calcium Level 7.8 Phosphorus Level 4.0 Sodium Level 141 Potassium Level 5.2 Chloride Level 112 Carbon Dioxide Level 18.4 Anion Gap 11 Estimat Glomerular Filtration Rate 17 Result Diagram: 04/24/17 1118 04/25/17 0448 Imaging Last [address] 04/25/17 0000 Signed Impressions: Service Date/Time: Tuesday, April 25, 2017 10:52 - CONCLUSION: Significantly abnormal exam with extensive hemorrhage identified throughout the left supratentorial brain and diffuse low attenuation involving the majority of the left hemisphere with relative sparing of the left frontal lobe. There is effacement of the left lateral ventricle and mild midline shift to the right. Abnormal dilation of the right lateral ventricle with hemorrhagic blood products. There is additional mass effect upon the posterior fossa with obscuration of the fourth ventricle and shift of the midline to the right approximately 6 mm. Whit Love MD Head Magnetic Resonance Angiography 04/24/17 0000 Signed Impressions: Service Date/Time: Monday, April 24, 2017 12:40 - CONCLUSION: 1. Occlusion of the left M1 segment with severe restricted diffusion throughout the left cerebral hemisphere corresponding to large MCA territory ischemia. 2. 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 Tae Cordero MD Head CT 04/24/17 0000 Signed Impressions: Service Date/Time: Monday, April 24, 2017 11:38 - CONCLUSION: 1. Loss of guadalupe-white differentiation involving left temporal and parietal lobes suggesting probable acute left MCA infarct. Clinical correlation is recommended. 2. No acute hemorrhage. 3. Moderate periventricular and subcortical white matter small vessel ischemic changes bilaterally. 4. Old lacunar infarcts within the left caudate and cerebellar hemispheres bilaterally. 5. Stable calcified 12 mm density within the sella which may represent aneurysm. Jonh Cain MD Chest X-Ray 04/24/17 0000 Signed Impressions: Service Date/Time: Monday, April 24, 2017 12:24 - CONCLUSION: 1. Endotracheal tube in appropriate position with tip measuring 3.5 cm from the [place]in. 2. Atelectasis at the left lung base. No acute pulmonary abnormality is seen. Edward Monterroso MD Cerebral Angiography 04/24/17 0000 Signed Impressions: Service Date/Time: Monday, April 24, 2017 00:00 - CONCLUSION: 1. Cerebral angiography confirms left M1 segment occlusion. 2. TICI-3 revascularization following single pass suction thrombectomy. Tae Cordero MD Attending Statement I reviewed his radiological studies Head CT 04/25/17 0000 Signed Impressions: Service Date/Time: Tuesday, April 25, 2017 10:52 - CONCLUSION: Significantly abnormal exam with extensive hemorrhage identified throughout the left supratentorial brain and diffuse low attenuation involving the majority of the left hemisphere with relative sparing of the left frontal lobe. There is effacement of the left lateral ventricle and mild midline shift to the right. Abnormal dilation of the right lateral ventricle with hemorrhagic blood products. There is additional mass effect upon the posterior fossa with obscuration of the fourth ventricle and shift of the midline to the right approximately 6 mm. Whit Love MD Head Magnetic Resonance Angiography 04/24/17 0000 Signed Impressions: Service Date/Time: Monday, April 24, 2017 12:40 - CONCLUSION: 1. Occlusion of the left M1 segment with severe restricted diffusion throughout the left cerebral hemisphere corresponding to large MCA territory ischemia. 2. 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 Tea Cordero MD Head CT 04/24/17 0000 Signed Impressions: Service Date/Time: Monday, April 24, 2017 11:38 - CONCLUSION: 1. Loss of guadalupe-white differentiation involving left temporal and parietal lobes suggesting probable acute left MCA infarct. Clinical correlation is recommended. 2. No acute hemorrhage. 3. Moderate periventricular and subcortical white matter small vessel ischemic changes bilaterally. 4. Old lacunar infarcts within the left caudate and cerebellar hemispheres bilaterally. 5. Stable calcified 12 mm density within the sella which may represent aneurysm. Jonh Cain MD Chest X-Ray 04/24/17 0000 Signed Impressions: Service Date/Time: Monday, April 24, 2017 12:24 - CONCLUSION: 1. Endotracheal tube in appropriate position with tip measuring 3.5 cm from the austin. 2. Atelectasis at the left lung base. No acute pulmonary abnormality is seen. Edward Monterroso MD Cerebral Angiography 04/24/17 0000 Signed Impressions: Service Date/Time: Monday, April 24, 2017 00:00 - CONCLUSION: 1. Cerebral angiography confirms left M1 segment occlusion. 2. TICI-3 revascularization following single pass suction thrombectomy. Tae Cordero MD His condition is truly critical. I have discussed it with Dr. Rdz as well as the family at the bedside. He is not a surgical candidate. . He shows clinical and radiological evidence of uncal herniation and in my opinion he will not survive this condition, as there is no chance of meaningful recovery. The patient have advanced directives and his family would like to order them Pulmonary. aggressive pulmonary toilette, nasotracheal suction, and breathing treatments with nebulizers. Daily PT and OT Nutrition. NPO Renal. monitor closely urine output, BUN and creatinine Endocrine. Monitor serial Acu checks and SSI as needed in detail ID o monitor for signs of infection Protonix for stress ulcer prophylaxis New hose and SCD's for DVT prophylaxis Bertram Green MD Apr 25, 2017 12:37
--- NOTE | 2017-04-25 13:01 | HHI.DS ---
Discharge Summary Admission Date Apr 24, 2017 at 12:29 Discharge Date: Apr 25, 2017 Admitting Diagnosis stroke alert, CVA, aphasia, chronic renal failure (1) Acute ischemic left MCA stroke ICD Code: I63.512 - Cerebral infarction due to unspecified occlusion or stenosis of left middle cerebral artery Diagnosis: Principal Status: Acute (2) Respiratory failure with hypoxia and hypercapnia ICD Code: J96.91 - Respiratory failure, unspecified with hypoxia; J96.92 - Respiratory failure, unspecified with hypercapnia Diagnosis: Principal (3) Acute on chronic systolic (congestive) heart failure ICD Code: I50.23 - Acute on chronic systolic (congestive) heart failure Diagnosis: Secondary (4) Aphasia ICD Code: R47.01 - Aphasia Diagnosis: Principal Status: Acute (5) Hypertensive urgency ICD Code: I16.0 - Hypertensive urgency Diagnosis: Principal Status: Acute (6) Afib ICD Code: I48.91 - Unspecified atrial fibrillation Diagnosis: Secondary Status: Chronic (7) Chronic renal disease, stage 3, moderately decreased glomerular filtration rate (GFR) between 30-59 mL/min/1.73 square meter ICD Code: N18.3 - Chronic kidney disease, stage 3 (moderate) Diagnosis: Secondary Status: Chronic (8) Type 2 diabetes mellitus ICD Code: E11.9 - Type 2 diabetes mellitus without complications Diagnosis: Secondary Status: Chronic Brief History 86 y/o right handed man developed aphasia and right side weakness early today. Came to ED where CT head revealed probable right MCA ischemic stroke. Longstanding history of a-fib, systolic heart failure, hypertension. CBC/BMP: 04/24/17 1118 04/25/17 0448 Significant Findings Laboratory Tests Test 04/24/17 11:18 04/24/17 15:30 04/25/17 04:48 White Blood Count 11.4 TH/MM3 (4.0-11.0) Red Blood Count 3.39 MIL/MM3 (4.50-5.90) Hemoglobin 10.6 GM/DL (13.0-17.0) Bedside Hemoglobin 10.2 G/DL (13.0-17.0) Hematocrit 31.9 % (39.0-51.0) Bedside Hematocrit 30.0 % (39.0-51.0) Monocytes (%) (Auto) 12.9 % (0.0-8.0) Monocytes # (Auto) 1.5 TH/MM3 (0-0.9) Activated Partial Thromboplast Time 20.4 SEC (24.3-30.1) Bedside Blood Urea Nitrogen 50 MG/DL (5-21) Bedside Creatinine 3.1 MG/DL (0.6-1.3) Total Creatine Kinase 34 U/L (39-308) Troponin I LESS THAN 0.02 NG/ML B-Type Natriuretic Peptide 1199 PG/ML (0-100) HDL Cholesterol 31.4 MG/DL (40.0-60.0) Urine Turbidity HAZY (CLEAR) Urine Protein 100 mg/dL (NEG-TRACE) Urine Occult Blood SMALL (NEG) Urine Leukocyte Esterase LARGE (NEG) Urine RBC 10 /hpf (0-3) Urine WBC Clumps MOD (NONE) Urine Bacteria OCC /hpf (NONE) Blood Urea Nitrogen 57 MG/DL (7-18) Creatinine 3.38 MG/DL (0.60-1.30) Random Glucose 280 MG/DL (74-106) Albumin 2.9 GM/DL (3.4-5.0) Calcium Level 7.8 MG/DL (8.5-10.1) Potassium Level 5.2 MEQ/L (3.5-5.1) Chloride Level 112 MEQ/L (98-107) Carbon Dioxide Level 18.4 MEQ/L (21.0-32.0) Estimat Glomerular Filtration Rate 17 ML/MIN (>89) Imaging CT head: Hemorrhagic conversion left hemisphere, dominant in this patient. Family elected to withdraw artificial support and he at 1213 hours. PE at Discharge . Hospital Course Service Critical Care Medicine Primary Care Physician Nathan Reyes III, MD Admission Diagnosis stroke alert, CVA, aphasia, chronic renal failure Diagnosis: (1) Acute ischemic left MCA stroke Diagnosis: Principal (2) Aphasia Diagnosis: Principal (3) Hypertensive urgency Diagnosis: Principal (4) Afib Diagnosis: Secondary (5) Chronic renal disease, stage 3, moderately decreased glomerular filtration rate (GFR) between 30-59 mL/min/1.73 square meter Diagnosis: Secondary (6) Type 2 diabetes mellitus Diagnosis: Secondary 86 y/o right handed man developed aphasia and right side weakness early today. Came to ED where CT head revealed probable right MCA ischemic stroke. Longstanding history of a-fib, systolic heart failure, hypertension. 04/25: Received tPA for large area ischemic stroke. Now with decreased LOC, concern for bleed. Urgent CT head. Exacerbated heart failure is complicating care. Pt Condition on Discharge: Deteriorating Cecilio Brewer MD Apr 25, 2017 13:00
--- NOTE | 2017-04-25 18:23 | EKG ---
Date Performed: 04/24/2017 Time Performed: 12:20:26 PTAGE: 86 years EKG: ATRIAL FIBRILLATION WITH RAPID VENTRICULAR RESPONSE AND SOME ABERRANT CONDUCTION AT TIMES D IFFUSE NONSPECIFIC ST-T WAVE CHANGE INTRAVENTRICULAR CONDUCTION DISTURBANCE ABNORMAL ECG Compared to PREVIOUS TRACING , the heart rate is faster. PREVIOUS TRACIN02/13/2016 19.03 DOCTOR: Khoa Herrera Interpretating Date/Time 04/25/2017 18:22:28
--- NOTE | 2017-04-25 18:56 | ECHRPT ---
Indication: CVA/TIA CONCLUSIONS Normal left ventricular size. The left ventricular systolic function is normal with an estimated ejection fraction in the range of 50-55%. Wall thickness is normal. No definite regional wall motion abnormalities. The aortic valve is not well visualized. Possible mild aortic valve sclerosis. There is trace tricuspid valve regurgitation. Trace mild mitral valve regurgitation. BP: 97 / 63 HR: 87 Rhythm: Sinus MEASUREMENTS (Male / Female) Normal Values Technical Quality:Fair 2D ECHO LVOT Diameter 2.5 cm Aortic Root Diameter 3.8 cm M-MODE AV Cusp Separation MM 2.6 cm DOPPLER LVOT Peak Velocity 66.1 cm/s LVOT Peak Gradient 1.8 mmHg LVOT Velocity Time Integral 11.0 cm Mitral E Point Velocity 67.3 cm/s LV E' Septal Velocity 5.0 cm/s Mitral E to LV E' Septal Ratio 13.6 TR Peak Velocity 258.0 cm/s TR Peak Gradient 26.6 mmHg Right Atrial Pressure 10.0 mmHg Pulmonary Artery Systolic Pressu 36.6 mmHg Right Ventricular Systolic Press 36.6 mmHg PV Peak Velocity 50.0 cm/s PV Peak Gradient 1.0 mmHg FINDINGS LEFT VENTRICLE Normal left ventricular size. The left ventricular systolic function is normal with an estimated ejection fraction in the range of 50-55%. Wall thickness is normal. No definite regional wall motion abnormalities. RIGHT VENTRICLE Normal right ventricular size and systolic function. LEFT ATRIUM The left atrial size is normal. RIGHT ATRIUM The right atrial size is normal. AORTA The aortic root and proximal ascending aorta are not well visualized. MITRAL VALVE Trace mild mitral valve regurgitation. AORTIC VALVE The aortic valve is not well visualized. Possible mild aortic valve sclerosis. TRICUSPID VALVE There is trace tricuspid valve regurgitation. PULMONARY VALVE The pulmonary valve is not well visualized. VESSELS The inferior vena cava was not well visualized. PERICARDIUM No pericardial effusion. Herber Lazar MD (Electronically Signed) Final Date:25 April 2017 18:56
[2017-04-25] MEDS ORDERED: FAMOTIDINE 20 MG/2 ML VIAL IV PUSH SCH (21:00)
== END 2017-04-25 14:26 | disposition expired | DRG 23 ==
LOC: EDBD 11:19 → NEPE 11:19 → NEDA 12:29 → N03B 14:35
PROVIDERS: ADMIT Surgery Surgical Critical Care; ATTEND Surgery Surgical Critical Care
PROC: 03CG3ZZ Extirpation of Matter from Intracranial Artery, Percutaneous Approach (ICD-10-PCS; principal; 2017-04-24)
PROC: B31RYZZ Fluoroscopy of Intracranial Arteries using Other Contrast (ICD-10-PCS; 2017-04-24)
PROC: 3E03317 Introduction of Other Thrombolytic into Peripheral Vein, Percutaneous Approach (ICD-10-PCS; 2017-04-24)
PROC: 5A1935Z Respiratory Ventilation, Less than 24 Consecutive Hours (ICD-10-PCS; 2017-04-24)
PROC: 0BH17EZ Insertion of Endotracheal Airway into Trachea, Via Natural or Artificial Opening (ICD-10-PCS; 2017-04-24)
DX: I63.412 Cerebral infarction due to embolism of left middle cerebral artery (principal); I50.23 Acute on chronic systolic (congestive) heart failure; I61.2 Nontraumatic intracerebral hemorrhage in hemisphere, unspecified; G93.5 Compression of brain; J96.91 Respiratory failure, unspecified with hypoxia; J96.92 Respiratory failure, unspecified with hypercapnia; N17.9 Acute kidney failure, unspecified; I48.0 Paroxysmal atrial fibrillation; R47.01 Aphasia; G81.91 Hemiplegia, unspecified affecting right dominant side; I13.0 Hypertensive heart and chronic kidney disease with heart failure and stage 1 through stage 4 chronic kidney disease, or unspecified chronic kidney disease; E11.22 Type 2 diabetes mellitus with diabetic chronic kidney disease; D63.1 Anemia in chronic kidney disease; N18.3 Chronic kidney disease, stage 3 (moderate); R29.723 NIHSS score 23; I16.0 Hypertensive urgency; E78.5 Hyperlipidemia, unspecified; M19.90 Unspecified osteoarthritis, unspecified site; H91.90 Unspecified hearing loss, unspecified ear; F43.10 Post-traumatic stress disorder, unspecified; Z79.4 Long term (current) use of insulin; Z85.51 Personal history of malignant neoplasm of bladder; Z92.21 Personal history of antineoplastic chemotherapy; Z93.6 Other artificial openings of urinary tract status; Z95.1 Presence of aortocoronary bypass graft
CPT/HCPCS: 31500; 43752; 61645; 70450; 70544; 71045; 76937; 80048; 80061; 80069; 80307; 81001; 82550; 83880; 84443; 84484; 85025; 85384; 85610; 85730; 86850; 86900; 86901; 93005; 93306; 94002; 94003; 96374; 96375; C1760; C1769; C1887; C1894; J0690; J1170; J2250; J2997; J3010; J7030; J7040; J7050; Q9967